=== PATIENT | male | born 1940 | race Caucasian/White ===

== ENCOUNTER → 2017-08-11 | Outpatient (CLI) | payer MEDICARE ==
[2017-08-11 11:57] LABS: Blood Urea Nitrogen 18 mg/dL (9-20)
--- NOTE | 2017-08-11 17:06 | CT ---
EXAMINATION TYPE: CT chest w con DATE OF EXAM: 08/11/2017 COMPARISON: NONE HISTORY: Right sided swelling for [address] DLP: 673.3 mGycm, Automated exposure control for dose reduction was used. CONTRAST: Performed injected with 100 mL of Isovue 300. TECHNIQUE: Axial images were obtained at 5 mm thick sections. Reconstructed images are reviewed on [employer] computer in the coronal plane. FINDINGS: Portion of the thyroid visualized is normal. No suspicious lung nodules or focal infiltrates are present. There is a 1.1 cm lymph node in the pretracheal space near the lucas. Couple smaller pretracheal ly mph nodes are present. A 1.2 cm subcarinal lymph node is present on the left. Suspicious hilar adenop athy is not evident. No suspicious axillary adenopathy is evident. The ascending aorta diameter at the level of the main pulmonary artery is 4.1 cm. The main pulmonary artery diameter at the bifurcation is 1.[address] sections are obtained through the upper abdomen. Abdomen is essentially unremarkable. IMPRESSIONS: 1. Few enlarged lymph nodes within the mediastinum discussed above. 2. No suspicious etiology to account for reported right chest swelling
== END | disposition home or self-care (01) ==
LOC: RADCTMAIN 11:31
PROVIDERS: ATTEND Internal Medicine Geriatric Medicine
DX: R59.0 Localized enlarged lymph nodes (principal)
CPT/HCPCS: 82565; 84520; 71260; 36415; Q9967

== ENCOUNTER → 2017-10-08 | Outpatient (CLI) | payer MEDICARE | END | disposition home or self-care (01) | LOC: RADPETMAIN 07:43 | PROVIDERS: ATTEND Internal Medicine Critical Care Medicine | DX: R59.0 Localized enlarged lymph nodes (principal); Z53.9 Procedure and treatment not carried out, unspecified reason ==

== ENCOUNTER → 2017-10-22 | Outpatient (CLI) | payer MEDICARE ==
--- NOTE | 2017-10-24 08:05 | PE ---
EXAMINATION TYPE: PET CT fusion skull to thigh DATE OF EXAM: 10/22/2017 COMPARISON: CT abdomen and pelvis December 30, 2015. CT chest August 11, 2017. HISTORY: Mediastinal Lymphadenopathy per order. TECHNIQUE: Following the intravenous administration of 11.628 mCi of F-18 FDG, whole body images are performed from the skull base to the midthigh. Images are reviewed on the computer in the coronal, axial, and sagittal planes. Reconstructed rotating images are created on independent workstation and reviewed on the computer. A noncontrast CT is performed in conjunction with the PET scan. SCAN: Initial Scan FINDINGS: SKULL BASE AND NECK: No suspicious hypermetabolic uptake is present. CHEST, MEDIASTINUM, AND HILAR REGION: There is persistent borderline pericarinal lymph node measuring 1.1 x 1.0 cm axial image 93 without abnormal hypermetabolic uptake. There are prominent but subcenti meter additional subcarinal, AP window, and bilateral hilar lymph nodes without suspicious hypermetab olic uptake. No areas of abnormal hypermetabolic uptake are present. ABDOMEN AND PELVIS: No suspicious hypermetabolic uptake is seen. OSSEOUS STRUCTURES: No suspicious hypermetabolic uptake is noted. OTHER CT: Moderate calcified plaque right carotid bulb is present. Some focal scarring right middle lobe just above diaphragm axial image 119 is redemonstrated. There is severe 3 vessel coronary calcification which is noted marker for coronary artery disease. There is moderate biatrial dilatation. Ascending aorta measures up to 4.3 cm in diameter axial image 98. Cholecystectomy clips are redemonstrated. Small fat-containing umbilical hernia is redemonstrated. Small degree of bilateral gynecomastia is present. There is enlarged prostate gland consistent with BPH, correlate clinically bulging on bladder base. There is facet arthropathy lower lumbar levels. There is multilevel spurring in the lower thoracic sp ine. IMPRESSION: No suspicious hypermetabolic uptake is seen to suggest malignancy, stable borderline medi astinal lymph nodes favored benign without abnormal hypermetabolic uptake.
== END | disposition home or self-care (01) ==
LOC: RADPETMAIN 07:37
PROVIDERS: ATTEND Internal Medicine Critical Care Medicine
DX: R59.0 Localized enlarged lymph nodes (principal)
CPT/HCPCS: 78815; A9552

== ENCOUNTER 2017-12-06 07:06 | Emergency (ER) | payer MEDICARE ==
[2017-12-06 07:22] VITALS: RESP 18; TEMP 98.2
--- NOTE | 2017-12-06 07:33 | ED ---
Male Urogenital HPI - General Chief complaint: Urogenital Stated complaint: Urine retention, abdominal pain Time Seen by Provider: 12/06/17 07:23 Source: patient, RN notes reviewed Mode of arrival: ambulatory Limitations: no limitations - History of Present Illness Initial comments: 77-year-old male presents emergency Department chief complaint of unable to urinate. Patient states that this has been present again worse over the last few weeks but states overnight he states he cannot get a couple dribbles out and he feels a pressure. He states his bladder is full. Patient states that he does take Flomax on a regular basis has been taking it for several years. He states he has an appointment with urology but not for one month. Patient states that he cannot tolerate the pressure any more. - Related Data Home Medications Medication Instructions Recorded Confirmed Fish Oil/Dha/Epa [Fish Oil 1,200 1 cap PO DAILY 12/06/17 12/06/17 mg Fish Oil] Metoprolol Tartrate [Lopressor] 12.5 mg PO DAILY 12/06/17 12/06/17 Tamsulosin [Flomax] 0.4 mg PO DAILY 12/06/17 12/06/17 Warfarin [Coumadin] 5 mg PO HS 12/06/17 12/06/17 Allergies Allergy/AdvReac Type Severity Reaction Status Date / Time No Known Allergies Allergy Verified 12/06/17 08:20 Review of Systems ROS Statement: Those systems with pertinent positive or pertinent negative responses have been documented in the HPI. ROS Other: All systems not noted in ROS Statement are negative. Past Medical History Past Medical History: Atrial Fibrillation, Sleep Apnea/CPAP/BIPAP Additional Past Medical History / Comment(s): enlarged prostate History of Any Multi-Drug Resistant Organisms: None Reported Past Surgical History: Cholecystectomy Additional Past Surgical History / Comment(s): right first digit top phlange removed, bilateral knee ortho Past Psychological History: No Psychological Hx Reported Smoking Status: Former smoker Past Alcohol Use History: Daily Past Drug Use History: None Reported General Exam Limitations: no limitations General appearance: alert, in no apparent distress Respiratory exam: Present: normal lung sounds bilaterally. Absent: respiratory distress, wheezes, rales, rhonchi, stridor Cardiovascular Exam: Present: regular rate, normal rhythm, normal heart sounds. Absent: systolic murmur, diastolic murmur, rubs, gallop, clicks GI/Abdominal exam: Present: soft, distended (Lower, suprapubic region), tenderness, normal bowel sounds. Absent: guarding, rebound, rigid Back exam: Absent: CVA tenderness (R), CVA tenderness (L) Course Vital Signs 12/06/17 07:17 Temperature 98.2 F Pulse Rate 94 Respiratory 18 Rate Blood Pressure 181/87 O2 Sat by Pulse 95 Oximetry Medical Decision Making - Medical Decision Making 77-year-old male presented for urinary retention. He did have bladder scan showing greater than 999. Patient had a Wood placed which alleviated patient' s symptoms of urinary pressure abdominal pain. Patient will have Wood left in and follow-up with urology. Return parameters were discussed. - Lab Data Lab Results 12/06/17 Range/Units 08:16 Urine Color Light Yellow Urine Appearance Clear (Clear) Urine pH 5.0 (5.0-8.0) Ur Specific [place] 1.006 (1.001-1.035) Urine Protein Negative (Negative) Urine Glucose (UA) Negative (Negative) Urine Ketones Negative (Negative) Urine Blood Small H (Negative) Urine Nitrite Negative (Negative) Urine Bilirubin Negative (Negative) Urine Urobilinogen <2.0 (<2.0) mg/dL Ur Leukocyte Esterase Negative (Negative) Urine RBC 1 (0-5) /hpf Urine WBC 1 (0-5) /hpf Urine Mucus Rare H (None) /hpf Disposition Clinical Impression: Urinary retention Disposition: HOME SELF-CARE Condition: Stable Instructions: Urinary Retention in Men (ED) Additional Instructions: Please return to the Emergency Department if symptoms worsen or any other concerns. Is patient prescribed a controlled substance at d/c from ED?: No Referrals: Altaf Duff MD [Primary Care Provider] - 1-2 days Sam Grissom MD [STAFF PHYSICIAN] - 1-2 days Time of Disposition: 08:35
[2017-12-06 08:31] LABS: Appearance,Urine Clear (Clear); Bilirubin,Urine Negative (Negative); Blood,Urine Small (Negative); Color,Urine Light Yellow; Glucose,Urine (UA) Negative (Negative); Ketones,Urine Negative (Negative); Leukocyte Esterase,Urine Negative (Negative); Mucus,Urine Rare /hpf; Nitrite,Urine Negative (Negative); Protein,Urine Negative (Negative); RBC,Urine 1 /hpf (0-5); Specific Gravity,Urine 1.006 (1.001-1.035); Urobilinogen,Urine <2.0 mg/dL (<2.0); WBC,Urine 1 /hpf (0-5)
[2017-12-06 08:58] VITALS: BP 137/82; PULSE 85
== END 2017-12-06 08:56 | disposition home or self-care (01) ==
LOC: EC 07:06
DX: R33.9 Retention of urine, unspecified (principal); R14.0 Abdominal distension (gaseous); R10.9 Unspecified abdominal pain; I48.91 Unspecified atrial fibrillation; N40.1 Benign prostatic hyperplasia with lower urinary tract symptoms; G47.30 Sleep apnea, unspecified; Z87.891 Personal history of nicotine dependence; Z79.01 Long term (current) use of anticoagulants; Z79.899 Other long term (current) drug therapy; Z90.49 Acquired absence of other specified parts of digestive tract
CPT/HCPCS: 51798; 81001; 87086; 99284

== ENCOUNTER 2017-12-22 06:44 | Emergency (ER) | payer MEDICARE ==
[2017-12-22 06:53] VITALS: RESP 18
[2017-12-22] MEDS ORDERED: SODIUM CHLORIDE 0.9% 1,000 ML IV STA ×2 (07:33)
[2017-12-22] MEDS ORDERED: SODIUM CHLORIDE 0.9% 500 ML IV STA (07:33)
[2017-12-22] MEDS ORDERED: ACETAMINOPHEN TAB 500 MG TAB PO STA (07:43)
--- NOTE | 2017-12-22 07:45 | ED ---
Fever HPI - General Chief Complaint: Fever Stated Complaint: Catheter issue Time Seen by Provider: 12/22/17 07:33 Source: patient, family, RN notes reviewed Mode of arrival: wheelchair Limitations: no limitations - History of Present Illness Initial Comments: This is a 77-year-old male presents emergency Department chief complaint of fever. Patient states he woke up around 1 AM states he did not feel well states that he developed shaking chills around 6 AM. Patient states that he's had no cold-like symptoms including runny nose, sore throat, headache, neck pain , cough, chest congestion. Patient states that he has had a Wood catheter last 11 days in which she has seen neurology for and they told him to leave for 2 more weeks but states that he has noticed that his urine has become cloudy. Patient states that he had a fever this morning has not taken any Tylenol cannot take any NSAIDs due to currently being on Coumadin. Patient states he has no abdominal pain and no back or flank pain. - Related Data Home Medications Medication Instructions Recorded Confirmed Fish Oil/Dha/Epa [Fish Oil 1,200 1 cap PO DAILY 12/06/17 12/22/17 mg Fish Oil] Metoprolol Tartrate [Lopressor] 12.5 mg PO DAILY 12/06/17 12/22/17 Tamsulosin [Flomax] 0.4 mg PO DAILY 12/06/17 12/22/17 Warfarin [Coumadin] 5 mg PO HS 12/06/17 12/22/17 Glucosam/Tom-Msm1/C/Caleb/Bosw 1 tab PO DAILY 12/22/17 12/22/17 [Glucosamine-Chondroitin Tablet] Previous Rx's Medication Instructions Recorded Sulfamethox-Tmp 800-160Mg [Bactrim 1 each PO Q12HR #20 tab 12/22/17 Ds] Allergies Allergy/AdvReac Type Severity Reaction Status Date / Time No Known Allergies Allergy Verified 12/22/17 09:10 Review of Systems ROS Statement: Those systems with pertinent positive or pertinent negative responses have been documented in the HPI. ROS Other: All systems not noted in ROS Statement are negative. Past Medical History Past Medical History: Atrial Fibrillation, Sleep Apnea/CPAP/BIPAP Additional Past Medical History / Comment(s): enlarged prostate History of Any Multi-Drug Resistant Organisms: None Reported Past Surgical History: Cholecystectomy Additional Past Surgical History / Comment(s): right first digit top phlange removed, bilateral knee ortho Past Psychological History: No Psychological Hx Reported Smoking Status: Former smoker Past Alcohol Use History: Daily Past Drug Use History: None Reported General Exam Limitations: no limitations General appearance: alert, in no apparent distress Head exam: Present: atraumatic, normocephalic, normal inspection Eye exam: Present: normal appearance, PERRL, EOMI. Absent: scleral icterus, conjunctival injection, periorbital swelling ENT exam: Present: normal exam, normal oropharynx, mucous membranes moist Neck exam: Present: normal inspection, full ROM. Absent: tenderness, meningismus, lymphadenopathy Respiratory exam: Present: normal lung sounds bilaterally. Absent: respiratory distress, wheezes, rales, rhonchi, stridor Cardiovascular Exam: Present: regular rate, normal rhythm, normal heart sounds. Absent: systolic murmur, diastolic murmur, rubs, gallop, clicks GI/Abdominal exam: Present: soft, normal bowel sounds. Absent: distended, tenderness, guarding, rebound, rigid exam: Absent: normal inspection (Wood catheter in place) Back exam: Absent: CVA tenderness (R), CVA tenderness (L) Neurological exam: Present: alert, oriented X3, CN II-XII intact Skin exam: Present: warm, dry, intact, normal color. Absent: rash Course Vital Signs 12/22/17 12/22/17 06:49 08:13 Temperature 103.0 F H 100.4 F H Pulse Rate 71 82 Respiratory 18 18 Rate Blood Pressure 104/60 119/66 O2 Sat by Pulse 96 99 Oximetry Medical Decision Making - Medical Decision Making 77-year-old male presents emergency department for fever, possible urinary tract infection. Patient's found to have urinary tract infection caused by Wood. Patient we given 2 g Rocephin emergency Department discharge on ciprofloxacin and will follow-up urology. Return parameters discussed. - Lab Data Result diagrams: 12/22/17 08:15 12/22/17 08:15 Lab Results 12/22/17 12/22/17 12/22/17 Range/Units 08:15 08:15 08:15 WBC 12.0 H (3.8-10.6) k/uL RBC 4.47 (4.30-5.90) m/uL Hgb 14.0 (13.0-17.5) gm/dL Hct 42.1 (39.0-53.0) % MCV 94.2 (80.0-100.0) fL MCH 31.3 (25.0-35.0) pg MCHC 33.3 (31.0-37.0) g/dL RDW 12.8 (11.5-15.5) % Plt Count 135 L (150-450) k/uL Neutrophils % 94 % Lymphocytes % 2 % Monocytes % 2 % Eosinophils % 2 % Basophils % 0 % Neutrophils # 11.3 H (1.3-7.7) k/uL Lymphocytes # 0.3 L (1.0-4.8) k/uL Monocytes # 0.2 (0-1.0) k/uL Eosinophils # 0.2 (0-0.7) k/uL Basophils # 0.0 (0-0.2) k/uL PT (9.0-12.0) sec INR (<1.2) APTT (22.0-30.0) sec Sodium 134 L (137-145) mmol/L Potassium 4.1 (3.5-5.1) mmol/L Chloride 103 (98-107) mmol/L Carbon Dioxide 22 (22-30) mmol/L Anion Gap 9 mmol/L BUN 15 (9-20) mg/dL Creatinine 0.91 (0.66-1.25) mg/dL Est GFR (CKD-EPI)AfAm >90 (>60 ml/min/1.73 sqM) Est GFR (CKD-EPI)NonAf 81 (>60 ml/min/1.73 sqM) Glucose 114 H (74-99) mg/dL Plasma Lactic Acid Willie 2.0 (0.7-2.0) mmol/L Calcium 9.1 (8.4-10.2) mg/dL Total Bilirubin 2.1 H (0.2-1.3) mg/dL AST 27 (17-59) U/L ALT 27 (21-72) U/L Alkaline Phosphatase 51 (38-126) U/L Total Protein 6.2 L (6.3-8.2) g/dL Albumin 3.7 (3.5-5.0) g/dL Urine Color Urine Appearance (Clear) Urine pH (5.0-8.0) Ur Specific [place] (1.001-1.035) Urine Protein (Negative) Urine Glucose (UA) (Negative) Urine Ketones (Negative) Urine Blood (Negative) Urine Nitrite (Negative) Urine Bilirubin (Negative) Urine Urobilinogen (<2.0) mg/dL Ur Leukocyte Esterase (Negative) Urine RBC (0-5) /hpf Urine WBC (0-5) /hpf Urine WBC Clumps (None) /hpf Urine Bacteria (None) /hpf Urine Mucus (None) /hpf Urine Sperm (None) /hpf 12/22/17 12/22/17 Range/Units 08:15 08:15 WBC (3.8-10.6) k/uL RBC (4.30-5.90) m/uL Hgb (13.0-17.5) gm/dL Hct (39.0-53.0) % MCV (80.0-100.0) fL MCH (25.0-35.0) pg MCHC (31.0-37.0) g/dL RDW (11.5-15.5) % Plt Count (150-450) k/uL Neutrophils % % Lymphocytes % % Monocytes % % Eosinophils % % Basophils % % Neutrophils # (1.3-7.7) k/uL Lymphocytes # (1.0-4.8) k/uL Monocytes # (0-1.0) k/uL Eosinophils # (0-0.7) k/uL Basophils # (0-0.2) k/uL PT 14.9 H (9.0-12.0) sec INR 1.6 H (<1.2) APTT 26.4 (22.0-30.0) sec Sodium (137-145) mmol/L Potassium (3.5-5.1) mmol/L Chloride (98-107) mmol/L Carbon Dioxide (22-30) mmol/L Anion Gap mmol/L BUN (9-20) mg/dL Creatinine (0.66-1.25) mg/dL Est GFR (CKD-EPI)AfAm (>60 ml/min/1.73 sqM) Est GFR (CKD-EPI)NonAf (>60 ml/min/1.73 sqM) Glucose (74-99) mg/dL Plasma Lactic Acid [place] (0.7-2.0) mmol/L Calcium (8.4-10.2) mg/dL Total Bilirubin (0.2-1.3) mg/dL AST (17-59) U/L ALT (21-72) U/L Alkaline Phosphatase (38-126) U/L Total Protein (6.3-8.2) g/dL Albumin (3.5-5.0) g/dL Urine Color Yellow Urine Appearance Cloudy (Clear) Urine pH 6.5 (5.0-8.0) Ur Specific [place] 1.013 (1.001-1.035) Urine Protein 1+ H (Negative) Urine Glucose (UA) Negative (Negative) Urine Ketones Negative (Negative) Urine Blood Large H (Negative) Urine Nitrite Negative (Negative) Urine Bilirubin Negative (Negative) Urine Urobilinogen <2.0 (<2.0) mg/dL Ur Leukocyte Esterase Large H (Negative) Urine RBC >182 H (0-5) /hpf Urine WBC 148 H (0-5) /hpf Urine WBC Clumps Many H (None) /hpf Urine Bacteria Rare H (None) /hpf Urine Mucus Rare H (None) /hpf Urine Sperm Rare (None) /hpf Disposition Clinical Impression: UTI (urinary tract infection) due to urinary indwelling Wood catheter, Fever Disposition: HOME SELF-CARE Condition: Stable Instructions: Urinary Tract Infection in Men (ED) Additional Instructions: Please return to the Emergency Department if symptoms worsen or any other concerns. Prescriptions: Sulfamethox-Tmp 800-160Mg [Bactrim Ds] 1 each PO Q12HR #20 tab Is patient prescribed a controlled substance at d/c from ED?: No Referrals: Altaf Duff MD [Primary Care Provider] - 1-2 days Time of Disposition: 10:10
[2017-12-22] MEDS ORDERED: LIDOCAINE URO-JET JELLY 2% 5 ML KIT URETHRAL ONE (07:54)
[2017-12-22 08:51] LABS: Appearance,Urine Cloudy (Clear); Bacteria,Urine Rare /hpf; Bilirubin,Urine Negative (Negative); Blood,Urine Large (Negative); Color,Urine Yellow; Glucose,Urine (UA) Negative (Negative); Ketones,Urine Negative (Negative); Leukocyte Esterase,Urine Large (Negative); Mucus,Urine Rare /hpf; Nitrite,Urine Negative (Negative); PH, Urine 6.5 (5.0-8.0); Protein,Urine 1+ (Negative); RBC,Urine >182 /hpf (0-5); Specific Gravity,Urine 1.013 (1.001-1.035); Sperm,Urine Rare /hpf; Urobilinogen,Urine <2.0 mg/dL (<2.0); WBC,Urine 148 /hpf (0-5)
[2017-12-22 08:56] LABS: INR 1.6 (<1.2); Partial Thromboplastin Time 26.4 sec (22.0-30.0); Prothrombin Time 14.9 sec (9.0-12.0)
[2017-12-22 09:02] LABS: Basophils % (A) 0 %; Eosinophils # (A) 0.2 k/uL (0-0.7); Eosinophils % (A) 2 %; HCT 42.1 % (39.0-53.0); Lymphocytes # (A) 0.3 k/uL (1.0-4.8); Lymphocytes % (A) 2 %; MCH 31.3 pg (25.0-35.0); MCHC 33.3 g/dL (31.0-37.0); MCV 94.2 fL (80.0-100.0); Mean Platelet Volume 7.1; Monocytes # (A) 0.2 k/uL (0-1.0); Monocytes % (A) 2 %; Neutrophils # (A) 11.3 k/uL (1.3-7.7); Neutrophils % (A) 94 %; Platelet Count 135 k/uL (150-450); RBC 4.47 m/uL (4.30-5.90); RDW 12.8 % (11.5-15.5)
[2017-12-22 09:03] LABS: ALT 27 U/L (21-72); AST 27 U/L (17-59); Albumin 3.7 g/dL (3.5-5.0); Alkaline Phosphatase 51 U/L (38-126); Anion Gap 9 mmol/L; Blood Urea Nitrogen 15 mg/dL (9-20); Calcium 9.1 mg/dL (8.4-10.2); Carbon Dioxide 22 mmol/L (22-30); Chloride 103 mmol/L (98-107); Glucose 114 mg/dL (74-99); Potassium 4.1 mmol/L (3.5-5.1); Sodium 134 mmol/L (137-145); Total Bilirubin 2.1 mg/dL (0.2-1.3); Total Protein 6.2 g/dL (6.3-8.2)
[2017-12-22] MEDS ORDERED: cefTRIAXone IN SWFI 2,000 MG/20 ML SYRINGE IVP STA (10:09)
[2017-12-22 10:41] VITALS: BP 111/63; PULSE 78; TEMP 98.2
--- NOTE | 2017-12-23 03:47 | CDI ---
Documentation Clarification OP Dear Eddie Hennessy, PAC Please provide procedure done related to lidocaine administered. Thank you, Ahsan Gonzalez Marketing Research Coordinator If you have any questions, please contact [employer] at [phone] lidocaine used my nurse for charline FROST
== END 2017-12-22 11:06 | disposition home or self-care (01) ==
LOC: EC 06:44
DX: T83.518A Infection and inflammatory reaction due to other urinary catheter, initial encounter (principal); N39.0 Urinary tract infection, site not specified; N40.0 Benign prostatic hyperplasia without lower urinary tract symptoms; I48.91 Unspecified atrial fibrillation; G47.30 Sleep apnea, unspecified; Z99.89 Dependence on other enabling machines and devices; Z87.891 Personal history of nicotine dependence; Z79.01 Long term (current) use of anticoagulants; Z79.899 Other long term (current) drug therapy; Y84.6 Urinary catheterization as the cause of abnormal reaction of the patient, or of later complication, without mention of misadventure at the time of the procedure
CPT/HCPCS: 99283; 96374; 96361 ×3; 36415; 80053; 83605; 85025; 85610; 85730; 81001; 87040; 87086; 87077; 87186; J0696

== ENCOUNTER → 2018-01-23 | Outpatient (CLI) | payer MEDICARE ==
--- NOTE | 2018-01-23 08:56 | US ---
EXAMINATION TYPE: US prostate transrectal DATE OF EXAM: 01/23/2018 COMPARISON: NONE CLINICAL HISTORY: N40.0 Benign BPH. History of enlarged prostate. Patient has catheter in because he can't empty his bladder. This examination was performed using the transrectal probe. EXAM MEASUREMENTS: Gland Size: 8.1 x 4.5 x 5.9cm Volume: 112.4 Predicted PSA: 13.5 Actual PSA (if available):3.2 Grossly enlarged gland, heterogeneous, no obvious mass seen. Wood catheter is present. IMPRESSION: Enlarged and heterogenous prostate gland with findings of benign prostatic hypertrophy. No focal suspicious hypoechoic lesion.
== END | disposition home or self-care (01) ==
LOC: RADUSMAIN 07:51
PROVIDERS: ATTEND Urology
DX: N40.0 Benign prostatic hyperplasia without lower urinary tract symptoms (principal); Z88.8 Allergy status to other drugs, medicaments and biological substances
CPT/HCPCS: 76872

== ENCOUNTER 2018-01-31 08:53 | Inpatient (IN) | payer MEDICARE ==
[2018-01-31] MEDS ORDERED: IBUPROFEN IV 600 MG in SODIUM CHLORIDE 0.9% 250 ML IV STA (09:51)
[2018-01-31] MEDS ORDERED: ACETAMINOPHEN TAB 500 MG TAB PO STA (09:51)
[2018-01-31] MEDS: SODIUM CHLORIDE 0.9% 500 ML 500 ML IV SCH ×3 (10:02→10:55)
--- NOTE | 2018-01-31 10:33 | ED ---
Fever HPI - General Chief Complaint: Fever Stated Complaint: tremors Time Seen by Provider: 01/31/18 09:46 Source: patient, RN notes reviewed, old records reviewed Mode of arrival: wheelchair Limitations: no limitations - History of Present Illness Initial Comments: Patient is a 77-year-old male presents today with chief complaint of fever bodyaches altered mental status. He complains of severe weakness. Patient has been treated for significant urinary tract infections. He is currently on an antibiotic. He had his catheter removed yesterday from his urologist Dr. Sandoval. Patient is on Coumadin Patient has a history of atrial fibrillation. Patient recently proceeded greenlight therapy for enlarged prostate. They were unable to suture procedure due to the fact the Patient is on Coumadin. Patient arrives to emergency room with fever 103.3. His complaints and back pain. Minimal abdominal discomfort. Patient has had no recent Motrin or Tylenol. - Related Data Home Medications Medication Instructions Recorded Confirmed Fish Oil/Dha/Epa [Fish Oil 1,200 1 cap PO DAILY 12/06/17 01/31/18 mg Fish Oil] Metoprolol Tartrate [Lopressor] 12.5 mg PO DAILY 12/06/17 01/31/18 Tamsulosin [Flomax] 0.4 mg PO DAILY 12/06/17 01/31/18 Warfarin [Coumadin] 5 mg PO SUTUTHFR 12/06/17 01/31/18 Glucosam/Tom-Msm1/C/Caleb/Bosw 1 tab PO DAILY 12/22/17 01/31/18 [Glucosamine-Chondroitin Tablet] Warfarin [Coumadin] 7.5 mg PO MOWESA 01/31/18 01/31/18 Allergies Allergy/AdvReac Type Severity Reaction Status Date / Time terbinafine [From Lamisil] Allergy Rash/Hives Verified 01/31/18 10:23 sulfamethoxazole AdvReac Unknown Verified 01/31/18 10:23 [From Bactrim] trimethoprim [From Bactrim] AdvReac Unknown Verified 01/31/18 10:23 Review of Systems ROS Statement: Those systems with pertinent positive or pertinent negative responses have been documented in the HPI. ROS Other: All systems not noted in ROS Statement are negative. Past Medical History Past Medical History: Atrial Fibrillation, Sleep Apnea/CPAP/BIPAP Additional Past Medical History / Comment(s): enlarged prostate History of Any Multi-Drug Resistant Organisms: None Reported Past Surgical History: Cholecystectomy Additional Past Surgical History / Comment(s): right first digit top phlange removed, bilateral knee ortho Past Psychological History: No Psychological Hx Reported Smoking Status: Former smoker Past Alcohol Use History: Daily Past Drug Use History: None Reported General Exam - General Exam Comments Initial Comments: Weak appearing 77-year-old male. Patient appears in moderate distress. Limitations: no limitations General appearance: alert, in no apparent distress Head exam: Present: atraumatic Eye exam: Present: normal appearance, PERRL, EOMI. Absent: scleral icterus, conjunctival injection, periorbital swelling ENT exam: Present: normal exam, mucous membranes moist Neck exam: Present: normal inspection. Absent: tenderness, meningismus, lymphadenopathy Respiratory exam: Present: normal lung sounds bilaterally. Absent: respiratory distress, wheezes, rales, rhonchi, stridor Cardiovascular Exam: Present: normal rhythm, normal heart sounds. Absent: regular rate (Tachycardic at 120 beats were minute.), systolic murmur, diastolic murmur, rubs, gallop, clicks GI/Abdominal exam: Present: soft, normal bowel sounds. Absent: distended, tenderness, guarding, rebound, rigid Back exam: Present: normal inspection Neurological exam: Present: alert Psychiatric exam: Present: normal affect, normal mood Skin exam: Present: warm Course Vital Signs 01/31/18 01/31/18 01/31/18 09:09 09:40 09:50 Temperature 102.7 F H 103.3 F H Pulse Rate 118 H Respiratory 20 18 Rate Blood Pressure 138/79 124/54 O2 Sat by Pulse 95 95 Oximetry 01/31/18 01/31/18 01/31/18 10:00 10:30 11:00 Temperature 102.4 F H Pulse Rate 97 85 106 H Respiratory 18 18 18 Rate Blood Pressure 124/54 121/74 105/68 O2 Sat by Pulse 97 98 96 Oximetry 01/31/18 01/31/18 01/31/18 11:15 11:25 11:45 Temperature Pulse Rate 86 105 H Respiratory 18 18 Rate Blood Pressure 97/51 84/54 96/50 O2 Sat by Pulse 95 94 L Oximetry 01/31/18 01/31/18 01/31/18 11:52 12:00 12:30 Temperature 101.2 F H Pulse Rate 106 H 107 H Respiratory 12 21 Rate Blood Pressure 84/60 92/59 O2 Sat by Pulse 95 Oximetry 01/31/18 01/31/18 01/31/18 12:31 12:32 12:33 Temperature Pulse Rate 93 114 H Respiratory 15 7 L 5 L Rate Blood Pressure 92/59 96/62 96/62 O2 Sat by Pulse Oximetry 01/31/18 01/31/18 01/31/18 12:34 12:35 12:36 Temperature Pulse Rate 89 100 107 H Respiratory 14 22 20 Rate Blood Pressure 96/62 96/62 96/62 O2 Sat by Pulse Oximetry 01/31/18 01/31/18 01/31/18 12:37 12:38 12:39 Temperature Pulse Rate 110 H 120 H 105 H Respiratory 34 H 23 34 H Rate Blood Pressure 97/72 97/72 97/72 O2 Sat by Pulse Oximetry 01/31/18 01/31/18 01/31/18 12:40 12:41 12:42 Temperature Pulse Rate Respiratory Rate Blood Pressure 97/72 97/72 97/72 O2 Sat by Pulse Oximetry 01/31/18 01/31/18 01/31/18 12:43 12:44 12:45 Temperature Pulse Rate Respiratory Rate Blood Pressure 97/72 97/72 97/72 O2 Sat by Pulse Oximetry 01/31/18 01/31/18 01/31/18 12:46 12:47 12:48 Temperature Pulse Rate Respiratory Rate Blood Pressure 110/66 110/66 110/66 O2 Sat by Pulse Oximetry 01/31/18 01/31/18 01/31/18 12:49 12:50 12:51 Temperature Pulse Rate 112 H 103 H Respiratory 12 9 L Rate Blood Pressure 110/66 110/66 110/66 O2 Sat by Pulse Oximetry 01/31/18 01/31/18 01/31/18 12:52 12:53 12:55 Temperature Pulse Rate 108 H 105 H Respiratory 26 H 5 L 18 Rate Blood Pressure 110/66 110/66 O2 Sat by Pulse Oximetry 01/31/18 13:32 Temperature 98.2 F Pulse Rate 89 Respiratory 18 Rate Blood Pressure 87/55 O2 Sat by Pulse 96 Oximetry Medical Decision Making - Medical Decision Making 77-year-old male presents emergency department today with chief complaint of rigors, altered mental status and confusion. Concern for urinary tract infection. Patient had recent urinary catheter removed yesterday by Dr. Sandoval. This tender concern for a further urinary tract infection. He has not been able to urinate today. He did urinate earlier this morning. Patient was given aggressive fluid resuscitation had a fever of 103.9. Tachycardic at 120 bpm. Patient was given 2 L bolus, Motrin Tylenol. After his fever diminished she became less disoriented and is otherwise feeling much better. Urinalysis after he completed a Wood catheter due to urinary retention, shows significant UTI. Patient was started on initially Rocephin but past urine culture we'll put the Patient on Unasyn at this time. Chest x-rays reviewed and normal. Patient will be admitted at this time for urosepsis. - Lab Data Result diagrams: 01/31/18 09:45 01/31/18 09:45 Lab Results 01/31/18 01/31/18 01/31/18 Range/Units 09:45 09:45 09:45 WBC 6.5 (3.8-10.6) k/uL RBC 4.37 (4.30-5.90) m/uL Hgb 14.0 (13.0-17.5) gm/dL Hct 41.1 (39.0-53.0) % MCV 94.1 (80.0-100.0) fL MCH 32.1 (25.0-35.0) pg MCHC 34.1 (31.0-37.0) g/dL RDW 12.5 (11.5-15.5) % Plt Count 156 (150-450) k/uL Neutrophils % (Manual) 81 % Band Neutrophils % 13 % Lymphocytes % (Manual) 5 % Eosinophils % (Manual) 2 % Neutrophils # (Manual) 6.10 (1.3-7.7) k/uL Lymphocytes # (Manual) 0.33 L (1.0-4.8) k/uL Eosinophils # (Manual) 0.13 (0-0.7) k/uL Nucleated RBCs 0 (0-0) /100 WBC Toxic Granulation Present Poikilocytosis (manual Present Anisocytosis (manual) Present Stomatocytes Present PT (9.0-12.0) sec INR (<1.2) APTT (22.0-30.0) sec Sodium 136 L (137-145) mmol/L Potassium 4.8 (3.5-5.1) mmol/L Chloride 102 (98-107) mmol/L Carbon Dioxide 23 (22-30) mmol/L Anion Gap 11 mmol/L BUN 18 (9-20) mg/dL Creatinine 0.92 (0.66-1.25) mg/dL Est GFR (CKD-EPI)AfAm >90 (>60 ml/min/1.73 sqM) Est GFR (CKD-EPI)NonAf 80 (>60 ml/min/1.73 sqM) Glucose 124 H (74-99) mg/dL Plasma Lactic Acid Willie (0.7-2.0) mmol/L Calcium 9.0 (8.4-10.2) mg/dL Total Bilirubin 1.5 H (0.2-1.3) mg/dL AST 29 (17-59) U/L ALT 42 (21-72) U/L Alkaline Phosphatase 59 (38-126) U/L Total Creatine Kinase 35 L (55-170) U/L CK-MB (CK-2) 0.5 (0.0-2.4) ng/mL CK-MB (CK-2) Rel Index 1.4 Troponin I <0.012 (0.000-0.034) ng/mL Total Protein 6.4 (6.3-8.2) g/dL Albumin 3.9 (3.5-5.0) g/dL Urine Color Urine Appearance (Clear) Urine pH (5.0-8.0) Ur Specific Sharon (1.001-1.035) Urine Protein (Negative) Urine Glucose (UA) (Negative) Urine Ketones (Negative) Urine Blood (Negative) Urine Nitrite (Negative) Urine Bilirubin (Negative) Urine Urobilinogen (<2.0) mg/dL Ur Leukocyte Esterase (Negative) Urine RBC (0-5) /hpf Urine WBC (0-5) /hpf Urine Bacteria (None) /hpf Urine Mucus (None) /hpf 01/31/18 01/31/18 01/31/18 Range/Units 09:45 09:45 13:04 WBC (3.8-10.6) k/uL RBC (4.30-5.90) m/uL Hgb (13.0-17.5) gm/dL Hct (39.0-53.0) % MCV (80.0-100.0) fL MCH (25.0-35.0) pg MCHC (31.0-37.0) g/dL RDW (11.5-15.5) % Plt Count (150-450) k/uL Neutrophils % (Manual) % Band Neutrophils % % Lymphocytes % (Manual) % Eosinophils % (Manual) % Neutrophils # (Manual) (1.3-7.7) k/uL Lymphocytes # (Manual) (1.0-4.8) k/uL Eosinophils # (Manual) (0-0.7) k/uL Nucleated RBCs (0-0) /100 WBC Toxic Granulation Poikilocytosis (manual Anisocytosis (manual) Stomatocytes PT 12.4 H (9.0-12.0) sec INR 1.3 H (<1.2) APTT 24.0 (22.0-30.0) sec Sodium (137-145) mmol/L Potassium (3.5-5.1) mmol/L Chloride (98-107) mmol/L Carbon Dioxide (22-30) mmol/L Anion Gap mmol/L BUN (9-20) mg/dL Creatinine (0.66-1.25) mg/dL Est GFR (CKD-EPI)AfAm (>60 ml/min/1.73 sqM) Est GFR (CKD-EPI)NonAf (>60 ml/min/1.73 sqM) Glucose (74-99) mg/dL Plasma Lactic Acid Willie 1.6 (0.7-2.0) mmol/L Calcium (8.4-10.2) mg/dL Total Bilirubin (0.2-1.3) mg/dL AST (17-59) U/L ALT (21-72) U/L Alkaline Phosphatase (38-126) U/L Total Creatine Kinase (55-170) U/L CK-MB (CK-2) (0.0-2.4) ng/mL CK-MB (CK-2) Rel Index Troponin I (0.000-0.034) ng/mL Total Protein (6.3-8.2) g/dL Albumin (3.5-5.0) g/dL Urine Color Yellow Urine Appearance Turbid (Clear) Urine pH 6.0 (5.0-8.0) Ur Specific Sharon 1.014 (1.001-1.035) Urine Protein 1+ H (Negative) Urine Glucose (UA) Negative (Negative) Urine Ketones Negative (Negative) Urine Blood Moderate H (Negative) Urine Nitrite Negative (Negative) Urine Bilirubin Negative (Negative) Urine Urobilinogen <2.0 (<2.0) mg/dL Ur Leukocyte Esterase Large H (Negative) Urine RBC 60 H (0-5) /hpf Urine WBC >182 H (0-5) /hpf Urine Bacteria Many H (None) /hpf Urine Mucus Rare H (None) /hpf 01/31/18 10:32 EKG shows A. fib with RVR ST-T wave abnormality considering lateral ischemia. Ventricular rate of 113 beats were minute. QRS ration 72. QTQTC 300/411. - Radiology Data Radiology results: report reviewed Chest x-rays negative for any acute cardio pulmonary process. Disposition Clinical Impression: UTI (urinary tract infection), Sepsis Disposition: ADMITTED IP TO THIS HOSP Condition: Stable Referrals: Altaf Duff MD [Primary Care Provider] - 1-2 days Time of Disposition: 13:46
[2018-01-31 10:36] LABS: HCT 41.1 % (39.0-53.0); MCH 32.1 pg (25.0-35.0); MCHC 34.1 g/dL (31.0-37.0); MCV 94.1 fL (80.0-100.0); Mean Platelet Volume 7.3; Platelet Count 156 k/uL (150-450); RBC 4.37 m/uL (4.30-5.90); RDW 12.5 % (11.5-15.5); WBC 6.5 k/uL (3.8-10.6)
[2018-01-31 10:43] LABS: INR 1.3 (<1.2); Prothrombin Time 12.4 sec (9.0-12.0)
[2018-01-31 10:48] LABS: ALT 42 U/L (21-72); AST 29 U/L (17-59); Albumin 3.9 g/dL (3.5-5.0); Alkaline Phosphatase 59 U/L (38-126); Anion Gap 11 mmol/L; Blood Urea Nitrogen 18 mg/dL (9-20); Carbon Dioxide 23 mmol/L (22-30); Chloride 102 mmol/L (98-107); Glucose 124 mg/dL (74-99); Potassium 4.8 mmol/L (3.5-5.1); Sodium 136 mmol/L (137-145); Total Bilirubin 1.5 mg/dL (0.2-1.3); Total Protein 6.4 g/dL (6.3-8.2)
[2018-01-31] MEDS: SODIUM CHLORIDE 0.9% 1,000 ML IV SCH ×2 (10:54→20:16)
[2018-01-31 11:03] LABS: Creatine Kinase 35 U/L (55-170)
[2018-01-31 11:05] LABS: Band Neutrophils % 13 %; Eosinophils # (M) 0.13 k/uL (0-0.7); Lymphocytes # (M) 0.33 k/uL (1.0-4.8); Neutrophils % (M) 81 %; Nucleated Red Blood Cells 0 /100 WBC (0-0); Total Cells Counted 200
[2018-01-31 11:06] LABS: Anisocytosis (M) Present; Poikilocytosis (M) Present; Stomatocytes Present; Toxic Granulation Present
[2018-01-31 11:14] LABS: Creatine Kinase MB 0.5 ng/mL (0.0-2.4); Troponin I <0.012 ng/mL (0.000-0.034)
--- NOTE | 2018-01-31 12:29 | XR ---
EXAMINATION TYPE: XR chest 2V DATE OF EXAM: 01/31/2018 COMPARISON: NONE HISTORY: Fever and urinary tract infection TECHNIQUE: Frontal and lateral views of the chest are obtained. FINDINGS: Low lung volumes creating crowding of the pulmonary vasculature. There is no focal air spac e opacity, pleural effusion, or pneumothorax seen. The cardiac silhouette size is enlarged. The os seous structures are intact. Mild multilevel degenerative changes of the thoracic spine are seen. Karey gical clips are seen within the right upper quadrant. IMPRESSION: No acute cardiopulmonary process.
[2018-01-31] MEDS ORDERED: AMPICILLIN-SULBACTAM 3 GM in SODIUM CHLORIDE 0.9% 100 ML IVPB STA (12:36)
[2018-01-31] MEDS ORDERED: LIDOCAINE URO-JET JELLY 2% 5 ML KIT URETHRAL ONE (12:49)
[2018-01-31 13:36] LABS: Appearance,Urine Turbid (Clear); Bacteria,Urine Many /hpf; Bilirubin,Urine Negative (Negative); Blood,Urine Moderate (Negative); Color,Urine Yellow; Glucose,Urine (UA) Negative (Negative); Ketones,Urine Negative (Negative); Leukocyte Esterase,Urine Large (Negative); Mucus,Urine Rare /hpf; Nitrite,Urine Negative (Negative); Protein,Urine 1+ (Negative); RBC,Urine 60 /hpf (0-5); Specific Gravity,Urine 1.014 (1.001-1.035); Urobilinogen,Urine <2.0 mg/dL (<2.0); WBC,Urine >182 /hpf (0-5)
[2018-01-31] MEDS ORDERED: NALOXONE 0.4 MG/ML 1 ML VIAL IV PRN (14:08)
[2018-01-31] MEDS ORDERED: HYDROcodone/APAP 5-325MG 1 EACH TAB PO PRN (14:08)
[2018-01-31 16:44] LABS: Glucose,Whole Blood 125 mg/dL (75-99)
[2018-01-31] MEDS ORDERED: WARFARIN 5 MG TAB PO SCH (18:00)
[2018-01-31] MEDS: PIPERACILLIN-TAZOBACTAM 3.375 GM in DEXTROSE/WATER 1 50ML.BAG IVPB SCH (18:11)
[2018-01-31] MEDS: DOCUSATE 100 MG CAP PO SCH (20:13)
[2018-02-01] MEDS: PIPERACILLIN-TAZOBACTAM 3.375 GM in DEXTROSE/WATER 1 50ML.BAG IVPB SCH ×3 (03:11→20:10)
[2018-02-01] MEDS: SODIUM CHLORIDE 0.9% 1,000 ML IV SCH ×3 (06:27→20:11)
[2018-02-01 06:41] LABS: Basophils # (A) 0.1 k/uL (0-0.2); Basophils % (A) 0 %; Eosinophils # (A) 0.3 k/uL (0-0.7); Eosinophils % (A) 1 %; HCT 35.4 % (39.0-53.0); HGB 11.8 gm/dL (13.0-17.5); Lymphocytes % (A) 5 %; MCH 31.9 pg (25.0-35.0); MCHC 33.3 g/dL (31.0-37.0); MCV 95.7 fL (80.0-100.0); Mean Platelet Volume 7.4; Monocytes # (A) 0.8 k/uL (0-1.0); Monocytes % (A) 4 %; Neutrophils # (A) 19.5 k/uL (1.3-7.7); Neutrophils % (A) 89 %; Platelet Count 114 k/uL (150-450); RDW 12.8 % (11.5-15.5); WBC 21.9 k/uL (3.8-10.6)
[2018-02-01 06:49] LABS: Calcium 8.4 mg/dL (8.4-10.2); Magnesium 1.7 mg/dL (1.6-2.3); Potassium 4.3 mmol/L (3.5-5.1)
[2018-02-01 07:34] LABS: Glucose,Whole Blood 96 mg/dL (75-99)
[2018-02-01] MEDS: MAGNESIUM SULFATE-D5W PMX 1 GM in DEXTROSE/WATER 1 100ML.BAG IVPB SCH ×2 (08:08→11:28)
[2018-02-01] MEDS: TAMSULOSIN 0.4 MG CAP.ER.24H PO SCH (08:09)
[2018-02-01] MEDS: DOCUSATE 100 MG CAP PO SCH ×2 (08:09→20:10)
[2018-02-01] MEDS: METOPROLOL TARTRATE 12.5 MG TAB PO SCH (08:09)
--- NOTE | 2018-02-01 08:42 | P.CNPUL ---
History of Present Illness Consult date: 02/01/18 Reason for consult: other Chief complaint: Urosepsis History of present illness: This is a 77-year-old white male patient of Dr. Duff, who presented to the emergency department on 01/31/2018 for evaluation of fever, body aches, status, severe weakness. Patient had a recent laser procedure for enlarged prostate a week ago on Tuesday. He was seen by Dr. Law in follow-up, and had his urinary catheter removed. Patient has then developed some urinary retention. Patient has been treated for significant urinary tract infections. He was on a course of oral antibiotics at the time of his presentation. Patient was febrile with a temp of 103.3F. He was complaining of back pain, and some minimal abdominal discomfort. Patient was tachycardic, with a heart rate at 120 BPM. Patient was fluid resuscitated with 2 L of IV fluids, never did require vasopressor support. He was started on Rocephin initially in the emergency department, however he was then switched to Unasyn, and then to Zosyn on which he currently remains. Urinary catheter was placed for urinary retention. Initial blood work did not show any leukocytosis, WBC was 6.5, hemoglobin is 14, renal profile and electrolytes were essentially unremarkable. Urinalysis showed moderate blood, large leukocyte esterase, greater than 180 2. blood cells, and many bacteria. Urine and blood cultures have been collected and sent, and preliminary blood cultures were positive for gram- negative bacilli. Final culture is pending. Chest x-ray was negative. Today' s blood work was reviewed, there has been acute elevation of white count at 21.9 , electrolytes were within normal limits, B1 is 25, creatinine is 1.08. Patient is afebrile this morning, he is awake and alert, oriented 3, in no acute distress, denies any shortness of breath or chest pain. Denies any other discomfort, he sitting up in bed eating breakfast. His IV fluids is 0.9 normal saline at a rate of 120 ML per hour. He is currently on 2 L per nasal cannula with a pulse ox of 98%. Hemodynamically stable. Review of Systems All systems: negative Constitutional: Denies chills, Denies fever Eyes: denies blurred vision, denies pain Ears, nose, mouth and throat: Denies headache, Denies sore throat Cardiovascular: Denies chest pain, Denies shortness of breath Respiratory: Denies cough Gastrointestinal: Denies abdominal pain, Denies diarrhea, Denies nausea, Denies vomiting Musculoskeletal: Denies myalgias Integumentary: Denies pruritus, Denies rash Neurological: Denies numbness, Denies weakness Psychiatric: Denies anxiety, Denies depression Endocrine: Denies fatigue, Denies weight change Past Medical History Past Medical History: Atrial Fibrillation, Prostate Disorder, Sleep Apnea/CPAP/ BIPAP Additional Past Medical History / Comment(s): Current UTI, recent urinary retention/IDC which was discontinued 01/30/18, past BPH and had greenlight laser treatment at [place], TORI with bipap History of Any Multi-Drug Resistant Organisms: None Reported Past Surgical History: Cholecystectomy, Orthopedic Surgery, Prostate Surgery Additional Past Surgical History / Comment(s): 01/25/18 prostrate greenlight laser treatment at [place], right first digit top phlange removed, bilateral knee arthroscopy, colonoscopy-normal. Past Anesthesia/Blood Transfusion Reactions: No Reported Reaction Smoking Status: Former smoker - Past Family History Father Family Medical History: Dementia Mother Additional Family Medical History / Comment(s): Scoliosis. Medications and Allergies Home Medications Medication Instructions Recorded Confirmed Type Fish Oil/Dha/Epa [Fish Oil 1,200 1 cap PO DAILY 12/06/17 01/31/18 History mg Fish Oil] Metoprolol Tartrate [Lopressor] 12.5 mg PO DAILY 12/06/17 01/31/18 History Tamsulosin [Flomax] 0.4 mg PO DAILY 12/06/17 01/31/18 History Warfarin [Coumadin] 5 mg PO SUTUTHFR 12/06/17 01/31/18 History Glucosam/Tom-Msm1/C/Caleb/Bosw 1 tab PO DAILY 12/22/17 01/31/18 History [Glucosamine-Chondroitin Tablet] Warfarin [Coumadin] 7.5 mg PO MOWESA 01/31/18 01/31/18 History Allergies Allergy/AdvReac Type Severity Reaction Status Date / Time terbinafine [From Lamisil] Allergy Rash/Hives Verified 01/31/18 10:23 sulfamethoxazole AdvReac Unknown Verified 01/31/18 10:23 [From Bactrim] trimethoprim [From Bactrim] AdvReac Unknown Verified 01/31/18 10:23 Physical Exam Vitals: Vital Signs Temp Pulse Resp BP Pulse Ox 02/01/18 08:00 97.7 F 89 14 121/60 98 02/01/18 07:00 73 24 99/65 97 02/01/18 06:00 88 26 H 114/77 97 02/01/18 05:00 82 12 92/54 96 02/01/18 04:00 97.6 F 83 26 H 106/66 98 02/01/18 03:00 86 16 97/61 96 02/01/18 02:00 66 23 99/55 96 02/01/18 01:00 70 22 94/59 96 02/01/18 00:00 98 F 68 25 H 90/55 96 01/31/18 23:00 68 16 98/66 97 01/31/18 22:00 66 27 H 95/63 96 01/31/18 21:00 97.7 F 80 16 94/63 98 01/31/18 20:00 75 28 H 102/66 95 01/31/18 19:00 85 25 H 100/63 96 01/31/18 18:00 87 19 96/67 96 01/31/18 17:30 92 24 92/63 98 01/31/18 17:00 108 H 19 99/70 97 01/31/18 16:44 78 18 96/52 98 01/31/18 16:41 87 27 H 01/31/18 16:00 98.4 F 91 16 99/62 98 01/31/18 15:30 103 H 18 89/59 97 01/31/18 15:00 98 16 93/60 97 01/31/18 14:30 106 H 18 85/52 96 01/31/18 14:00 96 18 86/53 96 01/31/18 13:45 89 18 92/67 97 01/31/18 13:32 98.2 F 89 18 87/55 96 01/31/18 13:30 102 H 18 88/51 97 01/31/18 13:00 105 H 18 110/66 96 01/31/18 12:55 18 01/31/18 12:53 105 H 5 L 110/66 01/31/18 12:52 108 H 26 H 110/66 01/31/18 12:51 103 H 9 L 110/66 01/31/18 12:50 112 H 12 110/66 01/31/18 12:49 110/66 01/31/18 12:48 110/66 01/31/18 12:47 110/66 01/31/18 12:46 110/66 01/31/18 12:45 97/72 01/31/18 12:44 97/72 01/31/18 12:43 97/72 01/31/18 12:42 97/72 01/31/18 12:41 97/72 01/31/18 12:40 97/72 01/31/18 12:39 105 H 34 H 97/72 01/31/18 12:38 120 H 23 97/72 01/31/18 12:37 110 H 34 H 97/72 01/31/18 12:36 107 H 20 96/62 01/31/18 12:35 100 22 96/62 01/31/18 12:34 89 14 96/62 01/31/18 12:33 114 H 5 L 96/62 01/31/18 12:32 93 7 L 96/62 01/31/18 12:31 15 92/59 01/31/18 12:30 107 H 21 92/59 01/31/18 12:00 106 H 12 84/60 95 01/31/18 11:52 101.2 F H 01/31/18 11:45 105 H 18 96/50 94 L 01/31/18 11:25 84/54 01/31/18 11:15 86 18 97/51 95 01/31/18 11:00 106 H 18 105/68 96 01/31/18 10:30 102.4 F H 85 18 121/74 98 01/31/18 10:00 97 18 124/54 97 01/31/18 09:50 103.3 F H 01/31/18 09:40 18 124/54 95 01/31/18 09:09 102.7 F H 118 H 20 138/79 95 Intake and Output 01/31/18 02/01/18 02/01/18 22:59 06:59 14:59 Intake Total 920 960 640 Output Total 750 500 325 Balance 170 460 315 Intake: IV 720 960 240 Sodium Chloride 0.9% 1, 720 960 240 000 ml @ 120 mls/hr IV . Q8H20M [facility] Rx#:[id number] Oral 200 400 Output: Urine 750 500 325 Other: Voiding Method Indwelling Catheter Indwelling Catheter Weight 120.3 kg 118.5 kg GENERAL EXAM: Alert, pleasant 77-year-old white male comfortable in no apparent distress. HEAD: Normocephalic/atraumatic. EYES: Normal reaction of pupils, equal size. Conjunctiva pink, sclera white. NOSE: Clear with pink turbinates. THROAT: No erythema or exudates. NECK: No masses, no JVD, no thyroid enlargement, no adenopathy. CHEST: No chest wall deformity. Symmetrical expansion. LUNGS: Equal air entry with no crackles, wheeze, rhonchi or dullness. CVS: Regular rate and rhythm, normal S1 and S2, no gallops, no murmurs, no rubs ABDOMEN: Soft, nontender. No hepatosplenomegaly, normal bowel sounds, no guarding or rigidity. EXTREMITIES: No clubbing, no edema, no cyanosis, 2+ pulses and upper and lower extremities. MUSCULOSKELETAL: Muscle strength and tone normal. SPINE: No scoliosis or deformity SKIN: No rashes CENTRAL NERVOUS SYSTEM: Alert and oriented -3. No focal deficits, tone is normal in all 4 extremities. PSYCHIATRIC: Alert and oriented -3. Appropriate affect. Intact judgment and insight. Results - Laboratory Findings CBC and BMP: 02/01/18 06:13 02/01/18 06:13 PT/INR, D-dimer PT 12.4 sec (9.0-12.0) H 01/31/18 09:45 INR 1.3 (<1.2) H 01/31/18 09:45 Abnormal lab findings: Abnormal Labs 01/31/18 01/31/18 01/31/18 09:45 09:45 09:45 WBC RBC Hgb Hct Plt Count Neutrophils # Lymphocytes # (Manual) 0.33 L PT INR Sodium 136 L BUN Glucose 124 H POC Glucose (mg/dL) Total Bilirubin 1.5 H Total Creatine Kinase 35 L Urine Protein Urine Blood Ur Leukocyte Esterase Urine RBC Urine WBC Urine Bacteria Urine Mucus 01/31/18 01/31/18 01/31/18 09:45 13:04 16:43 WBC RBC Hgb Hct Plt Count Neutrophils # Lymphocytes # (Manual) PT 12.4 H INR 1.3 H Sodium BUN Glucose POC Glucose (mg/dL) 125 H Total Bilirubin Total Creatine Kinase Urine Protein 1+ H Urine Blood Moderate H Ur Leukocyte Esterase Large H Urine RBC 60 H Urine WBC >182 H Urine Bacteria Many H Urine Mucus Rare H 02/01/18 02/01/18 06:13 06:13 WBC 21.9 H RBC 3.70 L Hgb 11.8 L Hct 35.4 L Plt Count 114 L Neutrophils # 19.5 H Lymphocytes # (Manual) PT INR Sodium BUN 25 H Glucose 104 H POC Glucose (mg/dL) Total Bilirubin Total Creatine Kinase Urine Protein Urine Blood Ur Leukocyte Esterase Urine RBC Urine WBC Urine Bacteria Urine Mucus - Diagnostic Findings Chest x-ray: report reviewed, image reviewed Additional studies: EKG reviewed Assessment and Plan Plan: Assessment: #1. Acute sepsis, septic shock, related to urinary tract infection #2. Fever, leukocytosis, altered mental status related to the above #3. Recent laser procedure for enlarged prostate #4. Urinary retention after removal of Wood catheter #5. History of atrial fibrillation on Coumadin #6. Sleep apnea on CPAP therapy #7. Former smoker #8. Daily alcohol use Plan: Continue current antibiotic coverage, will await the final results of the cultures. Patient is hemodynamically stable, his mentation is back to baseline , is awake and alert, oriented 3. No acute distress, no difficulty breathing or chest pain. Continue with IV fluids. Patient can move out of the intensive care unit to general medical floor. I performed a history & physical examination of the patient and discussed their management with my nurse practitioner, Leia Spence. I reviewed the nurse practitioner's note and agree with the documented findings and plan of care. Lung sounds are clear. The findings and the impression was discussed with the patient. I attest to the documentation by the nurse practitioner. Time with Patient: Greater than 30
[2018-02-01] MEDS ORDERED: NON-FORMULARY DRUG (Fish Oil/Dha/Epa [Fish Oil 1,200 Mg Fish Oil] 1 CAP) PO SCH (09:00)
[2018-02-01] MEDS ORDERED: NON-FORMULARY DRUG (Glucosam/Chon-Msm1/C/Mang/Bosw [Glucosamine-Chondroitin Tablet] 1 TAB) PO SCH (09:00)
--- NOTE | 2018-02-01 14:47 | P.HPIM ---
History of Present Illness H&P Date: 02/01/18 Chief Complaint: Fever, mental status changes, urinary retention This is a 77-year-old male patient of Dr. Duff with past medical history of chronic atrial fibrillation on Coumadin, obstructive sleep apnea with CPAP, benign prostatic hypertrophy with chronic urinary retention. He underwent greenlight laser treatment at [facility] on January [address] Lewis and follows with Dr. Gandhi. He saw Dr. Cabrales on Tuesday in his Wood catheter was removed. There was some blood which they thought it was around the urethra and the tube but not from the bladder. Patient was to return to the office at 3 PM if he was not able to urinate. Patient up having some incontinence and voided throughout the night but by 6 a.m. he was very confused with fever and chills along with body aches, weakness and back pain. He does complain of abdominal bloating and uncomfortable feeling across the lower abdomen since the procedure was done. Activity makes his pain worse. He denies having any blood or black stools. He denies any lower extremity edema. He came into [facility] emergency center Temperature was 103.3 with tachycardia. His blood pressure eventually but dropped and he was given 2 L of IV fluid along with Tylenol and Motrin. He has not required vasopressors. Wood catheter was placed with return of 900 mL. Patient was given dose of ceftriaxone followed by Unasyn. Urinalysis was positive for urinary tract infection. Patient was admitted into the intensive care unit. Dr. ramos was placed on for intensive care management. Dr. Gandhi has evaluated the patient with recommendations to maintain Wood catheter until follow-up in the office. Patient has been hemodynamically stable and will be transferred to selective care today. Blood culture is showing gram-negative bacilli and consult with infectious disease has been added. Repeat blood cultures ordered. Patient is maintained on Zosyn. Review of Systems All systems: negative Constitutional: Reports chills, Reports fatigue, Reports fever, Reports lethargy , Reports malaise, Reports poor appetite, Reports sweats, Reports weakness Eyes: denies blurred vision, denies pain Ears, nose, mouth and throat: Denies headache, Denies sore throat, Denies vertigo Cardiovascular: Denies chest pain, Denies decreased exercise tolerance, Denies dyspnea on exertion, Denies edema, Denies leg edema, Denies shortness of breath , Denies syncope Respiratory: Denies cough, Denies cough with sputum, Denies dyspnea, Denies excessive sputum, Denies hemoptysis, Denies home oxygen, Denies wheezing Gastrointestinal: Reports abdominal pain, Denies constipation, Denies diarrhea, Denies melena, Denies nausea, Denies vomiting Genitourinary: Reports urinary retention, Denies dysuria Musculoskeletal: Reports muscle weakness, Denies frequent falls, Denies myalgias Integumentary: Denies pruritus, Denies rash, Denies wounds Neurological: Reports change in mentation, Reports confusion, Denies numbness, Denies weakness Psychiatric: Denies anxiety, Denies depression Endocrine: Denies fatigue, Denies weight change Past Medical History Past Medical History: Atrial Fibrillation, Prostate Disorder, Sleep Apnea/CPAP/ BIPAP Additional Past Medical History / Comment(s): Current UTI, recent urinary retention/IDC which was discontinued 01/30/18, past BPH and had greenlight laser treatment at [facility], TORI with bipap History of Any Multi-Drug Resistant Organisms: None Reported Past Surgical History: Cholecystectomy, Orthopedic Surgery, Prostate Surgery Additional Past Surgical History / Comment(s): 01/25/18 prostrate greenlight laser treatment at [facility], right first digit top phlange removed, bilateral knee arthroscopy, colonoscopy-normal. Past Anesthesia/Blood Transfusion Reactions: No Reported Reaction Smoking Status: Former smoker Additional Past Alcohol Use History / Comment(s): Patient was a smoker one and half packs per day for 15-20 years and quit 40 years ago. He drinks a couple beers per day during the summer. He lives at home with his . - Past Family History Father Family Medical History: Dementia Additional Family Medical History / Comment(s): Father at age 72 from heart failure with history of Alzheimer dementia. Mother Additional Family Medical History / Comment(s): Scoliosis. Mother at age 83 from heart failure. Brother(s) Additional Family Medical History / Comment(s): Patient has 3 brothers. One with history of prostate cancer, 1 with benign prostatic hypertrophy, and one with unknown medical problems. Sister(s) Additional Family Medical History / Comment(s): Patient has one sister that at age 9 from some type of congenital brain disorder, unknown type. Patient has 2 daughters and 1 son with no major medical problems. Medications and Allergies Home Medications Medication Instructions Recorded Confirmed Type Fish Oil/Dha/Epa [Fish Oil 1,200 1 cap PO DAILY 12/06/17 01/31/18 History mg Fish Oil] Metoprolol Tartrate [Lopressor] 12.5 mg PO DAILY 12/06/17 01/31/18 History Tamsulosin [Flomax] 0.4 mg PO DAILY 12/06/17 01/31/18 History Warfarin [Coumadin] 5 mg PO SUTUTHFR 12/06/17 01/31/18 History Glucosam/Tom-Msm1/C/Caleb/Bosw 1 tab PO DAILY 12/22/17 01/31/18 History [Glucosamine-Chondroitin Tablet] Warfarin [Coumadin] 7.5 mg PO MOWESA 01/31/18 01/31/18 History Allergies Allergy/AdvReac Type Severity Reaction Status Date / Time terbinafine [From Lamisil] Allergy Rash/Hives Verified 01/31/18 10:23 sulfamethoxazole AdvReac Unknown Verified 01/31/18 10:23 [From Bactrim] trimethoprim [From Bactrim] AdvReac Unknown Verified 01/31/18 10:23 Physical Exam Vitals: Vital Signs Temp Pulse Resp BP Pulse Ox 02/01/18 08:00 97.7 F 89 14 121/60 98 02/01/18 07:00 73 24 99/65 97 02/01/18 06:00 88 26 H 114/77 97 02/01/18 05:00 82 12 92/54 96 02/01/18 04:00 97.6 F 83 26 H 106/66 98 02/01/18 03:00 86 16 97/61 96 02/01/18 02:00 66 23 99/55 96 02/01/18 01:00 70 22 94/59 96 02/01/18 00:00 98 F 68 25 H 90/55 96 01/31/18 23:00 68 16 98/66 97 01/31/18 22:00 66 27 H 95/63 96 01/31/18 21:00 97.7 F 80 16 94/63 98 01/31/18 20:00 75 28 H 102/66 95 01/31/18 19:00 85 25 H 100/63 96 01/31/18 18:00 87 19 96/67 96 1618 17:30 92 24 92/63 98 1618 17:00 108 H 19 99/70 97 1618 16:44 78 18 96/52 98 1618 16:41 87 27 H 16 16:00 98.4 F 91 16 99/62 98 01/31/18 15:30 103 H 18 89/59 97 01/31/18 15:00 98 16 93/60 97 01/31/18 14:30 106 H 18 85/52 96 1618 14:00 96 18 86/53 96 01/31/18 13:45 89 18 92/67 97 01/31/18 13:32 98.2 F 89 18 87/55 96 01/31/18 13:30 102 H 18 88/51 97 01/31/18 13:00 105 H 18 110/66 96 01/31/18 12:55 18 01/31/18 12:53 105 H 5 L 110/66 01/31/18 12:52 108 H 26 H 110/66 18 12:51 103 H 9 L 110/66 01/31/18 12:50 112 H 12 110/66 01/31/18 12:49 110/66 01/31/18 12:48 110/66 18 12:47 110/66 01/31/18 12:46 110/66 01/31/18 12:45 97/72 18 12:44 97/72 01/31/18 12:43 97/72 18 12:42 97/72 18 12:41 97/72 18 12:40 97/72 01/31/18 12:39 105 H 34 H 97/72 18 12:38 120 H 23 97/72 18 12:37 110 H 34 H 97/72 01/31/18 12:36 107 H 20 96/62 18 12:35 100 22 96/62 01/31/18 12:34 89 14 96/62 01/31/ 12:33 114 H 5 L 96/62 18 12:32 93 7 L 96/62 18 12:31 15 92/59 01/31/18 12:30 107 H 21 92/59 01/31/18 12:00 106 H 12 84/60 95 01/31/18 11:52 101.2 F H 01/31/18 11:45 105 H 18 96/50 94 L 01/31/18 11:25 84/54 01/31/18 11:15 86 18 97/51 95 01/31/18 11:00 106 H 18 105/68 96 Intake and Output 01/31/18 02/01/18 02/01/18 22:59 06:59 14:59 Intake Total 920 960 877 Output Total 750 500 325 Balance 170 460 552 Intake: IV 720 960 240 Sodium Chloride 0.9% 1, 720 960 240 000 ml @ 120 mls/hr IV . Q8H20M [facility] Rx#:[id number] Oral 200 637 Output: Urine 750 500 325 Other: Voiding Method Indwelling Catheter Indwelling Catheter Weight 120.3 kg 118.5 kg Gen: This is a obese 72-year-old male. He is sitting in the ICU bed and appears to be comfortable and in no acute distress. HEENT: Head is atraumatic, normocephalic. Pupils equal, round. Sclerae is anicteric. Conjunctiva pink. NECK: Supple. No JVD. No lymphadenopathy. No thyromegaly. LUNGS: Clear to auscultation. No wheezes or rhonchi. No accessory muscle usage. No intercostal retractions. HEART: Regular rate and rhythm. No murmur. ABDOMEN: Soft. Bowel sounds are present. No masses. No tenderness. Wood catheter draining clear albino urine. EXTREMITIES: No pedal edema. No calf tenderness. Dorsalis pedis is +2 bilaterally. NEUROLOGICAL: Patient is awake, alert and oriented x3. Cranial nerves 2 through 12 are grossly intact. Results CBC & Chem 7: 02/01/18 06:13 02/01/18 06:13 Labs: Abnormal Lab Results - Last 24 Hours (Table) 01/31/18 01/31/18 01/31/18 Range/Units 09:45 09:45 13:04 WBC (3.8-10.6) k/uL RBC (4.30-5.90) m/uL Hgb (13.0-17.5) gm/dL Hct (39.0-53.0) % Plt Count (150-450) k/uL Neutrophils # (1.3-7.7) k/uL Lymphocytes # (Manual) 0.33 L (1.0-4.8) k/uL BUN (9-20) mg/dL Glucose (74-99) mg/dL POC Glucose (mg/dL) (75-99) mg/dL Total Creatine Kinase 35 L (55-170) U/L Urine Protein 1+ H (Negative) Urine Blood Moderate H (Negative) Ur Leukocyte Esterase Large H (Negative) Urine RBC 60 H (0-5) /hpf Urine WBC >182 H (0-5) /hpf Urine Bacteria Many H (None) /hpf Urine Mucus Rare H (None) /hpf 01/31/18 02/01/18 02/01/18 Range/Units 16:43 06:13 06:13 WBC 21.9 H (3.8-10.6) k/uL RBC 3.70 L (4.30-5.90) m/uL Hgb 11.8 L (13.0-17.5) gm/dL Hct 35.4 L (39.0-53.0) % Plt Count 114 L (150-450) k/uL Neutrophils # 19.5 H (1.3-7.7) k/uL Lymphocytes # (Manual) (1.0-4.8) k/uL BUN 25 H (9-20) mg/dL Glucose 104 H (74-99) mg/dL POC Glucose (mg/dL) 125 H (75-99) mg/dL Total Creatine Kinase (55-170) U/L Urine Protein (Negative) Urine Blood (Negative) Ur Leukocyte Esterase (Negative) Urine RBC (0-5) /hpf Urine WBC (0-5) /hpf Urine Bacteria (None) /hpf Urine Mucus (None) /hpf Microbiology - Last 24 Hours (Table) 01/31/18 09:45 Blood Culture Gram Stain - Preliminary Blood Blood Culture - Preliminary Gram Neg Bacilli 01/31/18 13:04 Urine Culture - Preliminary Urine,Catheterized 01/31/18 09:45 Blood Culture - Preliminary Blood Thrombosis Risk Factor Assmnt - DVT/VTE Prophylaxis DVT/VTE Prophylaxis: Pharmacologic Prophylaxis ordered - Choose All That Apply Any of the Below Risk Factors Present?: Yes Each Factor Represents 1 point: Obesity (BMI >25), Sepsis (< 1month) Other Risk Factors: Yes Each Risk Factor Represents 3 Points: Age 75 years or older Other congenital or acquired thrombophilia - If yes, enter type in comment: No Thrombosis Risk Factor Assessment Total Risk Factor Score: 5 Thrombosis Risk Factor Assessment Level: High Risk Assessment and Plan Plan: 1. Sepsis, septic shock secondary to urinary tract infection and recent surgical manipulation and Wood catheter status post fluid resuscitation with 2 L. Continue Zosyn. 2. Acute metabolic encephalopathy secondary to sepsis, resolved. 3. Benign prostatic hypertrophy status post greenlight procedure. Maintain Wood catheter until follow-up with Dr. Cabrales. 4. Chronic atrial fibrillation. Continue Coumadin and Lopressor, monitor INR daily. 5. Obstructive sleep apnea. Patient's to bring in CPAP. 6. Daily alcohol use. Monitor for DTs. 7. Remote history of tobacco use, stable. 8. DVT prophylaxis. Coumadin. 9. GI prophylaxis. Pepcid. Patient will be admitted to the hospital for a minimum of 2 night stay. Discharge plan: Return home Impression and plan of care have been directed as dictated by the signing physician. Kortney Alvarez nurse practitioner acting as scribe for signing physician.
[2018-02-01] MEDS ORDERED: WARFARIN 10 MG TAB PO ONE (18:00)
[2018-02-01] MEDS ORDERED: WARFARIN 7.5 MG TAB PO SCH (18:00)
[2018-02-01] MEDS: ACETAMINOPHEN TAB 325 MG TAB PO PRN (20:30)
--- NOTE | 2018-02-02 00:11 | CONS ---
CONSULTATION 02/01/2018 REASON FOR CONSULTATION: UTI with sepsis. HISTORY OF PRESENT ILLNESS: The patient is a 77-year-old male with a past medical history significant for benign prostatic hypertrophy. The patient recently underwent GreenLight laser treatment hospital on January 25. The patient did follow up with on Tuesday when his Wood catheter was removed. The patient did mention that he was able to urinate a few hours later, hence was decided to keep the catheter out. The patient was supposed to follow up with the next day for recheck. However, the patient started getting weak, lethargic, has developed some mental status changes and did have high-grade fever with rigors and chills. The patient did have difficulty in urination with some burning, but no hematuria. He felt nauseated, but no vomiting. Did have some lower abdominal pain, mostly dull aching and no diarrhea. With these symptoms, the patient presented to the [facility] ER. On arrival to the ER, the patient did have fever of 102 to 103 degrees Fahrenheit. The patient did have a normal white count and subsequent white count up to 21.9. The patient's UA was positive with moderate blood, large leukocyte esterase and more than 1 to 2 WBC. The patient was hypertensive has received multiple fluid boluses. He was started on broad spectrum antibiotics and admitted to the hospital. Infectious Disease was consulted for further recommendation of antibiotic therapy. Subsequently this morning the patient blood cultures came back positive with gram-negative bacilli. REVIEW OF SYSTEMS: CONSTITUTIONAL: Positive for weakness along with a fever. EYES: No complaint. ENT: No complaint. RESPIRATORY: No complaint. CARDIOVASCULAR: No complaint. GENITOURINARY: As per HPI. GASTROINTESTINAL: Per HPI. MUSCULOSKELETAL: No complaint. INTEGUMENTARY: No complaint. PSYCHOLOGICAL: No complaint. ENDOCRINE: No complaint. NEUROLOGIC: No complaint. PAST MEDICAL HISTORY: Atrial fibrillation, benign prostatic hypertrophy, sleep apnea, recurrent UTI, urinary retention, obstructive sleep apnea. PAST SURGICAL HISTORY: to the prostate, bilateral knee arthroscopy and colonoscopy. SOCIAL HISTORY: Remote history of smoking, quit 40 years ago. No drinking or drug use. FAMILY HISTORY: Father history of dementia and at age from heart failure. Her mother history of scoliosis, at age of 83 from heart failure. ALLERGIES: SULFAMETHOXAZOLE. MEDICATIONS: Medications include the patient is currently on Tylenol, [place], Colace, Lopressor, Narcan, Zosyn, Flomax, and Coumadin. EXAMINATION: Blood pressure is 114/62 with a pulse of 83, temperature 98.5. He is 95% on room air. General description is an elderly male lying in bed in no distress. No tachypnea or accessory muscle of respiration use. HEENT: Shows no pallor or scleral icterus. Oral mucous membranes is dry. No pharyngeal erythema or thrush. NECK: Trachea central, no thyromegaly. LUNGS: Unlabored breathing, clear to auscultation anteriorly. No wheeze or crackle. HEART: S1, S2. Regular rate and rhythm. ABDOMEN: Soft, no tenderness, no rigidity. EXTREMITIES: Extremities with no edema feet. SKIN EXAMINATION: No rash or masses palpable. NEUROLOGICAL: The patient is awake, alert, oriented. Mood and affect normal. LABS: Hemoglobin 11.8, platelet count is 114, white count of 21.9, BUN of 25, creatinine 1.08. Electrolytes has been normal. Urine has been positive. Blood cultures with gram-negative bacilli. DIAGNOSTIC IMPRESSION AND PLAN: Patient admitted to the hospital with significant fever, rigors and chills. The patient did have hypertension. Did have a fever of 102 degrees Fahrenheit, elevated white count. The patient did have recent laser surgery to his prostate and Wood catheter was subsequently discontinued and the patient likely source of his UTI and bacteremia is the urinary source in the patient with recent manipulation of the urinary tract. Will need to cover for the resistant gram-negative pathogen such as Pseudomonas aeruginosa to underlying pathogen. PLAN: 1. Zosyn 3.375 g q.8 hours. 2. Increase IV fluid. 3. Depending upon his clinical response, as well as cultures we will adjust the medications further if needed. Thank you for this consultation. We will follow this patient along with you. MMODL / IJN: [id number] /
[2018-02-02] MEDS: PIPERACILLIN-TAZOBACTAM 3.375 GM in DEXTROSE/WATER 1 50ML.BAG IVPB SCH ×2 (03:25→11:27)
[2018-02-02 05:50] LABS: Basophils # (A) 0.1 k/uL (0-0.2); Basophils % (A) 0 %; Eosinophils # (A) 0.7 k/uL (0-0.7); Eosinophils % (A) 4 %; HCT 36.2 % (39.0-53.0); HGB 11.8 gm/dL (13.0-17.5); Lymphocytes # (A) 0.9 k/uL (1.0-4.8); Lymphocytes % (A) 5 %; MCH 31.3 pg (25.0-35.0); MCHC 32.7 g/dL (31.0-37.0); MCV 95.6 fL (80.0-100.0); Mean Platelet Volume 7.4; Monocytes # (A) 0.5 k/uL (0-1.0); Monocytes % (A) 3 %; Neutrophils # (A) 15.7 k/uL (1.3-7.7); Neutrophils % (A) 87 %; Platelet Count 121 k/uL (150-450); RBC 3.79 m/uL (4.30-5.90); RDW 12.9 % (11.5-15.5); WBC 17.9 k/uL (3.8-10.6)
[2018-02-02 05:56] LABS: INR 1.3 (<1.2); Prothrombin Time 12.3 sec (9.0-12.0)
[2018-02-02 06:21] LABS: Anion Gap 7 mmol/L; Blood Urea Nitrogen 21 mg/dL (9-20); Calcium 8.7 mg/dL (8.4-10.2); Carbon Dioxide 23 mmol/L (22-30); Chloride 109 mmol/L (98-107); Glucose 89 mg/dL (74-99); Magnesium 2.3 mg/dL (1.6-2.3); Potassium 4.2 mmol/L (3.5-5.1); Sodium 139 mmol/L (137-145)
[2018-02-02] MEDS: DOCUSATE 100 MG CAP PO SCH ×2 (08:10→20:20)
[2018-02-02] MEDS: ACETAMINOPHEN TAB 325 MG TAB PO PRN (08:10)
[2018-02-02] MEDS: METOPROLOL TARTRATE 12.5 MG TAB PO SCH (08:10)
[2018-02-02] MEDS: TAMSULOSIN 0.4 MG CAP.ER.24H PO SCH (08:10)
[2018-02-02] MEDS: SODIUM CHLORIDE 0.9% 1,000 ML IV SCH (08:11)
--- NOTE | 2018-02-02 09:30 | P.PN ---
Subjective Progress Note Date: 02/02/18 Principal diagnosis: Acute sepsis, septic shock, related to urinary tract infection This is a 77-year-old white male patient of Dr. Duff, who presented to the emergency department on 01/31/2018 for evaluation of fever, body aches, status, severe weakness. Patient had a recent laser procedure for enlarged prostate a week ago on Tuesday. He was seen by Dr. Law in follow-up, and had his urinary catheter removed. Patient has then developed some urinary retention. Patient has been treated for significant urinary tract infections. He was on a course of oral antibiotics at the time of his presentation. Patient was febrile with a temp of 103.3F. He was complaining of back pain, and some minimal abdominal discomfort. Patient was tachycardic, with a heart rate at 120 BPM. Patient was fluid resuscitated with 2 L of IV fluids, never did require vasopressor support. He was started on Rocephin initially in the emergency department, however he was then switched to Unasyn, and then to Zosyn on which he currently remains. Urinary catheter was placed for urinary retention. Initial blood work did not show any leukocytosis, WBC was 6.5, hemoglobin is 14, renal profile and electrolytes were essentially unremarkable. Urinalysis showed moderate blood, large leukocyte esterase, greater than 180 2. blood cells, and many bacteria. Urine and blood cultures have been collected and sent, and preliminary blood cultures were positive for gram- negative bacilli. Final culture is pending. Chest x-ray was negative. Today' s blood work was reviewed, there has been acute elevation of white count at 21.9 , electrolytes were within normal limits, B1 is 25, creatinine is 1.08. Patient is afebrile this morning, he is awake and alert, oriented 3, in no acute distress, denies any shortness of breath or chest pain. Denies any other discomfort, he sitting up in bed eating breakfast. His IV fluids is 0.9 normal saline at a rate of 120 ML per hour. He is currently on 2 L per nasal cannula with a pulse ox of 98%. Hemodynamically stable. On 02/02/2018 patient seen in follow-up in intensive care unit. He has been awaiting a bed on general medical floor. This morning he is awake and alert, he is complaining of a mild headache, his blood pressure is 150/99, his home dose Lopressor has been restarted, metoprolol 12.5 mg daily. Denies any shortness of breath, denies any chest pain, still has a 0.9 normal seen infusing at a rate of 120 ML per hour, he is tolerating oral diet. He has been nonoliguric. Afebrile, his blood cultures and urine culture was positive for gram-negative bacilli, final culture is pending. Patient is covered with Zosyn. Today's blood work has been reviewed, white count is trending down, down to 17.9, hemoglobin is 11.8, sodium is 139, potassium is 4.2, chloride is 109, CO2 is 23, BUN is 21, creatinine 0.87. Clinically patient is hemodynamically stable, awake alert, no altered mentation. Objective - Vital Signs Vital signs: Vital Signs Temp 98.2 F 02/02/18 08:00 Pulse 81 02/02/18 08:00 Resp 11 L 02/02/18 08:00 BP 150/99 02/02/18 08:00 Pulse Ox 96 02/02/18 08:00 Intake & Output 02/01/18 02/02/18 02/02/18 18:59 06:59 18:59 Intake Total 2087 1080 240 Output Total 1300 820 260 Balance 787 260 -20 Weight 118.5 kg 118.5 kg Intake: IV 1200 1080 240 Sodium Chloride 0.9% 1, 1200 1080 240 000 ml @ 120 mls/hr IV . Q8H20M [facility] Rx#:[id number] Intake, IV Titration 250 Amount Magnesium Sulfate-D5w Pmx 200 1 gm In Dextrose/Water 1 100ml.bag @ 100 mls/hr IVPB Q1H [facility] Rx#: [id number] Piperacillin-Tazobactam 3 50 .375 gm In Dextrose/Water 1 50ml.bag @ 12.5 mls/hr IVPB Q8H [facility] Rx#: [id number] Oral 637 Output: Urine 1300 820 260 Other: Voiding Method Indwelling Catheter Indwelling Catheter Indwelling Catheter # Bowel Movements 1 - Exam GENERAL EXAM: Alert, pleasant 77-year-old white male comfortable in no apparent distress. Complaining of a mild headache today HEAD: Normocephalic/atraumatic. EYES: Normal reaction of pupils, equal size. Conjunctiva pink, sclera white. NOSE: Clear with pink turbinates. THROAT: No erythema or exudates. NECK: No masses, no JVD, no thyroid enlargement, no adenopathy. CHEST: No chest wall deformity. Symmetrical expansion. LUNGS: Equal air entry with no crackles, wheeze, rhonchi or dullness. CVS: Regular rate and rhythm, normal S1 and S2, no gallops, no murmurs, no rubs ABDOMEN: Soft, nontender. No hepatosplenomegaly, normal bowel sounds, no guarding or rigidity. EXTREMITIES: No clubbing, no edema, no cyanosis, 2+ pulses and upper and lower extremities. MUSCULOSKELETAL: Muscle strength and tone normal. SPINE: No scoliosis or deformity SKIN: No rashes CENTRAL NERVOUS SYSTEM: Alert and oriented -3. No focal deficits, tone is normal in all 4 extremities. PSYCHIATRIC: Alert and oriented -3. Appropriate affect. Intact judgment and insight. - Labs CBC & Chem 7: 02/02/18 04:59 02/02/18 04:59 Labs: Abnormal Lab Results - Last 24 Hours (Table) 02/02/18 02/02/18 02/02/18 Range/Units 04:59 04:59 04:59 WBC 17.9 H (3.8-10.6) k/uL RBC 3.79 L (4.30-5.90) m/uL Hgb 11.8 L (13.0-17.5) gm/dL Hct 36.2 L (39.0-53.0) % Plt Count 121 L (150-450) k/uL Neutrophils # 15.7 H (1.3-7.7) k/uL Lymphocytes # 0.9 L (1.0-4.8) k/uL PT 12.3 H (9.0-12.0) sec INR 1.3 H (<1.2) Chloride 109 H (98-107) mmol/L BUN 21 H (9-20) mg/dL Microbiology - Last 24 Hours (Table) 01/31/18 13:04 Urine Culture - Preliminary Urine,Catheterized Gram Neg Bacilli 01/31/18 09:45 Blood Culture - Final Blood 01/31/18 09:45 Blood Culture Gram Stain - Preliminary Blood Blood Culture - Preliminary Gram Neg Bacilli Assessment and Plan Plan: Assessment: #1. Acute sepsis, septic shock, related to urinary tract infection #2. Fever, leukocytosis, altered mental status related to the above #3. Recent laser procedure for enlarged prostate #4. Urinary retention after removal of Wood catheter #5. History of atrial fibrillation on Coumadin #6. Sleep apnea on CPAP therapy #7. Former smoker #8. Daily alcohol use Plan: We will discontinue the IV fluids, patient is tolerating oral intake. He is becoming a bit hypertensive, his home dose Lopressor has been restarted. Denies any shortness of breath, or chest pain. Increase activity as tolerated. I performed a history & physical examination of the patient and discussed their management with my nurse practitioner, Leia Spence. I reviewed the nurse practitioner's note and agree with the documented findings and plan of care. Lung sounds are clear. The findings and the impression was discussed with I attest to the documentation by the nurse practitioner. Time with Patient: Less than 30
[2018-02-02] MEDS: IOPAMIDOL-300 CONTRAST 30 ML VIAL (ORAL USE) PO PRN ×2 (11:29→12:29)
--- NOTE | 2018-02-02 13:57 | P.PN ---
Subjective Progress Note Date: 02/02/18 This is a 77-year-old male patient of Dr. Duff with past medical history of chronic atrial fibrillation on Coumadin, obstructive sleep apnea with CPAP, benign prostatic hypertrophy with chronic urinary retention. He underwent greenlight laser treatment at [facility] on Tuesday, January [address] Lewis and follows with Dr. Gandhi. He saw Dr. Cabrales on Tuesday in his Olivier catheter was removed. There was some blood which they thought it was around the urethra and the tube but not from the bladder. Patient was to return to the office at 3 PM if he was not able to urinate. Patient up having some incontinence and voided throughout the night but by 6 a.m. he was very confused with fever and chills along with body aches, weakness and back pain. He does complain of abdominal bloating and uncomfortable feeling across the lower abdomen since the procedure was done. Activity makes his pain worse. He denies having any blood or black stools. He denies any lower extremity edema. He came into [facility] emergency center Temperature was 103.3 with tachycardia. His blood pressure eventually but dropped and he was given 2 L of IV fluid along with Tylenol and Motrin. He has not required vasopressors. Olivier catheter was placed with return of 900 mL. Patient was given dose of ceftriaxone followed by Unasyn. Urinalysis was positive for urinary tract infection. Patient was admitted into the intensive care unit. Dr. ramos was placed on for intensive care management. Dr. Gandhi has evaluated the patient with recommendations to maintain Olivier catheter until follow-up in the office. Patient has been hemodynamically stable and will be transferred to selective care today. Blood culture is showing gram-negative bacilli and consult with infectious disease has been added. Repeat blood cultures ordered. Patient is maintained on Zosyn. 02/02: Blood culture positive for ESBl E Coli. Repeat blood culture is status received. Urine culture is in progress. Antibiotics have been switched to meropenem by Dr. Gama. Patient states he is not feeling as good as yesterday. He states he did sleep better during the night. He complains of generalized weakness. He complains of a headache and his eyes hurt in the back. He is awaiting a bed on the [facility] floor. He does continue to have some abdominal pain which is now in the left lower quadrant. His last bowel movement was yesterday. He denies any known blood in his urine. He denies any flank pain. CAT scan of the abdomen and pelvis has been ordered. Patient does have chronic problems with intermittent constipation. INR is 1.3 and Coumadin 10 mg ordered for tonight, white count is down to 17.9. Patient has been afebrile. Patient is waiting for [facility] bed. Review Of Systems: Constitutional: No fever, no chills, no night sweats. + weakness, +fatigue. EENT: + headache. No blurred vision or double vision, no loss of vision. No loss of Hearing, no ringing in the ears, no dizziness. No nasal drainage or congestion. No epistaxis. No sore throat. Lungs: No shortness of breath, cough, no sputum production. No wheezing. Cardiovascular: No chest pain, no lower extremity edema. No lightheadedness or dizziness. No syncopal episodes. Abdominal: LLQ abdominal pain. No nausea, vomiting. No diarrhea. No constipation. No bloody or tarry stools. Genitourinary: + olivier. Musculoskeletal: + muscle weakness, no gait dysfunction, no frequent falls. No back pain. No neck pain. Integumentary: No wounds, no lesions. No rash or pruritus. No unusual bruising. No change in hair or nails. Objective - Vital Signs Vital signs: Vital Signs Temp 98.2 F 02/02/18 08:00 Pulse 81 02/02/18 08:00 Resp 11 L 02/02/18 08:00 BP 131/89 02/02/18 10:38 Pulse Ox 96 02/02/18 08:00 Intake & Output 02/01/18 02/02/18 02/02/18 18:59 06:59 18:59 Intake Total 2087 1080 255 Output Total 1300 820 610 Balance 787 260 -355 Weight 118.5 kg 118.5 kg Intake: IV 1200 1080 255 .9 kvo 15 Sodium Chloride 0.9% 1, 1200 1080 240 000 ml @ 120 mls/hr IV . Q8H20M [facility] Rx#:[id number] Intake, IV Titration 250 Amount Magnesium Sulfate-D5w Pmx 200 1 gm In Dextrose/Water 1 100ml.bag @ 100 mls/hr IVPB Q1H [facility] Rx#: [id number] Piperacillin-Tazobactam 3 50 .375 gm In Dextrose/Water 1 50ml.bag @ 12.5 mls/hr IVPB Q8H [facility] Rx#: [id number] Oral 637 Output: Urine 1300 820 610 Other: Voiding Method Indwelling Catheter Indwelling Catheter Indwelling Catheter # Bowel Movements 1 - Exam Gen: This is a obese 72-year-old male. He is sitting in the ICU bed and appears to be comfortable and in no acute distress. HEENT: Head is atraumatic, normocephalic. Pupils equal, round. Sclerae is anicteric. Conjunctiva pink. NECK: Supple. No JVD. No lymphadenopathy. No thyromegaly. LUNGS: Clear to auscultation. No wheezes or rhonchi. No accessory muscle usage. No intercostal retractions. HEART: Regular rate and rhythm. No murmur. ABDOMEN: Soft. Bowel sounds are present. No masses. No tenderness. Olivier catheter draining clear albino urine, unchanged. EXTREMITIES: No pedal edema. No calf tenderness. Dorsalis pedis is +2 bilaterally. NEUROLOGICAL: Patient is awake, alert and oriented x3. Cranial nerves 2 through 12 are grossly intact. - Labs CBC & Chem 7: 02/02/18 04:59 02/02/18 04:59 Labs: Abnormal Lab Results - Last 24 Hours (Table) 02/02/18 02/02/18 02/02/18 Range/Units 04:59 04:59 04:59 WBC 17.9 H (3.8-10.6) k/uL RBC 3.79 L (4.30-5.90) m/uL Hgb 11.8 L (13.0-17.5) gm/dL Hct 36.2 L (39.0-53.0) % Plt Count 121 L (150-450) k/uL Neutrophils # 15.7 H (1.3-7.7) k/uL Lymphocytes # 0.9 L (1.0-4.8) k/uL PT 12.3 H (9.0-12.0) sec INR 1.3 H (<1.2) Chloride 109 H (98-107) mmol/L BUN 21 H (9-20) mg/dL Microbiology - Last 24 Hours (Table) 01/31/18 09:45 Blood Culture Gram Stain - Final Blood Blood Culture - Final Escherichia coli 01/31/18 13:04 Urine Culture - Preliminary Urine,Catheterized Gram Neg Bacilli 01/31/18 09:45 Blood Culture - Final Blood Assessment and Plan Plan: 1. Sepsis, septic shock secondary to ESBL E. coli urinary tract infection and recent surgical manipulation and Olivier catheter status post fluid resuscitation with 2 L. Zosyn changed to meropenem. 2. Acute metabolic encephalopathy secondary to sepsis, resolved. 3. Benign prostatic hypertrophy status post greenlight procedure. Maintain Olivier catheter until follow-up with Dr. Cabrales. 4. Chronic atrial fibrillation. Continue Coumadin and Lopressor, monitor INR daily. Coumadin 10 mg ordered for tonight. 5. Obstructive sleep apnea. Patient's to bring in CPAP. 6. Daily alcohol use. Monitor for DTs. 7. Remote history of tobacco use, stable. 8. DVT prophylaxis. Coumadin. 9. GI prophylaxis. Pepcid. Discharge plan: Return home Impression and plan of care have been directed as dictated by the signing physician. Kortney Alvarez nurse practitioner acting as scribe for signing physician.
--- NOTE | 2018-02-02 14:51 | CT ---
EXAMINATION TYPE: CT abdomen pelvis w con DATE OF EXAM: 02/02/2018 COMPARISON: PET/CT dated 10/22/2017 HISTORY: Urosepsis CT DLP: 2531.30 mGycm Automated exposure control for dose reduction was used. TECHNIQUE: Helical acquisition of images was performed from the lung bases through the pelvis. CONTRAST: Performed with Oral Contrast and with IV Contrast, patient injected with 100 ml mL of Isovue 300. FINDINGS: LUNG BASES: There are trace bilateral pleural effusions and subsegmental bibasilar atelectasis. At le ast moderate coronary artery calcifications are partially visualized. Heart is mildly enlarged. There is also partial visualization of bilateral mild symmetric gynecomastia. LIVER/GB: The liver is hypoattenuated in comparison to the attenuation of the splenic parenchyma comp atible with mild hepatic steatosis. Gallbladder surgically absent. PANCREAS: No significant abnormality is seen. SPLEEN: No significant abnormality is seen. Small spondylosis present adjacent to the [place] spleen. ADRENALS: Adrenal glands are minimally thickened, left greater than right without focal measurable no dule. Finding is most likely related to adrenal gland hyperplasia. KIDNEYS: Kidneys enhance symmetrically. No perinephric fluid collection. No hydronephrosis. FREE AIR: No free air is visualized. REPRODUCTIVE ORGANS: Heterogenous prostate gland containing central zone calcifications. URINARY BLADDER: There is extensive inflammatory fat stranding surrounding the urinary bladder. Urin samira bladder circumferential wall thickening measures up to 1.4 cm. Air is seen within the urinary dago dder wall. The Franco catheter is placed caudally just above the prostatic portion of the urethra. Air at the urinary bladder orifice extends towards the and possibly into the urinary bladder wall. Small anterior air containing diverticulum is seen of the urinary bladder on axial image 87 and coronal im age 52. Abutting loops of small bowel are seen although no oral contrast is present extravasating to suggest fistula. PELVIC ADENOPATHY: No greater than 1 cm short axis lymph nodes are seen in the abdomen or pelvis. OSSEOUS STRUCTURES: Mild multilevel degenerative changes of the spine are seen. BOWEL: No dilated bowel is appreciated. OTHER: Abdominal aorta is of normal course and caliber with mild atherosclerosis. IMPRESSION: AIR IS SEEN WITHIN THE URINARY BLADDER, POSSIBLY EXTENDING INTO THE URINARY BLADDER WALL ANTERIORLY, WHICH COULD RELATE TO EMPHYSEMATOUS CYSTITIS OR MORE LIKELY SIMPLY DUE TO THE RECENT INSTRUMENTATION WITH FRANCO CATHETER PLACEMENT. FRANCO CATHETER IS ALSO NOTED TO BE LOW-LYING SITUATED JUST ABOVE THE P ROSTHETIC PORTION OF THE URETHRA. NO AIR IN THE RENAL COLLECTING SYSTEMS TO SUGGEST EMPHYSEMATOUS GILDARDO LITIS. NO PERINEPHRIC FLUID COLLECTION TO SUGGEST ABSCESS.
[2018-02-02] MEDS: MEROPENEM 1 GM in SODIUM CHLORIDE 0.9% 100 ML IVPB SCH (16:04)
[2018-02-02] MEDS ORDERED: WARFARIN 10 MG TAB PO ONE (18:00)
[2018-02-02 21:44] LABS: Glucose,Whole Blood 107 mg/dL (75-99)
--- NOTE | 2018-02-02 23:54 | PN ---
PROGRESS NOTE DATE OF SERVICE: 02/02/2018. REASON FOR FOLLOWUP: ESBL E coli bacteremia with sepsis. INTERVAL HISTORY: The patient is afebrile this morning. He seems to be breathing comfortably. However he is feeling weak and lethargic and no energy. He did have some lower abdominal pain. More of a dull, aching pain to the description and no radiation. No nausea, vomiting, or any diarrhea. He did have a Wood catheter. REVIEW OF SYSTEMS: Positive points as mentioned in HPI. Rest of review of system has been negative. Past medical and surgical history reviewed. No change Medications reviewed. PHYSICAL EXAMINATION: Blood pressure is 131/89 with a pulse of 85, temperature 97.8. He is 98% on room air. General description is an elderly male lying in bed in no distress. HEENT examination is slight pallor. No scleral icterus. Oral mucosal membranes are dry. Lungs unlabored breathing. Clear to auscultation anteriorly. Heart S1, S2. Regular rate and rhythm. Abdomen soft, no tenderness. No guarding or rigidity. EXTREMITIES: No edema of the feet. LABS: Hemoglobin 11.8, white count 17.2, BUN of 21, creatinine 0.87. Blood culture with ESBL E coli. CT abdomen and pelvis with some evidence of cystitis present but no abscess. DIAGNOSTIC IMPRESSION AND PLAN: Patient admitted to the hospital with urinary tract infection with secondary sepsis, now with the blood culture finalized with ESBL E coli. At this time, discontinue Zosyn. We will start the patient on meropenem 1 g q.8 hours. Continue with aggressive IV fluid. Blood culture has been repeated to document clearance of his bacteremia. The patient likely will repeat midline for outpatient IV antibiotic therapy on discharge. Continue supportive care. MMODL / IJN: [id number] /
[2018-02-03] MEDS: MEROPENEM 1 GM in SODIUM CHLORIDE 0.9% 100 ML IVPB SCH ×3 (00:34→16:38)
[2018-02-03 05:04] LABS: Basophils # (A) 0.1 k/uL (0-0.2); Basophils % (A) 0 %; Eosinophils # (A) 0.8 k/uL (0-0.7); Eosinophils % (A) 5 %; HCT 38.5 % (39.0-53.0); HGB 12.5 gm/dL (13.0-17.5); Lymphocytes # (A) 1.2 k/uL (1.0-4.8); Lymphocytes % (A) 9 %; MCH 30.9 pg (25.0-35.0); MCHC 32.4 g/dL (31.0-37.0); MCV 95.4 fL (80.0-100.0); Mean Platelet Volume 7.2; Monocytes # (A) 0.4 k/uL (0-1.0); Monocytes % (A) 3 %; Neutrophils # (A) 11.6 k/uL (1.3-7.7); Neutrophils % (A) 81 %; Platelet Count 162 k/uL (150-450); RBC 4.04 m/uL (4.30-5.90); RDW 12.9 % (11.5-15.5); WBC 14.3 k/uL (3.8-10.6)
[2018-02-03 05:08] LABS: INR 1.2 (<1.2); Prothrombin Time 11.9 sec (9.0-12.0)
[2018-02-03 05:20] LABS: Anion Gap 7 mmol/L; Blood Urea Nitrogen 16 mg/dL (9-20); Calcium 9.3 mg/dL (8.4-10.2); Carbon Dioxide 24 mmol/L (22-30); Chloride 106 mmol/L (98-107); Glucose 97 mg/dL (74-99); Potassium 4.4 mmol/L (3.5-5.1); Sodium 137 mmol/L (137-145)
--- NOTE | 2018-02-03 07:55 | P.PN ---
Subjective Progress Note Date: 02/03/18 Principal diagnosis: Acute sepsis, septic shock, related to urinary tract infection This is a 77-year-old white male patient of Dr. Duff, who presented to the emergency department on 01/31/2018 for evaluation of fever, body aches, status, severe weakness. Patient had a recent laser procedure for enlarged prostate a week ago on Tuesday. He was seen by Dr. Law in follow-up, and had his urinary catheter removed. Patient has then developed some urinary retention. Patient has been treated for significant urinary tract infections. He was on a course of oral antibiotics at the time of his presentation. Patient was febrile with a temp of 103.3F. He was complaining of back pain, and some minimal abdominal discomfort. Patient was tachycardic, with a heart rate at 120 BPM. Patient was fluid resuscitated with 2 L of IV fluids, never did require vasopressor support. He was started on Rocephin initially in the emergency department, however he was then switched to Unasyn, and then to Zosyn on which he currently remains. Urinary catheter was placed for urinary retention. Initial blood work did not show any leukocytosis, WBC was 6.5, hemoglobin is 14, renal profile and electrolytes were essentially unremarkable. Urinalysis showed moderate blood, large leukocyte esterase, greater than 180 2. blood cells, and many bacteria. Urine and blood cultures have been collected and sent, and preliminary blood cultures were positive for gram- negative bacilli. Final culture is pending. Chest x-ray was negative. Today' s blood work was reviewed, there has been acute elevation of white count at 21.9 , electrolytes were within normal limits, B1 is 25, creatinine is 1.08. Patient is afebrile this morning, he is awake and alert, oriented 3, in no acute distress, denies any shortness of breath or chest pain. Denies any other discomfort, he sitting up in bed eating breakfast. His IV fluids is 0.9 normal saline at a rate of 120 ML per hour. He is currently on 2 L per nasal cannula with a pulse ox of 98%. Hemodynamically stable. On 02/02/2018 patient seen in follow-up in intensive care unit. He has been awaiting a bed on general medical floor. This morning he is awake and alert, he is complaining of a mild headache, his blood pressure is 150/99, his home dose Lopressor has been restarted, metoprolol 12.5 mg daily. Denies any shortness of breath, denies any chest pain, still has a 0.9 normal seen infusing at a rate of 120 ML per hour, he is tolerating oral diet. He has been nonoliguric. Afebrile, his blood cultures and urine culture was positive for gram-negative bacilli, final culture is pending. Patient is covered with Zosyn. Today's blood work has been reviewed, white count is trending down, down to 17.9, hemoglobin is 11.8, sodium is 139, potassium is 4.2, chloride is 109, CO2 is 23, BUN is 21, creatinine 0.87. Clinically patient is hemodynamically stable, awake alert, no altered mentation. On 02/03/2018 patient seen in follow-up in the intensive care unit. He has been in general medical floor overflow patient since yesterday. Remains hemodynamically stable, he is awake and alert, oriented 3, no shortness of breath, no chest pain, does have a mild headache. He was restarted on his home dose Lopressor yesterday, systolic blood pressure is ranging from 1:30 to 1 50 mmHg, with a diastolic between 80-90 mmHg. Room air pulse ox of 90%, patient is afebrile. Urine and blood cultures positive for ESBL E. coli, susceptibility to Zosyn. Today's labs have been reviewed, WBC is trending down , down to 14.3, hemoglobin is 12.5, electrolytes and renal profile are all within normal limits. Patient has ambulated, and tolerating ambulation well. No acute events overnight. Objective - Vital Signs Vital signs: Vital Signs Temp 97.8 F 02/02/18 14:00 Pulse 85 02/02/18 14:00 Resp 12 02/03/18 00:00 BP 150/97 02/03/18 02:00 Pulse Ox 98 02/02/18 14:00 Intake & Output 02/02/18 02/03/18 02/03/18 18:59 06:59 18:59 Intake Total 285 120 Output Total 1960 625 Balance -8845 -751 Intake: IV 285 120 .9 kvo 45 120 Sodium Chloride 0.9% 1, 240 000 ml @ 120 mls/hr IV . Q8H20M [facility] Rx#:[id number] Output: Urine 1960 625 Other: Voiding Method Indwelling Catheter Indwelling Catheter # Voids 0 - Exam GENERAL EXAM: Alert, pleasant 77-year-old white male comfortable in no apparent distress. Complaining of a mild headache today HEAD: Normocephalic/atraumatic. EYES: Normal reaction of pupils, equal size. Conjunctiva pink, sclera white. NOSE: Clear with pink turbinates. THROAT: No erythema or exudates. NECK: No masses, no JVD, no thyroid enlargement, no adenopathy. CHEST: No chest wall deformity. Symmetrical expansion. LUNGS: Equal air entry with no crackles, wheeze, rhonchi or dullness. CVS: Regular rate and rhythm, normal S1 and S2, no gallops, no murmurs, no rubs ABDOMEN: Soft, nontender. No hepatosplenomegaly, normal bowel sounds, no guarding or rigidity. EXTREMITIES: No clubbing, no edema, no cyanosis, 2+ pulses and upper and lower extremities. MUSCULOSKELETAL: Muscle strength and tone normal. SPINE: No scoliosis or deformity SKIN: No rashes CENTRAL NERVOUS SYSTEM: Alert and oriented -3. No focal deficits, tone is normal in all 4 extremities. PSYCHIATRIC: Alert and oriented -3. Appropriate affect. Intact judgment and insight. - Labs CBC & Chem 7: 02/03/18 04:26 02/03/18 04:26 Labs: Abnormal Lab Results - Last 24 Hours (Table) 02/02/18 02/03/18 02/03/18 Range/Units 20:44 04:26 04:26 WBC 14.3 H (3.8-10.6) k/uL RBC 4.04 L (4.30-5.90) m/uL Hgb 12.5 L (13.0-17.5) gm/dL Hct 38.5 L (39.0-53.0) % Neutrophils # 11.6 H (1.3-7.7) k/uL Eosinophils # 0.8 H (0-0.7) k/uL INR 1.2 H (<1.2) POC Glucose (mg/dL) 107 H (75-99) mg/dL Microbiology - Last 24 Hours (Table) 01/31/18 13:04 Urine Culture - Final Urine,Catheterized Escherichia coli 02/01/18 12:18 Blood Culture - Preliminary Blood No Growth after 24 hours 01/31/18 09:45 Blood Culture Gram Stain - Final Blood Blood Culture - Final Escherichia coli Assessment and Plan Plan: Assessment: #1. Acute sepsis, septic shock, related to urinary tract infection secondary to ESBL E. coli #2. Fever, leukocytosis, altered mental status related to the above #3. Recent laser procedure for enlarged prostate #4. Urinary retention after removal of Wood catheter #5. History of atrial fibrillation on Coumadin #6. Sleep apnea on CPAP therapy #7. Former smoker #8. Daily alcohol use Plan: Continue current antibiotic coverage, will increase patient's dose of Lopressor to twice daily. Increase ambulation. Patient is awaiting bed on general medical floor. Remains hemodynamically stable, vital signs are stable. I performed a history & physical examination of the patient and discussed their management with my nurse practitioner, Leia Spence. I reviewed the nurse practitioner's note and agree with the documented findings and plan of care. Lung sounds are clear. The findings and the impression was discussed with I attest to the documentation by the nurse practitioner. Time with Patient: Less than 30
[2018-02-03] MEDS: DOCUSATE 100 MG CAP PO SCH ×2 (08:25→21:21)
[2018-02-03] MEDS: TAMSULOSIN 0.4 MG CAP.ER.24H PO SCH (08:25)
[2018-02-03] MEDS: METOPROLOL TARTRATE 12.5 MG TAB PO SCH ×2 (09:57→21:51)
[2018-02-03] MEDS: ACETAMINOPHEN TAB 325 MG TAB PO PRN (12:03)
--- NOTE | 2018-02-03 13:56 | P.PN ---
Subjective Progress Note Date: 02/03/18 This is a 77-year-old male patient of Dr. Duff with past medical history of chronic atrial fibrillation on Coumadin, obstructive sleep apnea with CPAP, benign prostatic hypertrophy with chronic urinary retention. He underwent greenlight laser treatment at [facility] on Tuesday, January [address] Lewis and follows with Dr. Gandhi. He saw Dr. Cabrales on Tuesday in his Olivier catheter was removed. There was some blood which they thought it was around the urethra and the tube but not from the bladder. Patient was to return to the office at 3 PM if he was not able to urinate. Patient up having some incontinence and voided throughout the night but by 6 a.m. he was very confused with fever and chills along with body aches, weakness and back pain. He does complain of abdominal bloating and uncomfortable feeling across the lower abdomen since the procedure was done. Activity makes his pain worse. He denies having any blood or black stools. He denies any lower extremity edema. He came into [facility] emergency center Temperature was 103.3 with tachycardia. His blood pressure eventually but dropped and he was given 2 L of IV fluid along with Tylenol and Motrin. He has not required vasopressors. Olivier catheter was placed with return of 900 mL. Patient was given dose of ceftriaxone followed by Unasyn. Urinalysis was positive for urinary tract infection. Patient was admitted into the intensive care unit. Dr. ramos was placed on for intensive care management. Dr. Gandhi has evaluated the patient with recommendations to maintain Olivier catheter until follow-up in the office. Patient has been hemodynamically stable and will be transferred to selective care today. Blood culture is showing gram-negative bacilli and consult with infectious disease has been added. Repeat blood cultures ordered. Patient is maintained on Zosyn. 02/02: Blood culture positive for ESBl E Coli. Repeat blood culture is status received. Urine culture is in progress. Antibiotics have been switched to meropenem by Dr. Gama. Patient states he is not feeling as good as yesterday. He states he did sleep better during the night. He complains of generalized weakness. He complains of a headache and his eyes hurt in the back. He is awaiting a bed on the [facility] floor. He does continue to have some abdominal pain which is now in the left lower quadrant. His last bowel movement was yesterday. He denies any known blood in his urine. He denies any flank pain. CAT scan of the abdomen and pelvis has been ordered. Patient does have chronic problems with intermittent constipation. INR is 1.3 and Coumadin 10 mg ordered for tonight, white count is down to 17.9. Patient has been afebrile. Patient is waiting for [facility] bed. 02/03: He is feeling much better today and his agrees that he looks much improved. CAT scan of the abdomen and pelvis revealed air in the urinary bladder, possibly extending into the urinary bladder wall anteriorly or, which could relate to emphysematous cystitis or more likely due to recent instrumentation with Olivier catheter. Olivier catheter is noted to be low lying situated just above the prosthetic portion of the urethra. No air in the renal collecting systems to suggest emphysematous pyelitis. No nephric fluid collection to suggest abscess. Abdominal pain is improved today. Dr. Gama is recommended midline were antibiotics. Midline will be ordered for today as repeat blood culture is showing no growth at 24 hours. Patient has been hemodynamically stable and is waiting for [facility] bed. Olivier catheter remains in place and urine output has been adequate. Review Of Systems: Constitutional: No fever, no chills, no night sweats. + weakness, +fatigue. EENT: + headache. No blurred vision or double vision, no loss of vision. No loss of Hearing, no ringing in the ears, no dizziness. No nasal drainage or congestion. No epistaxis. No sore throat. Lungs: No shortness of breath, cough, no sputum production. No wheezing. Cardiovascular: No chest pain, no lower extremity edema. No lightheadedness or dizziness. No syncopal episodes. Abdominal: LLQ abdominal pain. No nausea, vomiting. No diarrhea. No constipation. No bloody or tarry stools. Genitourinary: + olivier. Musculoskeletal: + muscle weakness, no gait dysfunction, no frequent falls. No back pain. No neck pain. Integumentary: No wounds, no lesions. No rash or pruritus. No unusual bruising. No change in hair or nails. Objective - Vital Signs Vital signs: Vital Signs Temp 98.1 F 02/03/18 08:00 Pulse 76 02/03/18 08:00 Resp 18 02/03/18 08:00 BP 139/80 02/03/18 08:00 Pulse Ox 95 02/03/18 08:18 Intake & Output 02/02/18 02/03/18 02/03/18 18:59 06:59 18:59 Intake Total 285 120 Output Total 1960 625 Balance -3701 -346 Intake: IV 285 120 .9 kvo 45 120 Sodium Chloride 0.9% 1, 240 000 ml @ 120 mls/hr IV . Q8H20M [facility] Rx#:[id number] Output: Urine 1959 Other: Voiding Method Indwelling Catheter Indwelling Catheter # Voids 0 - Exam Gen: This is a obese 72-year-old male. He is sitting in the ICU bed in no acute distress. HEENT: Head is atraumatic, normocephalic. Pupils equal, round. Sclerae is anicteric. Conjunctiva pink. NECK: Supple. No JVD. No lymphadenopathy. No thyromegaly. LUNGS: Clear to auscultation. No wheezes or rhonchi. No accessory muscle usage. No intercostal retractions. HEART: Regular rate and rhythm. No murmur. ABDOMEN: Soft. Bowel sounds are present. No masses. No tenderness. Olivier catheter draining clear albino urine, unchanged. EXTREMITIES: No pedal edema. No calf tenderness. Dorsalis pedis is +2 bilaterally. NEUROLOGICAL: Patient is awake, alert and oriented x3. Cranial nerves 2 through 12 are grossly intact. - Labs CBC & Chem 7: 02/03/18 04:26 02/03/18 04:26 Labs: Abnormal Lab Results - Last 24 Hours (Table) 02/02/18 02/03/18 02/03/18 Range/Units 20:44 04:26 04:26 WBC 14.3 H (3.8-10.6) k/uL RBC 4.04 L (4.30-5.90) m/uL Hgb 12.5 L (13.0-17.5) gm/dL Hct 38.5 L (39.0-53.0) % Neutrophils # 11.6 H (1.3-7.7) k/uL Eosinophils # 0.8 H (0-0.7) k/uL INR 1.2 H (<1.2) POC Glucose (mg/dL) 107 H (75-99) mg/dL Microbiology - Last 24 Hours (Table) 01/31/18 09:45 Blood Culture Gram Stain - Final Blood Blood Culture - Final Escherichia coli 01/31/18 13:04 Urine Culture - Final Urine,Catheterized Escherichia coli 02/01/18 12:18 Blood Culture - Preliminary Blood No Growth after 24 hours Assessment and Plan Plan: 1. Sepsis, septic shock secondary to ESBL E. coli urinary tract infection and recent surgical manipulation and Olivier catheter status post fluid resuscitation with 2 L. Zosyn changed to meropenem. Midline ordered. Repeat blood culture showing no growth. 2. Acute metabolic encephalopathy secondary to sepsis, resolved. 3. Benign prostatic hypertrophy status post greenlight procedure. Maintain Olivier catheter until follow-up with Dr. Cabrales. 4. Chronic atrial fibrillation. Continue Coumadin and Lopressor, monitor INR daily. Coumadin 10 mg ordered for tonight. 5. Obstructive sleep apnea. Patient's to bring in CPAP. 6. Daily alcohol use. Monitor for DTs. 7. Remote history of tobacco use, stable. 8. DVT prophylaxis. Coumadin. 9. GI prophylaxis. Pepcid. Discharge plan: Return home on Tuesday with IV antibiotics Impression and plan of care have been directed as dictated by the signing physician. Kortney Alvarez nurse practitioner acting as scribe for signing physician.
[2018-02-03] MEDS: WARFARIN 10 MG TAB PO SCH (18:52)
[2018-02-03 20:51] LABS: Glucose,Whole Blood 105 mg/dL (75-99)
[2018-02-04] MEDS: MEROPENEM 1 GM in SODIUM CHLORIDE 0.9% 100 ML IVPB SCH ×3 (00:28→16:42)
[2018-02-04 05:46] LABS: HCT 40.3 % (39.0-53.0); HGB 13.1 gm/dL (13.0-17.5); MCH 30.4 pg (25.0-35.0); MCHC 32.4 g/dL (31.0-37.0); Platelet Count 196 k/uL (150-450); RBC 4.29 m/uL (4.30-5.90); RDW 12.8 % (11.5-15.5)
[2018-02-04 05:53] LABS: INR 1.4 (<1.2); Prothrombin Time 13.3 sec (9.0-12.0)
[2018-02-04 07:08] LABS: Anion Gap 8 mmol/L; Blood Urea Nitrogen 18 mg/dL (9-20); Calcium 9.5 mg/dL (8.4-10.2); Carbon Dioxide 27 mmol/L (22-30); Chloride 104 mmol/L (98-107); Glucose 99 mg/dL (74-99); Potassium 4.6 mmol/L (3.5-5.1); Sodium 139 mmol/L (137-145)
[2018-02-04 07:14] LABS: Glucose,Whole Blood 91 mg/dL (75-99)
--- NOTE | 2018-02-04 08:11 | PN ---
PROGRESS NOTE DATE OF SERVICE: 02/03/2018. REASON FOR FOLLOWUP: ESBL E coli bacteremia secondary to urinary source. INTERVAL HISTORY: The patient is currently afebrile. He is feeling better today, breathing comfortably. Denies having any chest pain, shortness of breath or cough. No abdominal pain. No nausea, vomiting or diarrhea. EXAMINATION: Blood pressure 134/83 with a pulse of 69, temperature 97.8. He is 98% on room air. General description is an elderly male lying in bed in no distress. RESPIRATORY SYSTEM: Unlabored breathing. Clear to auscultation anteriorly. HEART: S1, S2. Regular rate and rhythm. ABDOMEN: Soft, no tenderness. EXTREMITIES: No edema feet. LABS: Hemoglobin is 12.5, white count 14.3 with a BUN of 16, creatinine 0.84. DIAGNOSTIC IMPRESSION AND PLAN: Patient with ESBL E coli bacteremia secondary to urinary source. Patient is currently covered with meropenem and that will be continued. Transition to Invanz 1 g daily possibly on Tuesday to finish an 8 week course of therapy with close outpatient followup. Questions and concerns were answered. MMODL / IJN: [id number] /
[2018-02-04] MEDS: TAMSULOSIN 0.4 MG CAP.ER.24H PO SCH (08:59)
[2018-02-04] MEDS: METOPROLOL TARTRATE 12.5 MG TAB PO SCH ×2 (08:59→20:36)
[2018-02-04 12:08] LABS: Glucose,Whole Blood 90 mg/dL (75-99)
[2018-02-04 14:08] LABS: Glucose,Whole Blood 119 mg/dL (75-99)
[2018-02-04] MEDS: DOCUSATE 100 MG CAP PO SCH ×2 (16:43→20:35)
--- NOTE | 2018-02-04 18:30 | P.PN ---
Subjective Progress Note Date: 02/04/18 Principal diagnosis: Sepsis Patient continued to improve and feels more energetic today was up walking in the hallway on his own denying chest pain shortness breath nausea vomiting abdominal pain dizziness lightheadedness or blurry visionv Objective - Vital Signs Vital signs: Vital Signs Temp 98.0 F 02/03/18 20:00 Pulse 66 02/03/18 20:00 Resp 12 02/04/18 00:00 BP 136/85 02/04/18 00:00 Pulse Ox 98 02/03/18 20:00 Intake & Output 02/03/18 02/04/18 02/04/18 18:59 06:59 18:59 Intake Total 630 Output Total 1700 1150 Balance -1070 -1150 Intake: IV 60 .9 kvo 60 Intake, IV Titration 200 Amount Meropenem 1 gm In Sodium 200 Chloride 0.9% 100 ml @ 200 mls/hr IVPB Q8HR [facility] Rx#:[id number] Oral 370 Output: Urine 1700 1150 Other: Voiding Method Indwelling Catheter Indwelling Catheter # Voids 0 # Bowel Movements 1 - Exam Constitutional: Well developed, well nourished, no acute distress, non-toxic appearance Eyes: PERRL, conjunctiva normal HENT: Atraumatic, external ears normal, nose normal, oropharynx moist, no pharyngeal exudates. Neck- normal range of motion, no tenderness, supple Respiratory: No respiratory distress, normal breath sounds, no rales, no wheezing Cardiovascular: Normal rate, normal rhythm, no murmurs, no gallops, no rubs GI: Soft, nondistended, normal bowel sounds, nontender, no organomegaly, no mass, no rebound, no guarding : No costovertebral angle tenderness Musculoskeletal: No edema, no tenderness, no deformities. Back- no tenderness Integument: Well hydrated, no rash Lymphatic: No lymphadenopathy noted Neurologic: Alert & oriented x 3, CN 2-12 normal, normal motor function, normal sensory function, no focal deficits noted Psychiatric: Speech and behavior appropriate - Labs CBC & Chem 7: 02/04/18 05:01 02/04/18 05:01 Labs: Abnormal Lab Results - Last 24 Hours (Table) 02/03/18 02/04/18 02/04/18 Range/Units 20:49 05:01 05:01 WBC 12.0 H (3.8-10.6) k/uL RBC 4.29 L (4.30-5.90) m/uL PT 13.3 H (9.0-12.0) sec INR 1.4 H (<1.2) POC Glucose (mg/dL) 105 H (75-99) mg/dL 02/04/18 Range/Units 13:42 WBC (3.8-10.6) k/uL RBC (4.30-5.90) m/uL PT (9.0-12.0) sec INR (<1.2) POC Glucose (mg/dL) 119 H (75-99) mg/dL Microbiology - Last 24 Hours (Table) 02/01/18 12:18 Blood Culture - Preliminary Blood No Growth after 72 hours Assessment and Plan Assessment: 1. Sepsis with ESBL bacteremia. 2. Acute urinary tract infection. 3. Status post greenlight procedure. 4. Benign prostatic hypertrophy. 5. Hypertension. 6. Debility and deconditioning. We will continue with current antibiotics, follow up with infectious diseases recommendation regarding discharge planning, continue monitoring vital signs closely and repeat blood work in the morning encourage ambulation and encourage oral intake. Plan discussed with patient and his at the bedside who are both agreeable to the current treatment plan and we will consider discharging patient based on clinical progress
[2018-02-04] MEDS: WARFARIN 10 MG TAB PO SCH (19:10)
[2018-02-05] MEDS: MEROPENEM 1 GM in SODIUM CHLORIDE 0.9% 100 ML IVPB SCH ×3 (01:23→16:58)
[2018-02-05 05:41] LABS: HGB 13.7 gm/dL (13.0-17.5); MCH 31.4 pg (25.0-35.0); MCHC 33.5 g/dL (31.0-37.0); MCV 93.8 fL (80.0-100.0); Mean Platelet Volume 6.9; Platelet Count 206 k/uL (150-450); RBC 4.37 m/uL (4.30-5.90); RDW 12.8 % (11.5-15.5); WBC 14.1 k/uL (3.8-10.6)
[2018-02-05 05:50] LABS: INR 1.7 (<1.2); Prothrombin Time 15.2 sec (9.0-12.0)
[2018-02-05 05:58] LABS: Anion Gap 7 mmol/L; Blood Urea Nitrogen 21 mg/dL (9-20); Calcium 9.9 mg/dL (8.4-10.2); Carbon Dioxide 28 mmol/L (22-30); Chloride 103 mmol/L (98-107); Glucose 106 mg/dL (74-99); Potassium 4.9 mmol/L (3.5-5.1); Sodium 138 mmol/L (137-145)
[2018-02-05 07:12] LABS: Glucose,Whole Blood 113 mg/dL (75-99)
[2018-02-05] MEDS: DOCUSATE 100 MG CAP PO SCH ×3 (09:10→21:22)
[2018-02-05] MEDS: TAMSULOSIN 0.4 MG CAP.ER.24H PO SCH (09:10)
[2018-02-05] MEDS: METOPROLOL TARTRATE 12.5 MG TAB PO SCH ×2 (09:10→21:22)
--- NOTE | 2018-02-05 13:26 | CT ---
EXAMINATION TYPE: CT brain wo con DATE OF EXAM: 02/05/2018 COMPARISON: NONE HISTORY: seizure activity CT DLP: 1135.4 mGycm Automated exposure control for dose reduction was used. FINDINGS: There are generalized changes of sulcal prominence and ventriculomegaly, compatible with atrophic dennis nge. There is diffuse periventricular white matter lucency, compatible with chronic white matter isch emic change. There is no acute focal lesion, mass effect or midline shift identified. I do not see ev idence of intracranial blood. Visualized portions of the paranasal sinuses and mastoids are clear. The bony calvarium is intact. IMPRESSION: 1. NO ACUTE INTRACRANIAL ABNORMALITY. 2. DEGENERATIVE CHANGE.
--- NOTE | 2018-02-05 14:14 | P.CONS ---
History of Present Illness - Reason for Consult Consult date: 02/05/18 Possible seizure activity - Chief Complaint Abnormal movements of the left arm and leg - History of Present Illness This is a pleasant 77-year-old male being evaluated by the neurology service for some abnormal movements on the left side. In the [facility] ICU being treated for urosepsis. He was doing very well but had 2 separate episodes lasting less than a minute of involuntary left arm and left leg movements. He was no loss of consciousness. He denies having these symptoms previously. His was in the room witnessed these episodes. At this time my exam he is sitting up resting comfortably in his bedside chair in no acute distress. Review of Systems All systems: negative Constitutional: Reports as per HPI Past Medical History Past Medical History: Atrial Fibrillation, Prostate Disorder, Sleep Apnea/CPAP/ BIPAP Additional Past Medical History / Comment(s): Current UTI, recent urinary retention/IDC which was discontinued 01/30/18, past BPH and had greenlight laser treatment at [place], [facility] with bipap History of Any Multi-Drug Resistant Organisms: ESBL Year Discovered:: 01/31/18 MDRO Source:: ESBL URINE, BLOOD Past Surgical History: Cholecystectomy, Orthopedic Surgery, Prostate Surgery Additional Past Surgical History / Comment(s): 01/25/18 prostrate greenlight laser treatment at [place], right first digit top phlange removed, bilateral knee arthroscopy, colonoscopy-normal. Past Anesthesia/Blood Transfusion Reactions: No Reported Reaction Smoking Status: Former smoker Additional Past Alcohol Use History / Comment(s): Patient was a smoker one and half packs per day for 15-20 years and quit 40 years ago. He drinks a couple beers per day during the summer. He lives at home with his . - Past Family History Father Family Medical History: Dementia Additional Family Medical History / Comment(s): Father at age 72 from heart failure with history of Alzheimer dementia. Mother Additional Family Medical History / Comment(s): Scoliosis. Mother at age 83 from heart failure. Brother(s) Additional Family Medical History / Comment(s): Patient has 3 brothers. One with history of prostate cancer, 1 with benign prostatic hypertrophy, and one with unknown medical problems. Sister(s) Additional Family Medical History / Comment(s): Patient has one sister that at age 9 from some type of congenital brain disorder, unknown type. Patient has 2 daughters and 1 son with no major medical problems. Medications and Allergies Home Medications Medication Instructions Recorded Confirmed Type Fish Oil/Dha/Epa [Fish Oil 1,200 1 cap PO DAILY 12/06/17 01/31/18 History mg Fish Oil] Metoprolol Tartrate [Lopressor] 12.5 mg PO DAILY 12/06/17 01/31/18 History Tamsulosin [Flomax] 0.4 mg PO DAILY 12/06/17 01/31/18 History Warfarin [Coumadin] 5 mg PO SUTUTHFR 12/06/17 01/31/18 History Glucosam/Tom-Msm1/C/Caleb/Bosw 1 tab PO DAILY 12/22/17 01/31/18 History [Glucosamine-Chondroitin Tablet] Warfarin [Coumadin] 7.5 mg PO MOWESA 01/31/18 01/31/18 History Allergies Allergy/AdvReac Type Severity Reaction Status Date / Time terbinafine [From Lamisil] Allergy Rash/Hives Verified 01/31/18 10:23 sulfamethoxazole AdvReac Unknown Verified 01/31/18 10:23 [From Bactrim] trimethoprim [From Bactrim] AdvReac Unknown Verified 01/31/18 10:23 Physical Exam Vitals: Vital Signs Temp Pulse Resp BP Pulse Ox 02/05/18 04:00 98.2 F 131/88 02/05/18 00:00 98.0 F 65 16 131/88 02/04/18 22:00 131/88 02/04/18 20:00 98.1 F 70 15 116/72 96 02/04/18 16:00 98.1 F 68 12 128/72 96 Intake and Output 02/04/18 02/05/18 02/05/18 22:59 06:59 14:59 Intake Total 700 Output Total 1250 600 Balance -550 -600 Intake: Intake, IV Titration 100 Amount Meropenem 1 gm In Sodium 100 Chloride 0.9% 100 ml @ 200 mls/hr IVPB Q8HR [facility] Rx#:[id number] Oral 600 Output: Urine 1250 600 Other: Voiding Method Indwelling Catheter Indwelling Catheter # Voids 0 - Constitutional General appearance: average body habitus, cooperative, no acute distress - EENT Eyes: no abnormal pupil, EOMI, PERRLA, no ptosis ENT: hearing grossly normal - Neck Neck: normal ROM, no rigidity - Respiratory Respiratory: negative: prolonged expiration, prolonged inspiration - Cardiovascular Rhythm: regular - Gastrointestinal General gastrointestinal: no distended, no tenderness - Neurologic The patient is alert awake and oriented 3. Speech and language are normal. There is no facial asymmetry. Strength is 5 out of 5 in bilateral upper and lower extremities. There is no sensory deficit. No tremors or seizures are seen. Cranial nerves II through XII are intact globally. Results CBC & Chem 7: 02/05/18 05:21 02/05/18 05:21 Labs: Abnormal Lab Results - Last 24 Hours (Table) 02/04/18 02/05/18 02/05/18 Range/Units 13:42 05:21 05:21 WBC 14.1 H (3.8-10.6) k/uL PT 15.2 H (9.0-12.0) sec INR 1.7 H (<1.2) BUN (9-20) mg/dL Glucose (74-99) mg/dL POC Glucose (mg/dL) 119 H (75-99) mg/dL 02/05/18 02/05/18 Range/Units 05:21 07:10 WBC (3.8-10.6) k/uL PT (9.0-12.0) sec INR (<1.2) BUN 21 H (9-20) mg/dL Glucose 106 H (74-99) mg/dL POC Glucose (mg/dL) 113 H (75-99) mg/dL Microbiology - Last 24 Hours (Table) 02/01/18 12:18 Blood Culture - Preliminary Blood No Growth after 72 hours Assessment and Plan (1) Involuntary movements Current Visit: Yes Status: Acute Code(s): R25.9 - UNSPECIFIED ABNORMAL INVOLUNTARY MOVEMENTS SNOMED Code(s): 702856644 (2) Blurred vision, bilateral Current Visit: Yes Status: Resolved Code(s): H53.8 - OTHER VISUAL DISTURBANCES SNOMED Code(s): 843304448 (3) Atrial fibrillation Current Visit: Yes Status: Chronic Code(s): I48.91 - UNSPECIFIED ATRIAL FIBRILLATION SNOMED Code(s): 48956895 (4) Sepsis Current Visit: Yes Status: Acute Code(s): A41.9 - SEPSIS, UNSPECIFIED ORGANISM SNOMED Code(s): 83230474 (5) UTI (urinary tract infection) Current Visit: Yes Status: Acute Code(s): N39.0 - URINARY TRACT INFECTION, SITE NOT SPECIFIED SNOMED Code(s): 16671995 (6) Focal seizure Current Visit: Yes Status: Suspected Code(s): R56.9 - UNSPECIFIED CONVULSIONS SNOMED Code(s): 20319244 Plan: This patient who has been in the ICU and being treated for acute sepsis and septic shock due to urinary tract infection developed some involuntary movements of the right upper and lower extremities lasting less than a minute. These were consistent with focal seizures There was also some mention of blurry vision which she says is not a new finding for him. Regardless a CT of the brain was done and showed no acute intracranial abnormalities. There was chronic small vessel ischemic changes along with age-appropriate cerebral atrophy. He has had no recurrence of these abnormal movements. He denies previous history of these movements or any kind of seizures. I have ordered an EEG. Continue neurological checks. I will continue to follow and make recommendations based on the above studies. Please call us for any new suspected seizure activity. I have performed a history and physical on the above patient. I have reviewed the above note, and agree.
[2018-02-05] MEDS: valACYclovir 500 MG TAB PO SCH ×2 (16:58→21:22)
[2018-02-05] MEDS ORDERED: WARFARIN 7.5 MG TAB PO SCH (18:00)
[2018-02-05] MEDS ORDERED: WARFARIN 5 MG TAB PO SCH (18:30)
--- NOTE | 2018-02-05 21:33 | P.PN ---
Subjective Progress Note Date: 02/05/18 Principal diagnosis: Sepsis Patient is complaining of rash on his right face and stated that that developed overnight on examination I seems to be vesicles on the base of the somatic skin changes tender to touch with open sores uncertain spots Objective - Vital Signs Vital signs: Vital Signs Temp 98.9 F 02/05/18 20:00 Pulse 84 02/05/18 20:00 Resp 16 02/05/18 20:00 BP 114/58 02/05/18 20:00 Pulse Ox 97 02/05/18 20:00 Intake & Output 02/05/18 02/05/18 02/06/18 06:59 18:59 06:59 Intake Total 350 Output Total 1500 1500 Balance -1500 -1150 Intake: Oral 350 Output: Urine 1500 1500 Other: Voiding Method Indwelling Catheter Indwelling Catheter # Voids 0 0 - Exam Constitutional: Well developed, well nourished, no acute distress, non-toxic appearance Eyes: PERRL, conjunctiva normal HENT: Atraumatic, external ears normal, nose normal, oropharynx moist, no pharyngeal exudates. Neck- normal range of motion, no tenderness, supple Respiratory: No respiratory distress, normal breath sounds, no rales, no wheezing Cardiovascular: Normal rate, normal rhythm, no murmurs, no gallops, no rubs GI: Soft, nondistended, normal bowel sounds, nontender, no organomegaly, no mass, no rebound, no guarding : No costovertebral angle tenderness Musculoskeletal: No edema, no tenderness, no deformities. Back- no tenderness Integument: Well hydrated, no rash Lymphatic: No lymphadenopathy noted Neurologic: Alert & oriented x 3, CN 2-12 normal, normal motor function, normal sensory function, no focal deficits noted Psychiatric: Speech and behavior appropriate - Labs CBC & Chem 7: 02/05/18 05:21 02/05/18 05:21 Labs: Abnormal Lab Results - Last 24 Hours (Table) 02/05/18 02/05/18 02/05/18 Range/Units 05:21 05:21 05:21 WBC 14.1 H (3.8-10.6) k/uL PT 15.2 H (9.0-12.0) sec INR 1.7 H (<1.2) BUN 21 H (9-20) mg/dL Glucose 106 H (74-99) mg/dL POC Glucose (mg/dL) (75-99) mg/dL 02/05/18 Range/Units 07:10 WBC (3.8-10.6) k/uL PT (9.0-12.0) sec INR (<1.2) BUN (9-20) mg/dL Glucose (74-99) mg/dL POC Glucose (mg/dL) 113 H (75-99) mg/dL Microbiology - Last 24 Hours (Table) 02/01/18 12:18 Blood Culture - Preliminary Blood No Growth after 96 hours Assessment and Plan Assessment: 1. Sepsis with ESBL bacteremia. 2. Acute urinary tract infection. 3. Status post greenlight procedure. 4. Benign prostatic hypertrophy. 5. Hypertension. 6. New diagnoses of shingles I have discussed with the patient and later with infectious disease the diagnosis of shingles and we will apply contact isolation. Patient's on Valtrex 1000 mg 3 times daily for 7 days continue with skin care and hygiene I would like to continue with current IV antibiotics and consider discharging patients home with antibiotics tomorrow morning per infectious disease recommendation. Plan discussed with patient and his and both agreeable to the current treatment plan
[2018-02-05] MEDS: valACYclovir HCL 1,000 MG TABLET PO SCH (22:00)
[2018-02-06] MEDS: MEROPENEM 1 GM in SODIUM CHLORIDE 0.9% 100 ML IVPB SCH ×2 (00:12→08:34)
[2018-02-06 05:52] LABS: HCT 42.2 % (39.0-53.0); HGB 13.9 gm/dL (13.0-17.5); MCH 31.2 pg (25.0-35.0); MCV 94.5 fL (80.0-100.0); Mean Platelet Volume 7.3; Platelet Count 231 k/uL (150-450); RBC 4.47 m/uL (4.30-5.90); WBC 14.9 k/uL (3.8-10.6)
[2018-02-06 05:56] LABS: INR 1.8 (<1.2); Prothrombin Time 16.2 sec (9.0-12.0)
[2018-02-06] MEDS: TAMSULOSIN 0.4 MG CAP.ER.24H PO SCH (08:41)
[2018-02-06] MEDS: valACYclovir HCL 1,000 MG TABLET PO SCH ×2 (08:41→16:53)
[2018-02-06] MEDS: METOPROLOL TARTRATE 12.5 MG TAB PO SCH (08:41)
[2018-02-06] MEDS: DOCUSATE 100 MG CAP PO SCH (08:41)
--- NOTE | 2018-02-06 14:48 | P.PN ---
Subjective Progress Note Date: 02/06/18 Principal diagnosis: Seizure activity This a pleasant 77-year-old male continuing to be evaluated by the neurology service for her abnormal movements of his left side. He has been in the [facility] ICU being treated for urosepsis. Clinically he continues to do well from an infectious disease standpoint. Recall he had 2 episodes lasting less than a minute of involuntary left arm and left leg movements. He had no loss of consciousness. He had no postictal period. He has had no further episodes. At the time of my exam he is sleeping comfortably in his bed. No seizure activity is seen. An EEG has been performed. Objective - Vital Signs Vital signs: Vital Signs Temp 98.3 F 02/06/18 12:00 Pulse 78 02/06/18 12:00 Resp 16 02/06/18 12:00 BP 120/57 02/06/18 12:00 Pulse Ox 96 02/06/18 12:00 Intake & Output 02/05/18 02/06/18 02/06/18 18:59 06:59 18:59 Intake Total 350 690 100 Output Total 1500 240 200 Balance -1150 450 -100 Intake: Intake, IV Titration 100 Amount Meropenem 1 gm In Sodium 100 Chloride 0.9% 100 ml @ 200 mls/hr IVPB Q8HR [facility] Rx#:[id number] Oral 350 690 Output: Urine 1500 240 200 Other: Voiding Method Indwelling Catheter Indwelling Catheter Indwelling Catheter # Voids 0 - Constitutional General appearance: Present: average body habitus, no acute distress - EENT Eyes: Present: PERRLA. Absent: abnormal pupil, ptosis - Neck Neck: Present: normal ROM. Absent: rigidity - Respiratory Respiratory: negative: prolonged expiration, prolonged inspiration - Cardiovascular Rhythm: regular - Gastrointestinal General gastrointestinal: Absent: distended - Neurologic Neurologic Comment(s): The patient is sleeping and resting comfortably at the time my exam. No facial asymmetry. There is no lateralizing weakness. No tremors or seizure-like activities are seen. - Labs CBC & Chem 7: 02/06/18 05:10 02/05/18 05:21 Labs: Abnormal Lab Results - Last 24 Hours (Table) 02/06/18 02/06/18 Range/Units 05:10 05:10 WBC 14.9 H (3.8-10.6) k/uL PT 16.2 H (9.0-12.0) sec INR 1.8 H (<1.2) Microbiology - Last 24 Hours (Table) 02/01/18 12:18 Blood Culture - Preliminary Blood No Growth after 120 hours Assessment and Plan (1) Involuntary movements Current Visit: Yes Status: Acute Code(s): R25.9 - UNSPECIFIED ABNORMAL INVOLUNTARY MOVEMENTS SNOMED Code(s): 352507381 (2) Blurred vision, bilateral Current Visit: Yes Status: Resolved Code(s): H53.8 - OTHER VISUAL DISTURBANCES SNOMED Code(s): 858407702 (3) Atrial fibrillation Current Visit: Yes Status: Chronic Code(s): I48.91 - UNSPECIFIED ATRIAL FIBRILLATION SNOMED Code(s): 03703198 (4) Sepsis Current Visit: Yes Status: Acute Code(s): A41.9 - SEPSIS, UNSPECIFIED ORGANISM SNOMED Code(s): 75828311 (5) UTI (urinary tract infection) Current Visit: Yes Status: Acute Code(s): N39.0 - URINARY TRACT INFECTION, SITE NOT SPECIFIED SNOMED Code(s): 59305354 (6) Focal seizure Current Visit: Yes Status: Suspected Code(s): R56.9 - UNSPECIFIED CONVULSIONS SNOMED Code(s): 99482871 Plan: This patient who has been in the ICU and being treated for acute sepsis and septic shock due to urinary tract infection developed some involuntary movements of the left upper and lower extremities lasting less than a minute. These were consistent with focal seizures There was also some mention of blurry vision which she says is not a new finding for him. Regardless a CT of the brain was done and showed no acute intracranial abnormalities. There was chronic small vessel ischemic changes along with age-appropriate cerebral atrophy. He has had no recurrence of these abnormal movements. He denies previous history of these movements or any kind of seizures. I have ordered an EEG. Continue neurological checks. I will continue to follow and make recommendations based on the above studies. Please call us for any new suspected seizure activity. I have performed a history and physical on the above patient. I have reviewed the above note, and agree.
[2018-02-06] MEDS ORDERED: ERTAPENEM 1 GM in SODIUM CHLORIDE 0.9% 50 ML IVPB SCH (16:00)
--- NOTE | 2018-02-06 17:34 | EEG ---
ELECTROENCEPHALOGRAM REPORT DATE OF SERVICE: 02/06/2018. REASON FOR TESTING: Jerking activity, rule out seizures. DESCRIPTION OF THE PROCEDURE: This EEG was performed using a 21 channel digital electroencephalograph, following international 10-20 system. DESCRIPTION OF THE RECORDING: From the beginning of the tracing, and with patient's eyes closed, the background rhythm was mostly consisting of 10 Hz alpha frequency in the posterior occipital leads. No obvious asymmetry is seen. Photic stimulation was performed with a minimal driving response seen. No pathological waves were elicited. Hyperventilation was not performed. Occasional movement and muscle artifacts are seen. The patient does reach stage II of sleep during the tracing and occasional sleep spindles are seen. No epileptiform discharges were seen. His EKG lead showed an irregularly irregular rhythm with a normal rate. INTERPRETATION: This asleep and awake EEG can be considered within normal limits except his EKG lead showed an irregularly irregular rhythm with a normal rate. No epileptiform discharges were seen. The absence of epileptiform discharges does not rule out the diagnosis of epilepsy; therefore clinical correlation is recommended. MMJERRY / DAV: [id number] /
[2018-02-06] MEDS ORDERED: WARFARIN 5 MG TAB PO SCH (18:00)
[2018-02-06] MEDS ORDERED: WARFARIN 7.5 MG TAB PO SCH (18:00)
[2018-02-06 18:29] VITALS: BP 110/58; PULSE 71; RESP 15; TEMP 97.9
--- NOTE | 2018-02-07 00:19 | PN ---
PROGRESS NOTE DATE OF SERVICE: 02/06/2018. REASON FOR FOLLOWUP: ESBL E coli bacteremia and UTI. INTERVAL HISTORY: The patient was seen on rounds earlier this morning. The patient has been afebrile. He is breathing comfortably. Denies any chest pain, shortness of breath or cough. No abdominal pain and no diarrhea. EXAMINATION: Blood pressure 110/58 with a pulse of 71. Temperature 97.9. He is 96% on room air. General description is an elderly male up in the bed in no distress. Respiratory system: Unlabored breathing. Clear to auscultation anteriorly. Heart S1, S2. Regular rate and rhythm. Abdomen soft, no tenderness. LABS: White count elevated at 14.9 and , creatinine 0.86. Blood culture repeat has been negative. DIAGNOSTIC IMPRESSION/PLAN: 1. Patient with an ESBL E coli urinary tract infection and bacteremia. The patient decided to continue with meropenem Invanz 1 g daily for 2 weeks after discharge with close outpatient followup. 2. Patient with right dermatoma, Valtrex 1 g every 8 hours to finish a 7 day course of therapy. 3. Continue supportive care. MMODL / IJN: [id number] /
--- NOTE | 2018-02-07 11:34 | P.DS ---
Providers Date of admission: 01/31/18 14:07 Expected date of discharge: 02/06/18 Attending physician: Altaf Duff Consults: 01/31/18 14:06 Consult Physician Routine Consulting Provider: Brandt Saeed Consult Reason/Comments: sepsis, hypotensive shock Do you want consulting provider notified?: Already Contacted 02/01/18 10:56 Consult Physician Routine Consulting Provider: Estrella Gama Consult Reason/Comments: gram negative bacteremia, uti Do you want consulting provider notified?: Yes 02/04/18 13:44 Consult Physician Stat Consulting Provider: Alyssa Valdez Consult Reason/Comments: occasional blurry vision, involuntary movements Do you want consulting provider notified?: Yes Primary care physician: [facility] Hospital Course: This is a 77-year-old male patient of Dr. Duff with past medical history of chronic atrial fibrillation on Coumadin, obstructive sleep apnea with CPAP, benign prostatic hypertrophy with chronic urinary retention. He underwent greenlight laser treatment at [facility] on Tuesday, January [address] Lewis and follows with Dr. Gandhi. He saw Dr. Cabrales on Tuesday in his Wood catheter was removed. There was some blood which they thought it was around the urethra and the tube but not from the bladder. Patient was to return to the office at 3 PM if he was not able to urinate. Patient up having some incontinence and voided throughout the night but by 6 a.m. he was very confused with fever and chills along with body aches, weakness and back pain. He does complain of abdominal bloating and uncomfortable feeling across the lower abdomen since the procedure was done. Activity makes his pain worse. He denies having any blood or black stools. He denies any lower extremity edema. He came into [facility] emergency center Temperature was 103.3 with tachycardia. His blood pressure eventually but dropped and he was given 2 L of IV fluid along with Tylenol and Motrin. He has not required vasopressors. Wood catheter was placed with return of 900 mL. Patient was given dose of ceftriaxone followed by Unasyn. Urinalysis was positive for urinary tract infection. Patient was admitted into the intensive care unit. Dr. ramos was placed on for intensive care management. Dr. Gandhi has evaluated the patient with recommendations to maintain Wood catheter until follow-up in the office. Patient has been hemodynamically stable and will be transferred to selective care today. Blood culture is showing gram-negative bacilli and consult with infectious disease has been added. Repeat blood cultures ordered. Patient is maintained on Zosyn. 02/02: Blood culture positive for ESBl E Coli. Repeat blood culture is status received. Urine culture is in progress. Antibiotics have been switched to meropenem by Dr. Gama. Patient states he is not feeling as good as yesterday. He states he did sleep better during the night. He complains of generalized weakness. He complains of a headache and his eyes hurt in the back. He is awaiting a bed on the [facility] floor. He does continue to have some abdominal pain which is now in the left lower quadrant. His last bowel movement was yesterday. He denies any known blood in his urine. He denies any flank pain. CAT scan of the abdomen and pelvis has been ordered. Patient does have chronic problems with intermittent constipation. INR is 1.3 and Coumadin 10 mg ordered for tonight, white count is down to 17.9. Patient has been afebrile. Patient is waiting for [facility] bed. 02/03: He is feeling much better today and his agrees that he looks much improved. CAT scan of the abdomen and pelvis revealed air in the urinary bladder, possibly extending into the urinary bladder wall anteriorly or, which could relate to emphysematous cystitis or more likely due to recent instrumentation with Wood catheter. Wood catheter is noted to be low lying situated just above the prosthetic portion of the urethra. No air in the renal collecting systems to suggest emphysematous pyelitis. No nephric fluid collection to suggest abscess. Abdominal pain is improved today. Dr. Gama is recommended midline were antibiotics. Midline will be ordered for today as repeat blood culture is showing no growth at 24 hours. Patient has been hemodynamically stable and is waiting for [facility] bed. Wood catheter remains in place and urine output has been adequate. 02/04: Patient continued to improve and feels more energetic today was up walking in the hallway on his own denying chest pain shortness breath nausea vomiting abdominal pain dizziness lightheadedness or blurry vision. We will continue with current antibiotics, follow up with infectious diseases recommendation regarding discharge planning, continue monitoring vital signs closely and repeat blood work in the morning encourage ambulation and encourage oral intake. Plan discussed with patient and his at the bedside who are both agreeable to the current treatment plan and we will consider discharging patient based on clinical progress 02/05: Patient is complaining of rash on his right face and stated that that developed overnight on examination I seems to be vesicles on the base of the somatic skin changes tender to touch with open sores uncertain spots. I have discussed with the patient and later with infectious disease the diagnosis of shingles and we will apply contact isolation. Patient's on Valtrex 1000 mg 3 times daily for 7 days continue with skin care and hygiene I would like to continue with current IV antibiotics and consider discharging patients home with antibiotics tomorrow morning per infectious disease recommendation. Plan discussed with patient and his and both agreeable to the current treatment plan 02/06: Neurology was consulted due to to episodes of involuntary left arm and left leg movements lasted less than a minute. CAT scan of the brain showed no acute intracranial abnormalities. There was small vessel ischemic changes and age-appropriate cerebral atrophy. EEG was within normal limits. No epileptiform discharges seen. Patient will be discharged home and continue IV antibiotics managed by Dr. Gama. Discharge diagnoses: 1. Sepsis, septic shock secondary to ESBL E. coli urinary tract infection and recent surgical manipulation and Wood catheter 2. Acute metabolic encephalopathy secondary to sepsis, resolved. 3. Benign prostatic hypertrophy status post greenlight procedure. 4. Chronic atrial fibrillation. 5. Obstructive sleep apnea. 6. Daily alcohol use. 7. Remote history of tobacco use, stable. 8. Shingles, right side of face 9. Focal seizures. Discharge plan: home with IV antibiotics daily through the [facility] Impression and plan of care have been directed as dictated by the signing physician. Kortney Alvarez nurse practitioner acting as scribe for signing physician. Patient Condition at Discharge: Good Plan - Discharge Summary Discharge Rx Participant: No New Discharge Prescriptions: New Ertapenem [INVanz] 1 gm IVPB Q24H #14 bag valACYclovir HCL [Valtrex] 1,000 mg PO TID #21 tablet No Action Warfarin [Coumadin] 5 mg PO SUTUTHFR Tamsulosin [Flomax] 0.4 mg PO DAILY Metoprolol Tartrate [Lopressor] 12.5 mg PO DAILY Fish Oil/Dha/Epa [Fish Oil 1,200 mg Fish Oil] 1 cap PO DAILY Glucosam/Tom-Msm1/C/Caleb/Bosw [Glucosamine-Chondroitin Tablet] 1 tab PO DAILY Warfarin [Coumadin] 7.5 mg PO MOWESA Discharge Medication List Fish Oil/Dha/Epa [Fish Oil 1,200 mg Fish Oil] 1 cap PO DAILY 12/06/17 [History] Metoprolol Tartrate [Lopressor] 12.5 mg PO DAILY 12/06/17 [History] Tamsulosin [Flomax] 0.4 mg PO DAILY 12/06/17 [History] Warfarin [Coumadin] 5 mg PO SUTUTHFR 12/06/17 [History] Glucosam/Tom-Msm1/C/Caleb/Bosw [Glucosamine-Chondroitin Tablet] 1 tab PO DAILY 12/22/17 [History] Warfarin [Coumadin] 7.5 mg PO MOWESA 01/31/18 [History] Ertapenem [INVanz] 1 gm IVPB Q24H #14 bag 02/06/18 [Rx] valACYclovir HCL [Valtrex] 1,000 mg PO TID #21 tablet 02/06/18 [Rx] Follow up Appointment(s)/Referral(s): Ernie Cabrales MD [STAFF PHYSICIAN] - 1 Week (Catheter Removal at 8:20 AM on ) Altaf Duff MD [Primary Care Provider] - 1 Week (Appointment for 9:30 AM on 02/17. ) Estrella Gama MD [STAFF PHYSICIAN] - 1 Week (Please call and schedule appointment. ) Ambulatory/Diagnostic Orders: Basic Metabolic Panel [LAB.AMB] Location: None Selected Complete Blood Count w/diff [LAB.AMB] Location: None Selected Prothrombin Time INR [LAB.AMB] Location: None Selected Patient Instructions/Handouts: Urinary Tract Infection in Men (DC), Wood Catheter Placement and Care (DC) Activity/Diet/Wound Care/Special Instructions: pt is set up to come to the hospital to [facility] infusion tomorrow 02/07/18 at 2: 30pm for his infusion of INVanz Discharge Disposition: HOME WITH HOME HEALTH SERVICES
== END 2018-02-06 19:44 | disposition home or self-care (01) | DRG 698 ==
LOC: EC 08:53 → 2SICU 14:07
PROVIDERS: ADMIT Internal Medicine Geriatric Medicine; ATTEND Internal Medicine Geriatric Medicine
PROC: 05HF33Z Insertion of Infusion Device into Left Cephalic Vein, Percutaneous Approach (ICD-10-PCS; principal; 2018-02-03 12:30)
PROC: B54NZZA Ultrasonography of Left Upper Extremity Veins, Guidance (ICD-10-PCS; 2018-02-03 12:30)
DX: T83.511A Infection and inflammatory reaction due to indwelling urethral catheter, initial encounter (principal); A41.51 Sepsis due to Escherichia coli [E. coli]; G93.41 Metabolic encephalopathy; R65.21 Severe sepsis with septic shock; G40.89 Other seizures; N39.0 Urinary tract infection, site not specified; B02.9 Zoster without complications; G47.33 Obstructive sleep apnea (adult) (pediatric); I10 Essential (primary) hypertension; I48.2 Chronic atrial fibrillation; K59.00 Constipation, unspecified; R32 Unspecified urinary incontinence; R33.8 Other retention of urine; H53.8 Other visual disturbances; E66.9 Obesity, unspecified; Z68.35 Body mass index [BMI] 35.0-35.9, adult; Z16.12 Extended spectrum beta lactamase (ESBL) resistance; Z87.891 Personal history of nicotine dependence; Z79.01 Long term (current) use of anticoagulants; Z79.899 Other long term (current) drug therapy; Z88.1 Allergy status to other antibiotic agents; Z88.8 Allergy status to other drugs, medicaments and biological substances; Z87.440 Personal history of urinary (tract) infections; Z90.49 Acquired absence of other specified parts of digestive tract; Z82.49 Family history of ischemic heart disease and other diseases of the circulatory system; Z82.0 Family history of epilepsy and other diseases of the nervous system; Z84.2 Family history of other diseases of the genitourinary system; Z84.89 Family history of other specified conditions
CPT/HCPCS: 36415; 36569; 51702; 51798; 70450; 71046; 74177; 76937; 80048; 80053; 81001; 82550; 82553; 83605; 83735; 84484; 85025; 85027; 85610; 85730; 87040; 87077; 87086; 87186; 93005; 95816; 96361; 96365; 96366; 96367; 99285

== ENCOUNTER → 2018-11-07 | Outpatient (CLI) | payer MEDICARE ==
--- NOTE | 2018-11-07 11:15 | US ---
EXAMINATION TYPE: US venous doppler duplex LE RT DATE OF EXAM: 11/07/2018 10:48 AM COMPARISON: NONE CLINICAL HISTORY: 78-year-old male R22.41 SWELLING OF RT LEG. SIDE PERFORMED: Right TECHNIQUE: The lower extremity deep venous system is examined utilizing real time linear array sonog mervin with graded compression, doppler sonography and color-flow sonography. FINDINGS: VESSELS IMAGED: External Iliac Vein (EIV) Common Femoral Vein Deep Femoral Vein Greater Saphenous Vein * Femoral Vein Popliteal Vein Small Saphenous Vein * Proximal Calf Veins (* superficial vessels) Right Leg: Negative for DVT. In posterior right knee, possible fluid collection visualized = 4.3 x 3.7 x 1.7 cm IMPRESSION: 1. No evidence for DVT within the right lower extremity deep to the upper calf. 2. 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
== END | disposition home or self-care (01) ==
LOC: RADUSWWP 10:29
PROVIDERS: ATTEND Internal Medicine Geriatric Medicine
DX: M71.21 Synovial cyst of popliteal space [Baker], right knee (principal)

== ENCOUNTER → 2019-08-09 | Outpatient (CLI) | payer MEDICARE ==
--- NOTE | 2019-08-09 11:27 | MR ---
EXAMINATION TYPE: MR knee LT wo con DATE OF EXAM: 08/09/2019 COMPARISON: NONE HISTORY: Lt knee pain, S/P slip and fall, previous hx of injuries TECHNIQUE: Multiplanar, multisequence images of the knee is performed without IV contrast. FINDINGS: MEDIAL MENISCUS: Increased signal anterior horn. Truncated appearance with abnormal signal posterior horn, bucket-handle type tear is felt present with double PCL sign. Marked medial extrusion medial me niscus coronal image 25. LATERAL MENISCUS: Increased signal throughout the anterior and posterior horns extends through the c entral body does not definitively extend to articular surface. CRUCIATE LIGAMENTS: Nonvisualization of the anterior cruciate ligament consistent with full-thickness tear. Tiny remnant portion identified posterior distal femoral level sagittal image 17. COLLATERAL LIGAMENTS: The medial collateral ligament and lateral collateral ligament complex are inta ct. Medial extrusion medial meniscus causes mass effect on MCL with surrounding fluid and partial tea ring if there is increased signal noted. EXTENSOR MECHANISM: Visualized quadriceps and patellar tendons are intact. EFFUSION: Large suprapatellar joint effusion. POPLITEAL CYST: No popliteal/cobos cyst. TRICOMPARTMENT SPACES: Moderate to severe tricompartment joint space loss and spurring. CARTILAGE: Significant chondromalacia patella with thinning of articular cartilage along the entire p osterior patellar pole. Some areas of full-thickness loss are seen. Marked thinning of articular cart ilage medial tibiofemoral compartment. BONE MARROW SIGNAL: Areas of heterogeneous diminished T1 and increased T2 signal medial tibial femora l compartment at site of joint space narrowing and cartilaginous loss. OTHER: Moderate subcutaneous edema anteriorly over the patella suspected soft tissue injury. Addition al moderate subcutaneous edema laterally. IMPRESSION: 1. Full-thickness ACL tear. 2. Full-thickness bucket-handle tear posterior horn of medial meniscus. 3. At least intrasubstance tear anterior horn medial meniscus. 4. At least intrasubstance tear throughout the lateral meniscus. 5. Large suprapatellar joint effusion. 6. Moderate to severe tricompartment degenerative changes as detailed above. 7. Mild to moderate MCL sprain injury.
== END | disposition home or self-care (01) ==
LOC: RADMRIMAIN 10:05
PROVIDERS: ATTEND Orthopaedic Surgery
DX: S83.512A Sprain of anterior cruciate ligament of left knee, initial encounter (principal); S83.212A Bucket-handle tear of medial meniscus, current injury, left knee, initial encounter; S83.242A Other tear of medial meniscus, current injury, left knee, initial encounter; S83.282A Other tear of lateral meniscus, current injury, left knee, initial encounter; M17.12 Unilateral primary osteoarthritis, left knee; S83.412A Sprain of medial collateral ligament of left knee, initial encounter

== ENCOUNTER → 2019-10-18 | Outpatient (CLI) | payer MEDICARE ==
--- NOTE | 2019-10-18 14:37 | XR ---
EXAMINATION TYPE: XR cervical spine comp DATE OF EXAM: 10/18/2019 COMPARISON: 11/09/2010 HISTORY: 79-year-old male M54.2, cervicalgia TECHNIQUE: 5 views FINDINGS: Multilevel facet and uncovertebral joint arthropathy. On the right, this results in mild bony neurofo raminal narrowing at C3-C4 and C4-C5. On the left, this results in mild bony neuroforaminal narrowing at C5-C6 and C6/C7, more mild to moderate at C3-C4. No predental space widening or prevertebral soft tissue swelling. Moderate degenerative disc disease throughout the mid and lower cervical spine. Jackie pected grade 1 anterolisthesis at C7-T1. Patient's shoulders obscure this region making assessment luz agee. Normal odontoid view. Heterotopic ossification along the back side of the C6 and C7 spinous pr ocesses unchanged from 2010. 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 There may be a grade 1 anterolist hesis at C7-T1. The patient's shoulders obscure this region limiting the assessment. Variable mild ne uroforaminal narrowing as outlined above.
== END | disposition home or self-care (01) ==
LOC: RADXRMAIN 11:28
PROVIDERS: ATTEND Internal Medicine Geriatric Medicine
DX: M48.061 Spinal stenosis, lumbar region without neurogenic claudication (principal); M43.16 Spondylolisthesis, lumbar region; M47.812 Spondylosis without myelopathy or radiculopathy, cervical region
CPT/HCPCS: 72050

== ENCOUNTER → 2021-08-18 | Outpatient (CLI) | payer MEDICARE ==
[2021-08-18 10:54] LABS: Partial Thromboplastin Time 27.9 sec (22.0-30.0); Prothrombin Time 11.3 sec (9.0-12.0)
[2021-08-18 15:19] LABS: HCT 46.6 % (39.6-50.0); HGB 15.2 g/dL (13.0-17.0); MCH 31.4 pg (27.0-32.0); MCHC 32.6 g/dL (32.0-37.0); MCV 96.3 fL (80.0-97.0); Mean Platelet Volume 10.7 fL (9.5-12.2); NRBC Per 100 WBC 0 /100 WBCS (0.0-0.0); Platelet Count 211 X 10*3/uL (140-440); RBC 4.84 X 10*6/uL (4.40-5.60); RDW 13.1 % (11.5-14.5)
[2021-08-18 15:34] LABS: African American GFR (CKD) 93.2 (60.0-200.0); Albumin 4.9 g/dL (3.8-4.9); Albumin/Globulin Ratio 2.58 (1.60-3.17); Anion Gap 11.8 mmol/L (10.00-18.00); BUN/Creat Ratio 17.67 Ratio (12.00-20.00); Blood Urea Nitrogen 15.9 mg/dL (9.0-27.0); Calcium 9.9 mg/dL (8.7-10.3); Carbon Dioxide 24.2 mmol/L (20.0-27.5); Globulin 1.9 g/dL (1.6-3.3); Non-African American GFR(CKD) 80.4 (60.0-200.0); Potassium 4.4 mmol/L (3.5-5.5); Total Bilirubin 1.1 mg/dL (0.30-1.20); Total Protein 6.8 g/dL (6.2-8.2)
[2021-08-18 17:28] LABS: Appearance,Urine Clear (Clear); Bacteria,Urine None Seen /HPF (None Seen); Bilirubin,Urine Negative (Negative); Blood,Urine Negative (Negative); Color,Urine Yellow (Yellow); Ketones,Urine Negative (Negative); Nitrite,Urine Negative (Negative); Specific Gravity,Urine 1.008 (1.001-1.030); Urobilinogen,Urine 0.2 (0.2,1.0)
== END | disposition home or self-care (01) ==
LOC: LABPAT 08:47
PROVIDERS: ATTEND Orthopaedic Surgery
DX: Z01.812 Encounter for preprocedural laboratory examination (principal)
CPT/HCPCS: 36415; 80053; 81001; 85027; 85610; 85730; 87070

== ENCOUNTER 2021-09-15 09:36 | Day surgery (SDC) | payer MEDICARE ==
[2021-09-10 14:57] VITALS: BMI 31.0
[~2021-09-15 09:36] MED LIST: ACETAMINOPHEN TAB 500 MG TAB PO PRN; DEXAMETHASONE SOD PHOSPHATE 4 MG/ML 1 ML VIAL IV ONE; GABAPENTIN 300 MG CAP PO PRN; LIDOCAINE 1% (10MG/ML) FOR IV START INTRADERMA PRN; MELOXICAM 7.5 MG TAB PO PRN; ONDANSETRON 4 MG/2 ML VIAL IVP ONE; ONDANSETRON 4 MG/2 ML VIAL IVP PRN; ROPIVACAINE/EPI/CLONIDINE/KET 50 ML SYRINGE MISCELLANE PRN; TRANEXAMIC ACID IN NACL,ISO-OS 1,000 MG in SALINE 1 100ML.BAG IVPB PRN
[2021-09-15] MEDS: LACTATED RINGERS 1,000 ML IV SCH (10:09)
[2021-09-15] MEDS ORDERED: MIDAZOLAM 2 MG/2 ML VIAL IVP ONE ×2 (10:45→11:01)
[2021-09-15] MEDS ORDERED: fentaNYL (PF) 50 MCG/ML 2 ML AMP IVP ONE (10:45)
[2021-09-15] MEDS ORDERED: HYDROmorphone 0.5 MG/0.5 ML SYRINGE IVP PRN ×2 (10:52)
[2021-09-15] MEDS ORDERED: MAGNESIUM HYDROXIDE 2,400 MG/10 ML CUP PO PRN (10:52)
[2021-09-15] MEDS ORDERED: bisacodyL 10 MG SUPP RECTAL PRN (10:52)
[2021-09-15] MEDS ORDERED: NA PHOS,M-B/NA PHOS,DI-BA 133 ML ENEMA RECTAL PRN (10:52)
[2021-09-15] MEDS ORDERED: ONDANSETRON 4 MG/2 ML VIAL IVP PRN ×2 (10:52→19:56)
[2021-09-15] MEDS ORDERED: NALOXONE 0.4 MG/ML 1 ML VIAL IV PRN (10:52)
[2021-09-15] MEDS ORDERED: HYDROmorphone (PF) 1 MG/ML ONE (11:01)
[2021-09-15] MEDS ORDERED: METOPROLOL TARTRATE 5 MG/5 ML VIAL IVP ONE (11:01)
[2021-09-15] MEDS ORDERED: SODIUM CHLORIDE 0.9% (PF) 10 ML VIAL ONE (11:01)
[2021-09-15] MEDS ORDERED: ROPIVACAINE 5 MG/ML 30 ML VIAL ONE (11:01)
[2021-09-15] MEDS ORDERED: PROPOFOL 10 MG/ML 20 ML VIAL IV ONE (11:01)
[2021-09-15] MEDS ORDERED: LIDOCAINE 2% INJ 20 MG/ML (2 ML VIAL) ONE (11:01)
[2021-09-15] MEDS ORDERED: fentaNYL (PF) 50 MCG/ML 2 ML AMP ONE (11:01)
[2021-09-15] MEDS ORDERED: TRANEXAMIC ACID IN NACL,ISO-OS 1,000 MG/100 ML BAG ONE (11:01)
[2021-09-15] MEDS ORDERED: ceFAZolin 1,000 MG in SODIUM CHLORIDE 0.9% 1,000 ML IRRIGATION ONE (11:04)
[2021-09-15] MEDS ORDERED: ROPIVACAINE 0.2%-NS ON-Q PUMP 1,090 MG, EMPTY PAIN BALL 1 EACH MISCELLANE PRN (11:17)
--- NOTE | 2021-09-15 11:18 | P.ANPRN ---
Procedure Note - Anesthesia - Nerve Block Performed Right Adductor Canal Time Out Performed: Yes (:44) Date of Procedure: 09/15/21 Procedure Start Time: Procedure Stop Time: Location of Patient: PreOp Indication: Acute Post-Operative Pain, Requested by Surgeon (Dr Eddie Lozada) Sedation Type: Sedate with meaningful contact maintained Preparation: Sterile Prep, Sterile Dressing Position: Supine Catheter: Indwelling Needle Types: Pajunk Needle Gauge: 21 Ultrasound used to visualize needle placement: Yes Ultrasound used to observe medication spread: Yes Injectate: 0.5% Ropivacaine (see comment for volume) (15cc) Blood Aspirated: No Pain Paresthesia on Injection Noted: No Resistance on Injection: Normal Image Stored and Saved: Yes Events: Uneventful and Well Tolerated
--- NOTE | 2021-09-15 11:20 | P.ANPRN ---
Procedure Note - Anesthesia - Nerve Block Performed Right iPack Time Out Performed: Yes Date of Procedure: 09/15/21 Procedure Start Time: 10:54 Procedure Stop Time: 11:02 Location of Patient: PreOp Indication: Acute Post-Operative Pain, Requested by Surgeon (Dr Eddie Lozada) Sedation Type: Sedate with meaningful contact maintained Preparation: Sterile Prep Position: Supine Catheter: None Needle Types: Pajunk Needle Gauge: 21 Ultrasound used to visualize needle placement: Yes Ultrasound used to observe medication spread: Yes Injectate: 0.5% Ropivacaine (see comment for volume) (15cc + 5cc PF Normal saline) Blood Aspirated: No Pain Paresthesia on Injection Noted: No Resistance on Injection: Normal Image Stored and Saved: Yes Events: Uneventful and Well Tolerated
--- NOTE | 2021-09-15 12:46 | P.OP ---
Date of Procedure: 09/15/21 Preoperative Diagnosis: Severe osteoarthritis right knee Postoperative Diagnosis: Severe osteoarthritis right knee Procedure(s) Performed: Right total knee arthroplasty Implants: [employer] Journey II CR Oxinium cruciate retaining femoral component size 9, right [employer] Journey nonporous tibial baseplate size 7, right [employer] Journey II, XLPE Deep Dished articular insert, size 10 mm, Size 7-8, right [employer] Journey Yasmin II resurfacing patellar component, oval, 38 mm All components were cemented using Palacos R bone cement The articulation is Oxinium on polyethylene Anesthesia: PASCALE Surgeon: Eddie Lozada Disability Liaison Officer #1: Linnea Salomon Estimated Blood Loss (ml): 30 Pathology: other (Bone and cartilage) Condition: stable Disposition: PACU Indications for Procedure: After failure of conservative treatment we discussed the surgical and nonsurgical treatment options at length. Patient wishes to proceed with a total knee arthroplasty. Complications specific to this procedure were discussed at length, including but not limited to infection, bleeding, stiffness, and nerve injury. Covid-19 was also discussed at length with the patient, and they are aware of the current policies and procedures. The patient was given the option of delaying surgery, but they elect to proceed knowing these risks. Patient is aware of all these complications and informed consent was obtained Operative Findings: The operative findings are consistent with severe osteoarthritis of the right knee Description of Procedure: Patient was seen in the preoperative area and the consent was reviewed and the operative site was marked with a skin marker. The patient verified the procedure and the operative site. An adductor canal pain catheter and an iPACK block was placed by anesthesia in the preoperative area. The patient was then brought to the operating room and given preoperative antibiotics intravenously. A gram of transexamic acid was given intravenously. A general anesthetic was administered by the anesthesia department. A tourniquet was placed on the upper thigh and the lower extremity was prepped with chlorhexidine and draped in usual sterile fashion. A universal timeout was then performed which confirmed the patient's name, surgical site, ALLERGIES, and consent. The lower extremity was then exsanguinated and tourniquet was inflated to 250 mmHg. A standard anterior midline approach to the knee was performed. The skin and subcutaneous tissue were sharply dissected down to the patellar tendon. A medial parapatellar arthrotomy was then performed. The knee was then extended, the patellar was everted, and the knee was again flexed. The infra-patellar fat pad was removed in order to enhance exposure. The anterior horns of both menisci were excised, and a release was performed to the posterior medial aspect of the knee. On gross visual inspection, there was complete loss of articular cartilage in the medial and patellofemoral joint spaces. There was also significant cartilage damage in the lateral compartment. There were multiple periarticular osteophytes globally about the knee which were then removed with a Ronguer. The femoral canal was then opened with the 9.5 mm intramedullary drill. The 8 mm intramedullary masood was then inserted into the femoral canal with the distal femoral cutting guide set for 5 of valgus. The distal femoral cutting block was then pinned in place. The intramedullary masood was then removed, and the distal femur was then cut. The cutting block was then removed and the cut was checked for symmetry. The resected bone was then measured to confirm the appropriate distal femoral resection. Next, the sizing guide was then placed and set for 3 external rotation based off of the epicondylar axis and Whitesides line. Pins were then placed and the drill holes, and the femur was sized with the sizing stylus. The pins were then removed, and the sizing guide was then removed. The spikes of the femoral block was then placed into the predrilled holes, and malleted into place. Two 45 mm pins were then placed into the fixation holes on the cutting block. An eunice wing was then used to ensure there would be no notching with the anterior cut. The anterior condyles were cut without notching. The anterior chord cut was then performed, followed by the posterior cut, posterior chamfer cut, and the anterior chamfer cut. The collateral ligaments were protected during the entire process. The cutting block was then removed. Any remaining bone and osteophytes were removed from the femur with a Ronguer. The femoral canal was plugged with autologous bone. Attention was then directed to the tibia. The remaining ACL was removed with a Ronguer, and the tibia was then gently subluxed forward with a large bent knee retractor. Any remaining menisci were excised. The posterior lateral corner was cauterized in order to coagulate the lateral geniculate artery. The extra medullary tibial cutting guide was then placed, set for the appropriate rotation, slope, and depth of resection. The proximal tibia cutting guide was then pinned in place. Proximal tibia was then cut and sized. The femoral trial was placed. A narrow saw blade was then used to remove the anterior intracondylar femoral bone. The CR notch trial was then placed. The tibial trial was placed with the appropriate-sized insert. The knee was able to fully extend and flex to 130 and was stable throughout all range of motion. The knee was then extended and the patella was everted. Patella was then measured, and then using an osteotomy guide, the patella was cut at the appropriate level. The patella was then measured and drilled and the patella trial was then placed. The knee was then taken through range of motion with the patella trial and the patella tracked normally using the no thumbs technique. The knee was then extended patella trial was then removed and the patella was everted. Knee was then flexed and lug holes were drilled through the femoral trial and the femoral trial was then removed. The tibial was then re-exposed, and the tibial broach guide was then pinned in place after it was set for the appropriate rotation to allow for the most coverage without overhang. The tibia was then reamed and broached. The cut surfaces of bone were then irrigated with pulsatile lavage. The knee was also irrigated with Irrisept solution. The components were then opened, the cement was mixed, and the components were then cemented in place. The cement was allowed to harden with the knee in full extension. After the cemented hardened, the tourniquet was released and hemostasis was obtained. A second gram of transexamic acid was given intravenously. The knee was again irrigated. The knee was again taken through range of motion and found to be stable throughout all range of motion of 0-130, and the patella tracked normally. The fascia was then closed with 0 Vicryl followed by #2 strata fix suture. The subcutaneous tissue was closed with 3-0 Vicryl and 3-0 strata fix. Exofin glue was used for the skin and placed with the knee in flexion. After the glue had dried, and Optafoam silver impregnated dressing was applied. The patient was then transferred to recovery room in stable condition. The medical assistant dermatology KRISTEN Mello was required due the complexity surgery and the need for a skilled ophthalmology surgical technician. She assisted in positioning, draping, retraction, and closure of the wound.
[2021-09-15] MEDS: fentaNYL (PF) 50 MCG/ML 2 ML AMP IV PRN ×3 (12:59→13:32)
--- NOTE | 2021-09-15 13:29 | XR ---
EXAMINATION TYPE: XR knee limited RT DATE OF EXAM: 09/15/2021 CLINICAL HISTORY: Right knee pain and arthritis status post total knee replacement. TECHNIQUE: Portable AP and crosstable lateral views of the right knee are obtained immediately posto peratively. COMPARISON: None FINDINGS: Metallic hardware from total right knee arthroplasty is seen and appears satisfactory in a lignment and position. There is evidence of recent surgery with diffuse subcutaneous gas and soft ti ssue swelling noted. Mild posterior arterial vascular calcification. IMPRESSION: METALLIC HARDWARE FROM TOTAL RIGHT KNEE ARTHROPLASTY IS SATISFACTORY IN ALIGNMENT.
[2021-09-15] MEDS ORDERED: HYDROmorphone 0.5 MG/0.5 ML SYRINGE IVP ONE (13:45)
[2021-09-15] MEDS: SODIUM CHLORIDE 0.9% 1,000 ML IV SCH (14:38)
[2021-09-15] MEDS: FINASTERIDE 5 MG TAB PO SCH (20:11)
[2021-09-15] MEDS: HYDROmorphone 0.5 MG/0.5 ML SYRINGE IVP PRN (20:12)
[2021-09-15] MEDS: HYDROcodone/APAP 7.5-325MG 1 EACH TAB PO PRN (20:12)
[2021-09-15] MEDS: SENNOSIDES-DOCUSATE SODIUM 1 EACH TAB PO SCH (20:12)
--- NOTE | 2021-09-15 22:37 | P.CONS ---
History of Present Illness - Reason for Consult Consult date: 09/15/21 medical management, A. fib, hypertension, hyperlipidemia and history of obs Requesting physician: Eddie Lozada - Chief Complaint post right total knee arthroplasty. - History of Present Illness HISTORY OF PRESENT ILLNESS 80-year-old male one of my office patient with past medical history of A. fib, hypertension, prostate disorders, obstructive sleep apnea, history of ESBL with her current infection in the past who had suffered from severe arthritis of the right knee for the last few years become much worse this winter ended up having significant restriction to motion and mobility changes social life and activity significantly. Patient had seen orthopedic and after failure to conservative management decided to go for intervention with total knee arthroplasty. Surgery was done today successfully patient developed to have slight lightheadedness and dizziness afterward specially with any type of mobility. Patient was to be continue on hydration and continue to withhold any opiate Or any pain meds at this point unless needed. REVIEW OF SYSTEMS Constitutional: No fever, no chills, no night sweats. No weight change. No weakness, fatigue or lethargy. No daytime sleepiness. EENT: No headache. No blurred vision or double vision, no loss of vision. No loss of Hearing, no ringing in the ears, no dizziness. No nasal drainage or congestion. No epistaxis. No sore throat. Lungs: No shortness of breath, cough, no sputum production. No wheezing. Cardiovascular: No chest pain, no lower extremity edema. No palpitations. No paroxysmal nocturnal dyspnea. No orthopnea. No lightheadedness or dizziness. No syncopal episodes. Abdominal: No abdominal pain. No nausea, vomiting. No diarrhea. No co nstipation. No bloody or tarry stools.. No loss of appetite. Genitourinary: No dysuria, increased frequency, urgency. No urinary retention. Musculoskeletal: No myalgias. No muscle weakness, no gait dysfunction, no frequent falls. No back pain. No neck pain.right knee incision looks fine with no hemorrhage. Integumentary: No wounds, no lesions. No rash or pruritus. No unusual bruising. No change in hair or nails. Neurologic: No aphasia. No facial droop. No change in mentation. No head injury. No headache. No paralysis. No paresthesia.mild lightheadedness and dizziness. Psychiatric: No depression. No anxiety. No mood swings. Endocrine: No abnormal blood sugars. No weight change. No excessive sweating or thirst. No cold intolerance. SOCIAL HISTORY he quit smoking 30 years ago used to smoke a pack a day for over 20 years, no code abuse, he is retired, and lives with his he use CPAP for obstructive sleep apnea. FAMILY HISTORY his father from dementia at age 72, mother dying in her 80s from heart disease, patient had 2 children with history of hypertension. PHYSICAL EXAMINATION Gen: This is overweight slightly lightheaded at the time sitting in bed does not look in any respiratory distress. HEENT: Head is atraumatic, normocephalic. Pupils equal, round. Sclerae is anicteric. NECK: Supple. No JVD. No lymphadenopathy. No thyromegaly. LUNGS: decreased for some relative final climb no crackles or wheezes. HEART: Irregular rate and rhythm. No murmur. ABDOMEN: Soft. Bowel sounds are present. No masses. No tenderness. EXTREMITIES: incision in the right knee Patient is able to wiggle his toesno sign of bleeding NEUROLOGICAL: Patient is awake, alert and oriented x3. Cranial nerves 2 through 12 are grossly intact. ASSESSMENT AND PLAN 1.post right total knee arthroplasty: Stable post surgery continue to have slight effect of anesthesia with mild lightheadedness and dizziness we watch patient hemodynamic status carefully meanwhile his blood pressure has been mildly elevated, pulse rate slightly fluctuated otherwisedoing well stable. 2 history of A. fib: Has been on Eliquis which will be resumed tomorrow we'll continue patient on metoprolol tartrate 12.5 mg twice a day. 3 hypertension: Stable on metoprolol tartrate. 4 BPH with no sign of urinary obstruction, remain on Proscar if needed will add Flomax. 5 chronic pain syndrome: With severe degenerative arthritis along with lower lumbar disease, patient remain on smaller dose of hydrocodone on as needed basis. 6 GI prophylaxis: Patient be continue on Pepcid 20 mg daily. 7 DVT prophylaxis: Early mobilization, knee-high TYE hose and start Eiquis by tomorrow morning. 8 CODE STATUS: Full code. Ex Dr. Lozada thank you very much for the consult if I can be any further help to please let me know. Past Medical History Past Medical History: Atrial Fibrillation, Hypertension, Prostate Disorder, Sleep Apnea/CPAP/BIPAP Additional Past Medical History / Comment(s): past BPH and had greenlight laser treatment at [place], uses cpap, constipation, History of Any Multi-Drug Resistant Organisms: ESBL Year Discovered:: 01/31/18 MDRO Source:: ESBL URINE, BLOOD Past Surgical History: Cholecystectomy, Orthopedic Surgery, Prostate Surgery Additional Past Surgical History / Comment(s): 01/25/18 prostrate greenlight laser treatment at [place], right first digit top phlange removed, bilateral knee arthroscopy, Past Anesthesia/Blood Transfusion Reactions: Postoperative Nausea & Vomiting (PONV) Past Psychological History: No Psychological Hx Reported Additional Psychological History / Comment(s): . Smoking Status: Former smoker Past Alcohol Use History: Daily Additional Past Alcohol Use History / Comment(s): quit smoking 30 yrs ago Past Drug Use History: None Reported - Past Family History Father Family Medical History: Dementia Additional Family Medical History / Comment(s): Father at age 72 from heart failure with history of Alzheimer dementia. Mother Family Medical History: No Reported History Additional Family Medical History / Comment(s): . Brother(s) Additional Family Medical History / Comment(s): Patient has 3 brothers. One with history of prostate cancer, 1 with benign prostatic hypertrophy, and one with unknown medical problems. Sister(s) Additional Family Medical History / Comment(s): Patient has one sister that at age 9 from some type of congenital brain disorder, unknown type. Patient has 2 daughters and 1 son with no major medical problems. Medications and Allergies Home Medications Medication Instructions Recorded Confirmed Type Metoprolol Tartrate [Lopressor] 12.5 mg PO DAILY 12/06/17 09/10/21 History Finasteride [Proscar] 5 mg PO HS 02/26/18 09/10/21 History Apixaban [Eliquis] 5 mg PO BID 09/10/21 09/10/21 History Ascorbic Acid [Vitamin C] 500 mg PO DAILY 09/10/21 09/10/21 History Cholecalciferol (Vitamin D3) 125 mcg PO DAILY 09/10/21 09/10/21 History [Vitamin D3 (125 MCG = 5,000 IU)] Tylenol(Dose Unknown) 1 tab PO DIRECTED PRN 09/10/21 09/10/21 History HYDROcodone/APAP 7.5-325MG [[place] 1 - 2 tab PO Q6H PRN #32 tab 09/15/21 Rx 7.5-325] Sennosides [Senokot] 2 tab PO DAILY PRN #60 tablet 09/15/21 Rx Allergies Allergy/AdvReac Type Severity Reaction Status Date / Time terbinafine [From Lamisil] Allergy Rash/Hives Verified 09/15/21 09:52 sulfamethoxazole AdvReac Unknown Verified 09/15/21 09:52 [From Bactrim] trimethoprim [From Bactrim] AdvReac Unknown Verified 09/15/21 09:52 Physical Exam Vitals: Vital Signs Temp Pulse Pulse Pulse Resp BP BP 09/15/21 15:36 85 175/99 09/15/21 15:22 80 150/88 09/15/21 15:06 74 151/100 09/15/21 14:51 83 158/83 09/15/21 14:36 97.6 F 85 21 159/91 09/15/21 14:00 72 16 132/65 09/15/21 13:45 87 16 138/73 09/15/21 13:30 73 16 168/82 09/15/21 13:15 78 16 159/86 09/15/21 13:00 82 18 144/97 09/15/21 12:46 97.9 F 75 10 L 142/92 09/15/21 10:59 82 16 110/64 09/15/21 09:56 97.8 F 80 20 140/85 Pulse Ox 09/15/21 15:36 96 09/15/21 15:22 97 09/15/21 15:06 93 L 09/15/21 14:51 88 L 09/15/21 14:36 99 09/15/21 14:00 94 L 09/15/21 13:45 92 L 09/15/21 13:30 97 09/15/21 13:15 94 L 09/15/21 13:00 98 09/15/21 12:46 98 09/15/21 10:59 95 09/15/21 09:56 99 Intake and Output 09/15/21 09/15/21 09/15/21 06:59 14:59 22:59 Intake Total 1151 220 Output Total 30 Balance 1121 220 Intake: IV 1151 Oral 220 Output: Estimated Blood Loss 30 Other: Weight 108.6 kg
[2021-09-16] MEDS: SODIUM CHLORIDE 0.9% 1,000 ML IV SCH ×2 (01:18→09:45)
[2021-09-16] MEDS: HYDROcodone/APAP 7.5-325MG 1 EACH TAB PO PRN ×4 (04:10→20:15)
[2021-09-16] MEDS: HYDROmorphone 0.5 MG/0.5 ML SYRINGE IVP PRN ×2 (04:10→20:16)
[2021-09-16] MEDS: LACTATED RINGERS 1,000 ML IV SCH (06:00)
--- NOTE | 2021-09-16 07:05 | P.PN ---
Progress Note - Text Progress Note Date: 09/16/21 Postoperative day # 1 status post total knee arthroplasty, and adductor canal catheter placed for postoperative analgesia, currently at ropivacaine 0.2% 8 mL per hour and continuous infusion, visual analogue scale is 3/10, patient using oral pain medication for breakthrough pain. Assessment and plan= Acute postoperative pain, adductor canal catheter for pain control, pain is well controlled we'll continue the same management.
[2021-09-16] MEDS: APIXABAN 5 MG TAB PO SCH ×2 (07:33→22:46)
[2021-09-16] MEDS: METOPROLOL TARTRATE 12.5 MG TAB PO SCH (07:33)
[2021-09-16] MEDS: CHOLECALCIFEROL 125 MCG (5000 IU) TABLET PO SCH (07:33)
[2021-09-16] MEDS ORDERED: APIXABAN 5 MG TAB PO SCH (09:00)
[2021-09-16 09:12] LABS: Basophils # (A) 0.02 X 10*3/uL (0.00-0.10); Basophils % (A) 0.2 %; Eosinophils # (A) 0.02 X 10*3/uL (0.04-0.35); Eosinophils % (A) 0.2 %; HCT 38.3 % (39.6-50.0); HGB 12.6 g/dL (13.0-17.0); Immature Grans, Automated 0.4 %; Lymphocytes # (A) 0.91 X 10*3/uL (0.90-5.00); Lymphocytes % (A) 7.8 %; MCH 31.9 pg (27.0-32.0); MCHC 32.9 g/dL (32.0-37.0); Mean Platelet Volume 10.8 fL (9.5-12.2); Monocytes # (A) 1.19 X 10*3/uL (0.20-1.00); Monocytes % (A) 10.2 %; NRBC Per 100 WBC 0 /100 WBCS (0.0-0.0); Neutrophils % (A) 81.2 %; Platelet Count 165 X 10*3/uL (140-440); RBC 3.95 X 10*6/uL (4.40-5.60); RDW 12.5 % (11.5-14.5); WBC 11.69 X 10*3/uL (4.50-10.00)
--- NOTE | 2021-09-16 09:54 | P.DS ---
Providers Date of admission: 09/16/21 07:30 Expected date of discharge: 09/16/21 Attending physician: Eddie Lozada Consults: 09/15/21 10:52 Consult Physician Routine Consulting Provider: Altaf Duff Reason/Comments: medical management Do you want consulting provider notified?: Yes Primary care physician: Altaf Duff [place] [facility] Course: This is an 80-year-old male who has been followed in our office by Dr. Lozada for continued complaints of right knee pain due to right knee osteoarthritis. Treatment options were discussed, and patient elected to undergo a right total knee arthroplasty. Patient was seen pre-operatively by Dr. Duff and cleared for surgery. Patient underwent a right total knee arthroplasty on 09/15/21. The procedure was performed without complication or sequelae. The patient is doing fairly well postoperatively. Vital signs and labs are stable on postoperative day #1. Patient was examined bedside today. Patient states he is overall doing very well and the pain in his right knee is well-controlled. He has been ambulating with a walker with minimal assistance. Patient has been working with physical therapy and passed physical therapy yesterday. Patient is tolerating his diet well. He is voiding with issues. Patient is comfortable being discharged home today. Patient denies chest pain, shortness of breath, nausea, vomiting, fevers, chills. On examination, the patient is sitting up in bed in no apparent distress. He is alert and orientated 3. On inspection of the right knee, there is a clean, dry, intact Optifoam dressing in place. There is no significant bleeding or drainage to the dressing. Patient has good strength and ROM of the right ankle and toes. Motor and sensory function is intact of the right lower extremity. The dorsalis pedis pulse is easily palpable, the right lower extremity is warm and well perfused with brisk capillary refill. Calf is soft and non-tender to palpation. Patient is discharged home with home health care today in good condition, pending medical clearance. Patient will follow-up with Dr. Lozada in the office in 2 weeks. Please see med rec for accurate list of discharge medication. Plan - Discharge Summary Discharge Rx Participant: Yes New Discharge Prescriptions: New HYDROcodone/APAP 7.5-325MG [[place] 7.5-325] 1 - 2 tab PO Q6H PRN #32 tab PRN Reason: Pain Sennosides [Senokot] 2 tab PO DAILY PRN #60 tablet PRN Reason: Constipation No Action Metoprolol Tartrate [Lopressor] 12.5 mg PO DAILY Finasteride [Proscar] 5 mg PO HS Ascorbic Acid [Vitamin C] 500 mg PO DAILY Cholecalciferol (Vitamin D3) [Vitamin D3 (125 MCG = 5,000 IU)] 125 mcg PO DAILY Apixaban [Eliquis] 5 mg PO BID Tylenol(Dose Unknown) 1 tab PO DIRECTED PRN PRN Reason: pain Discharge Medication List Metoprolol Tartrate [Lopressor] 12.5 mg PO DAILY 12/06/17 [History] Finasteride [Proscar] 5 mg PO HS 02/26/18 [History] Apixaban [Eliquis] 5 mg PO BID 09/10/21 [History] Ascorbic Acid [Vitamin C] 500 mg PO DAILY 09/10/21 [History] Cholecalciferol (Vitamin D3) [Vitamin D3 (125 MCG = 5,000 IU)] 125 mcg PO DAILY 09/10/21 [History] Tylenol(Dose Unknown) 1 tab PO DIRECTED PRN 09/10/21 [History] HYDROcodone/APAP 7.5-325MG [[place]and[place] 7.5-325] 1 - 2 tab PO Q6H PRN #32 tab 09/15/21 [Rx] Sennosides [Senokot] 2 tab PO DAILY PRN #60 tablet 09/15/21 [Rx] Follow up Appointment(s)/Referral(s): Eddie Lozada DO [Doctor of Osteopathic Medicine] - 2 Weeks Activity/Diet/Wound Care/Special Instructions: Weightbearing as tolerated with a walker. CPM 5-6h daily as tolerated. Leave dressing intact. Dressing may be removed by home care nurse or by patient in 7 days. Then change dressing twice daily until follow up. May shower with initial dressing intact and after removal. If dressing become saturated, please remove. Recommend use of compression stockings daily until follow up to help prevent swelling and blood clots. May remove at night before sleeping. Please resume Eliquis. Please follow up with [facility] and call with any questions or concerns, .
--- NOTE | 2021-09-16 10:16 | P.PN ---
Subjective Progress Note Date: 09/16/21 HISTORY OF PRESENT ILLNESS 80-year-old male one of my office patient with past medical history of A. fib, hypertension, prostate disorders, obstructive sleep apnea, history of ESBL with her current infection in the past who had suffered from severe arthritis of the right knee for the last few years become much worse this winter ended up having significant restriction to motion and mobility changes social life and activity significantly. Patient had seen orthopedic and after failure to conservative management decided to go for intervention with total knee arthroplasty. Surgery was done today successfully patient developed to have slight lightheadedness and dizziness afterward specially with any type of mobility. Patient was to be continue on hydration and continue to withhold any opiate Or any pain meds at this point unless needed. 09/16: Patient states that he had a rough night with nausea and dry heaves. He was able to urinate this morning with urinal. Pain is present and he will be working with PT and OT for the first time this morning. Patient resumed back on eliquis. He has been afebrile, heart rate 82, blood pressure 120/67, pulse ox 97% on room air. WBC 11.6 and hemoglobin 12.6. Patient is scheduled for discharge home today. Medication reconciliation has been reviewed. REVIEW OF SYSTEMS Constitutional: No fever, no chills, no night sweats. No weight change. No weakness, fatigue or lethargy. No daytime sleepiness. EENT: No headache. No blurred vision or double vision, no loss of vision. No loss of Hearing, no ringing in the ears, no dizziness. No nasal drainage or congestion. No epistaxis. No sore throat. Lungs: No shortness of breath, cough, no sputum production. No wheezing. Cardiovascular: No chest pain, no lower extremity edema. No palpitations. No paroxysmal nocturnal dyspnea. No orthopnea. No lightheadedness or dizziness. No syncopal episodes. Abdominal: No abdominal pain. No nausea, vomiting. No diarrhea. No constipation. No bloody or tarry stools.. No loss of appetite. Genitourinary: No dysuria, increased frequency, urgency. No urinary retention. Musculoskeletal: No myalgias. No muscle weakness, no gait dysfunction, no frequent falls. No back pain. No neck pain.right knee incision lightheadedness and dizziness has resolved. looks fine with no hemorrhage. Integumentary: No wounds, no lesions. No rash or pruritus. No unusual bruising. No change in hair or nails. Neurologic: No aphasia. No facial droop. No change in mentation. No head injury. No headache. No paralysis. No paresthesia.mild lightheadedness and dizziness. Psychiatric: No depression. No anxiety. No mood swings. Endocrine: No abnormal blood sugars. No weight change. No excessive sweating or thirst. No cold intolerance. PHYSICAL EXAMINATION Gen: This is overweight slightly lightheaded at the time sitting in bed does not look in any respiratory distress. HEENT: Head is atraumatic, normocephalic. Pupils equal, round. Sclerae is anicteric. NECK: Supple. No JVD. No lymphadenopathy. No thyromegaly. LUNGS: decreased for some relative final climb no crackles or wheezes. HEART: Irregular rate and rhythm. No murmur. ABDOMEN: Soft. Bowel sounds are present. No masses. No tenderness. EXTREMITIES: incision in the right knee Patient is able to wiggle his toesno sign of bleeding NEUROLOGICAL: Patient is awake, alert and oriented x3. Cranial nerves 2 through 12 are grossly intact. ASSESSMENT AND PLAN 1.post right total knee arthroplasty: Stable post surgery continue to have slight effect of anesthesia with mild lightheadedness and dizziness we watch patient hemodynamic status carefully meanwhile his blood pressure has been mildl y elevated, pulse rate slightly fluctuated otherwisedoing well stable. 2 history of A. fib: Has been on Eliquis which will be resumed tomorrow we'll continue patient on metoprolol tartrate 12.5 mg twice a day. 3 hypertension: Stable on metoprolol tartrate. 4 BPH with no sign of urinary obstruction, remain on Proscar. 5 chronic pain syndrome: With severe degenerative arthritis along with lower lumbar disease, patient remain on smaller dose of hydrocodone on as needed basis. 6 GI prophylaxis: Patient be continue on Pepcid 20 mg daily. 7 DVT prophylaxis: Early mobilization, knee-high TYE hose and start Eiquis. 8 CODE STATUS: Full code. Dr. Lozada thank you very much for the consult if I can be any further help to please let me know. Impression and plan of care have been directed as dictated by the signing physician. Kortney Alvarez nurse practitioner acting as scribe for signing physician. Objective - Vital Signs Vital signs: Vital Signs Temp 98.2 F 09/16/21 02:00 Pulse 75 09/16/21 02:00 Resp 16 09/16/21 02:00 BP 133/69 09/16/21 02:00 Pulse Ox 97 09/16/21 02:00 FiO2 Intake & Output 09/15/21 09/16/21 09/16/21 18:59 06:59 18:59 Intake Total 1371 Output Total 30 700 Balance 1341 -700 Weight 108.6 kg Intake: IV 1151 Oral 220 Output: Urine 700 Post Void Residual 0 Estimated Blood Loss 30 - Labs CBC & Chem 7: 09/16/21 05:27
[2021-09-16] MEDS ORDERED: TAMSULOSIN 0.4 MG CAP.ER.24H PO STA (12:42)
[2021-09-16] MEDS ORDERED: TAMSULOSIN 0.4 MG CAP.ER.24H PO SCH (18:30)
[2021-09-16] MEDS: FINASTERIDE 5 MG TAB PO SCH (20:15)
[2021-09-16] MEDS: SENNOSIDES-DOCUSATE SODIUM 1 EACH TAB PO SCH (20:16)
[2021-09-16] MEDS: TAMSULOSIN 0.4 MG CAP.ER.24H PO SCH (20:17)
[2021-09-17] MEDS: HYDROcodone/APAP 7.5-325MG 1 EACH TAB PO PRN ×3 (02:16→14:23)
[2021-09-17] MEDS: HYDROmorphone 0.5 MG/0.5 ML SYRINGE IVP PRN ×2 (02:16→06:34)
[2021-09-17] MEDS: SODIUM CHLORIDE 0.9% 1,000 ML IV SCH (05:07)
[2021-09-17] MEDS: LACTATED RINGERS 1,000 ML IV SCH (06:23)
[2021-09-17 08:09] VITALS: BP 124/67; PULSE 87; RESP 16; TEMP 97.9
[2021-09-17] MEDS: APIXABAN 5 MG TAB PO SCH (08:31)
[2021-09-17] MEDS: CHOLECALCIFEROL 125 MCG (5000 IU) TABLET PO SCH (08:31)
[2021-09-17] MEDS: TAMSULOSIN 0.4 MG CAP.ER.24H PO SCH (08:31)
[2021-09-17] MEDS: METOPROLOL TARTRATE 12.5 MG TAB PO SCH (08:31)
--- NOTE | 2021-09-17 09:57 | P.DS ---
Providers Date of admission: 09/16/21 07:30 Expected date of discharge: 09/17/21 Attending physician: Eddie Lozada Consults: 09/15/21 10:52 Consult Physician Routine Consulting Provider: Altaf Duff Consult Reason/Comments: medical management Do you want consulting provider notified?: Yes 09/16/21 17:46 Consult Physician Routine Consulting Provider: Ernie aCbrales Consult Reason/Comments: urinary retention Do you want consulting provider notified?: Yes Primary care physician: Altaf Duff - Discharge Diagnosis(es) (1) Osteoarthritis of right knee Current Visit: Yes Status: Acute (2) Status post total right knee replacement Current Visit: Yes Status: Acute Hospital Course: This is an 80-year-old male with known history of degenerative arthritis of the right knee. The patient presented for evaluation as an outpatient. After discussion and consideration patient elects to proceed with total knee arthroplasty. The patient is seen preoperatively by Dr. Lozada and medically cleared for surgery by their primary care physician. Patient is [facility] to [facility] on 09/15/2021 for total knee arthroplasty. The procedure is performed without complication or sequelae. The patient is doing well postoperatively. Labs and vital signs are stable on day of discharge. Patient has been evaluated by urology and will follow-up for this as an outpatient. On day of discharge patient's knee incision is healing well. There is minimal erythema. There is mild-moderate bloody drainage noted at this time. There is minimal soft tissue swelling to the knee. Patient has full foot and ankle motion without difficulty or pain. Calf is soft and nontender to palpation. Neurovascular status to the right lower extremity is intact. Patient is discharged home in good condition. Please see med rec for accurate list of home medications. Plan - Discharge Summary Discharge Rx Participant: Yes New Discharge Prescriptions: New HYDROcodone/APAP 7.5-325MG [[place] 7.5-325] 1 - 2 tab PO Q6H PRN #32 tab PRN Reason: Pain Sennosides [Senokot] 2 tab PO DAILY PRN #60 tablet PRN Reason: Constipation Tamsulosin [Flomax] 0.4 mg PO BID #60 cap Continue Metoprolol Tartrate [Lopressor] 12.5 mg PO DAILY Finasteride [Proscar] 5 mg PO HS Ascorbic Acid [Vitamin C] 500 mg PO DAILY Cholecalciferol (Vitamin D3) [Vitamin D3 (125 MCG = 5,000 IU)] 125 mcg PO DAILY Apixaban [Eliquis] 5 mg PO BID Tylenol(Dose Unknown) 1 tab PO DIRECTED PRN PRN Reason: pain Discharge Medication List Metoprolol Tartrate [Lopressor] 12.5 mg PO DAILY 12/06/17 [History] Finasteride [Proscar] 5 mg PO HS 02/26/18 [History] Apixaban [Eliquis] 5 mg PO BID 09/10/21 [History] Ascorbic Acid [Vitamin C] 500 mg PO DAILY 09/10/21 [History] Cholecalciferol (Vitamin D3) [Vitamin D3 (125 MCG = 5,000 IU)] 125 mcg PO DAILY 09/10/21 [History] Tylenol(Dose Unknown) 1 tab PO DIRECTED PRN 09/10/21 [History] HYDROcodone/APAP 7.5-325MG [[place] 7.5-325] 1 - 2 tab PO Q6H PRN #32 tab 09/15/21 [Rx] Sennosides [Senokot] 2 tab PO DAILY PRN #60 tablet 09/15/21 [Rx] Tamsulosin [Flomax] 0.4 mg PO BID #60 cap 09/17/21 [Rx] Follow up Appointment(s)/Referral(s): [facility],Equipment [NON-STAFF] - As Needed (*Please call [facility] once home to arrange delivery of the Continuous Passive Motion (CPM) machine. ) Altaf Duff MD [Primary Care Provider] - 1 Week [facility], [NON-STAFF] - ([facility] will call you to schedule your in home physical therapy visits. ) Eddie Lozada DO [Doctor of Osteopathic Medicine] - 09/30/21 2:05 pm Activity/Diet/Wound Care/Special Instructions: Weightbearing as tolerated with a walker. CPM 5-6h daily as tolerated. Leave dressing intact. Dressing may be removed by home care nurse or by patient in 7 days. Then change dressing twice daily until follow up. May shower with initial dressing intact and after removal. If dressing become saturated, please remove. Recommend use of compression stockings daily until follow up to help prevent swelling and blood clots. May remove at night before sleeping. Please resume Eliquis. Please follow up with [facility] and call with any questions or concerns, . Discharge Disposition: HOME WITH HOME HEALTH SERVICES
--- NOTE | 2021-09-17 10:00 | P.PN ---
Subjective Progress Note Date: 09/17/21 HISTORY OF PRESENT ILLNESS 80-year-old male one of my office patient with past medical history of A. fib, hypertension, prostate disorders, obstructive sleep apnea, history of ESBL with her current infection in the past who had suffered from severe arthritis of the right knee for the last few years become much worse this winter ended up having significant restriction to motion and mobility changes social life and activity significantly. Patient had seen orthopedic and after failure to conservative management decided to go for intervention with total knee arthroplasty. Surgery was done today successfully patient developed to have slight lightheadedness and dizziness afterward specially with any type of mobility. Patient was to be continue on hydration and continue to withhold any opiate Or any pain meds at this point unless needed. 09/16: Patient states that he had a rough night with nausea and dry heaves. He was able to urinate this morning with urinal. Pain is present and he will be working with PT and OT for the first time this morning. Patient resumed back on eliquis. He has been afebrile, heart rate 82, blood pressure 120/67, pulse ox 97% on room air. WBC 11.6 and hemoglobin 12.6. Patient is scheduled for discharge home today. Medication reconciliation has been reviewed. 09/17: Yesterday, patient had ongoing problems with urinary retention and required straight cath/Wood catheter, Flomax was increased to twice daily and a prescription is been sent to his pharmacy. Consult was in for urology. Patient is cleared for medicine for discharge if cleared by urology. Patient states that he is known to have larger residuals been normal. REVIEW OF SYSTEMS Constitutional: No fever, no chills, no night sweats. No weight change. No weakness, fatigue or lethargy. No daytime sleepiness. EENT: No headache. No blurred vision or double vision, no loss of vision. No loss of Hearing, no ringing in the ears, no dizziness. No nasal drainage or congestion. No epistaxis. No sore throat. Lungs: No shortness of breath, cough, no sputum production. No wheezing. Cardiovascular: No chest pain, no lower extremity edema. No palpitations. No paroxysmal nocturnal dyspnea. No orthopnea. No lightheadedness or dizziness. No syncopal episodes. Abdominal: No abdominal pain. No nausea, vomiting. No diarrhea. No consti pation. No bloody or tarry stools.. No loss of appetite. Genitourinary: No dysuria, increased frequency, urgency. Reports urinary retention. Musculoskeletal: No myalgias. No muscle weakness, no gait dysfunction, no frequent falls. No back pain. No neck pain.right knee incision lightheadedness and dizziness has resolved. looks fine with no hemorrhage. Integumentary: No wounds, no lesions. No rash or pruritus. No unusual bruising. No change in hair or nails. Neurologic: No aphasia. No facial droop. No change in mentation. No head injury. No headache. No paralysis. No paresthesia.mild lightheadedness and dizziness. Psychiatric: No depression. No anxiety. No mood swings. Endocrine: No abnormal blood sugars. No weight change. No excessive sweating or thirst. No cold intolerance. PHYSICAL EXAMINATION Gen: This is overweight slightly lightheaded at the time sitting in bed does not look in any respiratory distress. HEENT: Head is atraumatic, normocephalic. Pupils equal, round. Sclerae is anicteric. NECK: Supple. No JVD. No lymphadenopathy. No thyromegaly. LUNGS: decreased for some relative final climb no crackles or wheezes. HEART: Irregular rate and rhythm. No murmur. ABDOMEN: Soft. Bowel sounds are present. No masses. No tenderness. EXTREMITIES: incision in the right knee Patient is able to wiggle his toesno sign of bleeding NEUROLOGICAL: Patient is awake, alert and oriented x3. Cranial nerves 2 through 12 are grossly intact. ASSESSMENT AND PLAN 1.post right total knee arthroplasty: Stable post surgery continue to have slight effect of anesthesia with mild lightheadedness and dizziness we watch patient hemodynamic status carefully meanwhile his blood pressure has been mildly elevated, pulse rate slightly fluctuated otherwisedoing well stable. 2 history of A. fib: Has been on Eliquis which will be resumed tomorrow we'll continue patient on metoprolol tartrate 12.5 mg twice a day. 3 hypertension: Stable on metoprolol tartrate. 4 BPH with urinary retention. Continue Proscar and Avenue Flomax 0.4 mg twice daily, urology consult. 5 chronic pain syndrome: With severe degenerative arthritis along with lower lumbar disease, patient remain on smaller dose of hydrocodone on as needed basis. 6 GI prophylaxis: Patient be continue on Pepcid 20 mg daily. 7 DVT prophylaxis: Early mobilization, knee-high TYE hose and start Eiquis. 8 CODE STATUS: Full code. Dr. Lozada thank you very much for the consult if I can be any further help to please let me know. Impression and plan of care have been directed as dictated by the signing physician. Kortney Alvarez nurse practitioner acting as scribe for signing physician. Objective - Vital Signs Vital signs: Vital Signs Temp 97.9 F 09/17/21 08:00 Pulse 87 09/17/21 08:00 Resp 16 09/17/21 08:00 BP 124/67 09/17/21 08:00 Pulse Ox 96 09/17/21 08:00 FiO2 Intake & Output 09/16/21 09/17/21 09/17/21 18:59 06:59 18:59 Intake Total 928 Output Total 1425 1700 Balance -1425 -772 Intake: IV 8 Invasive Line 2 8 Oral 920 Output: Urine 875 1700 Straight 600 Post Void Residual 550 Other: Voiding Method Indwelling Catheter - Labs CBC & Chem 7: 09/16/21 05:27 Labs: Abnormal Lab Results - Last 24 Hours (Table) 09/16/21 Range/Units 05:27 WBC 11.69 H (4.50-10.00) X 10*3/uL RBC 3.95 L (4.40-5.60) X 10*6/uL Hgb 12.6 L (13.0-17.0) g/dL Hct 38.3 L (39.6-50.0) % Immature Gran # 0.05 H (0.00-0.04) X 10*3/uL Neutrophils # 9.50 H (1.80-7.70) X 10*3/uL Monocytes # 1.19 H (0.20-1.00) X 10*3/uL Eosinophils # 0.02 L (0.04-0.35) X 10*3/uL
--- NOTE | 2021-09-17 15:32 | P.GSCN ---
History of Present Illness Consult date: 09/17/21 Reason for Consult: Urinary retention History of present illness: This is an 80-year-old male that underwent right-sided knee replacement on September [address] Lozada. Patient has been having elevated postvoid residual of 400 mL, subsequently a Wood catheter was reinserted yesterday. He follows up with Dr. Cabrales as an outpatient. He does have history of urinary retention, underwent greenlight prostate laser ablation, approximetely 2 years ago. And since his surgery his postvoid residual has been running in 300-400 mL range. He indicated prior to Wood insertion he's been able to void on his own, but has having elevated postvoid residual at 400. Denies any dysuria or gross hematuria. He indicated his voiding is stable compared to his baseline. Review of Systems - Constitutional Denies fever, Denies weight loss - EENT Ears, nose, mouth and throat: Denies dysphagia - Cardiovascular Denies chest pain, Denies shortness of breath - Respiratory Denies cough, Denies 7 - Gastrointestinal Reports as per HPI - Genitourinary Denies dysuria, Denies hematuria Past Medical History Past Medical History: Atrial Fibrillation, Hypertension, Prostate Disorder, Sleep Apnea/CPAP/BIPAP Additional Past Medical History / Comment(s): past BPH and had greenlight laser treatment at [place], uses cpap, constipation, History of Any Multi-Drug Resistant Organisms: ESBL Year Discovered:: 01/31/18 MDRO Source:: ESBL URINE, BLOOD Past Surgical History: Cholecystectomy, Orthopedic Surgery, Prostate Surgery Additional Past Surgical History / Comment(s): 01/25/18 prostrate greenlight laser treatment at [place], right first digit top phlange removed, bilateral knee arthroscopy, Past Anesthesia/Blood Transfusion Reactions: Postoperative Nausea & Vomiting (PONV) Past Psychological History: No Psychological Hx Reported Additional Psychological History / Comment(s): . Smoking Status: Former smoker Past Alcohol Use History: Daily Additional Past Alcohol Use History / Comment(s): quit smoking 30 yrs ago Past Drug Use History: None Reported - Past Family History Father Family Medical History: Dementia Additional Family Medical History / Comment(s): Father at age 72 from heart failure with history of Alzheimer dementia. Mother Family Medical History: No Reported History Additional Family Medical History / Comment(s): . Brother(s) Additional Family Medical History / Comment(s): Patient has 3 brothers. One with history of prostate cancer, 1 with benign prostatic hypertrophy, and one with unknown medical problems. Sister(s) Additional Family Medical History / Comment(s): Patient has one sister that at age 9 from some type of congenital brain disorder, unknown type. Patient has 2 daughters and 1 son with no major medical problems. Medications and Allergies Home Medications Medication Instructions Recorded Confirmed Type Metoprolol Tartrate [Lopressor] 12.5 mg PO DAILY 12/06/17 09/10/21 History Finasteride [Proscar] 5 mg PO HS 02/26/18 09/10/21 History Apixaban [Eliquis] 5 mg PO BID 09/10/21 09/10/21 History Ascorbic Acid [Vitamin C] 500 mg PO DAILY 09/10/21 09/10/21 History Cholecalciferol (Vitamin D3) 125 mcg PO DAILY 09/10/21 09/10/21 History [Vitamin D3 (125 MCG = 5,000 IU)] Tylenol(Dose Unknown) 1 tab PO DIRECTED PRN 09/10/21 09/10/21 History HYDROcodone/APAP 7.5-325MG [[place] 1 - 2 tab PO Q6H PRN #32 tab 09/15/21 Rx 7.5-325] Sennosides [Senokot] 2 tab PO DAILY PRN #60 tablet 09/15/21 Rx Tamsulosin [Flomax] 0.4 mg PO BID #60 cap 09/17/21 Rx Allergies Allergy/AdvReac Type Severity Reaction Status Date / Time terbinafine [From Lamisil] Allergy Rash/Hives Verified 09/15/21 09:52 sulfamethoxazole AdvReac Unknown Verified 09/15/21 09:52 [From Bactrim] trimethoprim [From Bactrim] AdvReac Unknown Verified 09/15/21 09:52 Surgical - Exam Vital Signs Temp Pulse Resp BP Pulse Ox 97.8 F 80 20 140/85 99 09/15/21 09:56 09/15/21 09:56 09/15/21 09:56 09/15/21 09:56 09/15/21 09:56 - General no distress, no pain - Eyes normal ocular movement, no pale - ENT normal nares, normal mucosa - Respiratory normal expansion, normal respiratory effort - Abdomen Abdomen: soft, non tender Results - Labs 09/16/21 05:27 Assessment and Plan Assessment: 80-year-old male status post right knee replacement, has been having elevated postvoid residual following surgery. History of greenlight laser ablation approximate 2 years ago for urinary retention. Since his surgery he's been having elevated postvoid 300-400 mL, but able to void spontaneously. At baseline patient does not void completely, was having no issues with his incomplete bladder emptying. Given that the patient is emptying greater than 50% of his bladder. Okay to remove the Wood catheter from urology standpoint, if his voiding more than 50% and his postvoid is less than 400 okay for discharge from urology standpoint. Recommend starting patient on Flomax and start him on few weeks of Flomax. He can follow-up with Dr. Cabrales in 2 weeks
== END 2021-09-17 14:45 | disposition home health service (06) ==
LOC: OR 09:36 → 4SSUR 12:44 → OR 09-16 07:22 → 4SSUR 09-16 07:30
PROVIDERS: ADMIT Orthopaedic Surgery; ATTEND Orthopaedic Surgery
DX: M17.11 Unilateral primary osteoarthritis, right knee (principal); G47.33 Obstructive sleep apnea (adult) (pediatric); I48.91 Unspecified atrial fibrillation; E78.5 Hyperlipidemia, unspecified; H91.90 Unspecified hearing loss, unspecified ear; N40.1 Benign prostatic hyperplasia with lower urinary tract symptoms; I11.9 Hypertensive heart disease without heart failure; G89.4 Chronic pain syndrome; Z85.828 Personal history of other malignant neoplasm of skin; Z97.3 Presence of spectacles and contact lenses; Z90.49 Acquired absence of other specified parts of digestive tract; Z98.890 Other specified postprocedural states; Z82.0 Family history of epilepsy and other diseases of the nervous system; Z82.49 Family history of ischemic heart disease and other diseases of the circulatory system; Z86.19 Personal history of other infectious and parasitic diseases; Z87.891 Personal history of nicotine dependence; Z79.01 Long term (current) use of anticoagulants; Z79.899 Other long term (current) drug therapy; Z88.8 Allergy status to other drugs, medicaments and biological substances
CPT/HCPCS: 27447; 97116; 97161; 97535; 97165; 64999; 64448; 76942; 85025; 88300; 73560; G0378 ×2; C1713; C1776; S0138 ×2; J2250; J1100; J0690 ×3; J2405; J3010; J1170 ×4; J2795 ×2; J2704; J2001

== ENCOUNTER → 2023-08-15 | Outpatient (CLI) | payer MEDICARE ==
[2023-08-15 12:47] LABS: ALT 22 U/L (4-49); AST 26 U/L (17-59); African American GFR (CKD) 87 (>60 ml/min/1.73 sqM); Albumin 4.4 g/dL (3.5-5.0); Albumin/Globulin Ratio 1.7; Alkaline Phosphatase 50 U/L (38-126); Anion Gap 6 mmol/L; Blood Urea Nitrogen 17 mg/dL (9-20); Calcium 9.8 mg/dL (8.4-10.2); Carbon Dioxide 27 mmol/L (22-30); Chloride 106 mmol/L (98-107); Globulin 2.6 g/dL; Glucose 105 mg/dL (74-99); Non-African American GFR(CKD) 76 (>60 ml/min/1.73 sqM); Potassium 4.6 mmol/L (3.5-5.1); Sodium 139 mmol/L (137-145); Total Bilirubin 1.3 mg/dL (0.2-1.3)
[2023-08-15 15:05] LABS: Blood Urea Nitrogen 15.7 mg/dL (9.0-27.0); LDL Cholesterol,Calculated 97.8 mg/dL (0.0-131.0); VLDL Calculation 18.14 mg/dL (5.00-40.00)
[2023-08-15 15:37] LABS: Basophils # (A) 0.08 X 10*3/uL (0.00-0.10); Basophils % (A) 1.3 %; Eosinophils # (A) 1.06 X 10*3/uL (0.04-0.35); HCT 45.2 % (39.6-50.0); HGB 15.5 g/dL (13.0-17.0); Lymphocytes # (A) 1.07 X 10*3/uL (0.90-5.00); Lymphocytes % (A) 17.2 %; MCH 32.4 pg (27.0-32.0); MCHC 34.3 g/dL (32.0-37.0); MCV 94.6 FL (80.0-97.0); Mean Platelet Volume 10.6 FL (9.5-12.2); Monocytes # (A) 0.53 X 10*3/uL (0.20-1.00); Monocytes % (A) 8.5 %; NRBC Per 100 WBC 0 X 10*3/uL (0.00-0.01); Neutrophils # (A) 3.46 X 10*3/uL (1.80-7.70); Neutrophils % (A) 55.7 %; Platelet Count 202 X 10*3/uL (140-440); RBC 4.78 X 10*6/uL (4.40-5.60); RDW 13.2 % (11.5-14.5); WBC 6.22 X 10*3/uL (4.50-10.00)
--- NOTE | 2023-08-17 17:22 | CT ---
EXAMINATION TYPE: CT abdomen pelvis w con DATE OF EXAM: 08/15/2023 COMPARISON: 02/02/2018 INDICATION: Diverticulitis DLP: 2097.1 mGycm, Automated exposure control for dose reduction was used. CONTRAST: 100 mL of Isovue 300. Study performed with Oral Contrast TECHNIQUE: Axial images were obtained from above the diaphragm to the pubic rami in the axial plane a t 5 mm thick sections. Reconstructed images are reviewed on the computer in the coronal plane. FINDINGS: Limited CT sections are obtained the lung bases. The lung bases are clear. CT ABDOMEN: Liver: Fatty infiltration of liver is present. Spleen: Normal Pancreas: Normal Adrenal glands: Left adrenal gland is mildly thickened at 1.2 cm. Gallbladder: Normal Kidneys: No masses are evident. No hydronephrosis is present. No cysts are present. Delayed images were obtained through the kidneys, which remain unremarkable. Aorta: Vascular calcification is within the aorta. Inferior vena cava: Normal. CT PELVIS: Loops of bowel within the abdomen and pelvis are normal. Scattered diverticula are present. No adjace nt inflammatory changes are evident however. There are loops of bowel which are incompletely diste nded or lack oral contrast limiting their evaluation. Appendix: Normal as visualized. Urinary bladder: Normal. Genitourinary structures: Prostate is prominent. Osseous structures: No suspicious lytic or sclerotic lesions. IMPRESSION: 1. Diverticulosis. No suspicious change to suggest acute diverticulitis. 2. Prostate hypertrophy. 3. Mild fatty infiltration liver. 4. Minimal thickening of the left adrenal gland.
== END | disposition home or self-care (01) ==
LOC: RADCTMAIN 11:07
PROVIDERS: ATTEND Internal Medicine Geriatric Medicine
DX: K57.30 Diverticulosis of large intestine without perforation or abscess without bleeding (principal); K57.92 Diverticulitis of intestine, part unspecified, without perforation or abscess without bleeding; E78.2 Mixed hyperlipidemia; R10.9 Unspecified abdominal pain; N40.0 Benign prostatic hyperplasia without lower urinary tract symptoms; K76.0 Fatty (change of) liver, not elsewhere classified; E27.8 Other specified disorders of adrenal gland
CPT/HCPCS: 80061; 80053; 82565; 84443; 84520; 85025; 74177; 36415; Q9967

== ENCOUNTER → 2024-02-22 | Outpatient (CLI) | payer MEDICARE ==
[2024-02-22 14:32] VITALS: BP 141/78; PULSE 85; RESP 18; TEMP 97.9
--- NOTE | 2024-02-22 16:03 | P.SLEEP ---
History of Present Illness DATE: 02/22/2024 CONSULTATION/NEW PATIENT EVALUATION HISTORY OF PRESENT ILLNESS/SLEEP-WAKE EVALUATION: 83-year-old gentleman had b een evaluated in the sleep center for obstructive sleep apnea hypopnea syndrome. Last time patient was seen in our office on 10/30/2015. Patient continued to use his BiPAP equipment every night for the whole night. I checked a BiPAP unit pressure is 8/4 usage of 100% of nights, average 6.8 hours per night. Leak increased to 28 L/min. Apnea hypopnea index average significantly increased for the last months to 15.6. Total life expectancy of the BiPAP unit was exceeded. SLEEP SCHEDULE: Usually sleep schedule from 810 PM to 7 AM. FALLING ASLEEP: No problems with falling asleep. DURING SLEEP: Patient wakes up from sleep up to 3 times with 3 episodes of nocturia. No history of hypnogogical hallucinations, sleep paralysis, or cataplexy. DURING THE DAY/WAKE STATE: Patient feels sleepiness during the day. [place] sleepiness scale is increased to 15. Patient takes 1 nap during the day at the afternoon. PAST MEDICAL HISTORY: Atrial fibrillation, BPH. PAST SURGICAL HISTORY: Right knee replacement, left knee arthroscopic surgery. MEDICATIONS: Please see below. SOCIAL HISTORY: Please see below. FAMILY HISTORY: Please see below. REVIEW OF SYSTEMS: No snoring on BiPAP. No fevers. No double vision. No recent chest pain. No shortness of breath. No abdominal pain. No bleeding episodes. No blood in urine. No seizure episodes. PHYSICAL EXAMINATION: GENERAL: A pleasant patient without any distress. VITAL SIGNS: Please see below, weight 257.8 pounds, BMI 36.7. HEENT: PERRLA, EOMI. Evaluation of oropharynx showed tongue protrudes midline, low position of soft palate Mallampati 4. NECK: Supple. No JVD. Thyroid is not palpable. 18 inches in circumference. LUNGS: Clear to percussion and to auscultation. Good air exchange. No wheezing or rhonchi. HEART: S1, S2 regular. No murmurs, gallops or rubs. ABDOMEN: Soft and nontender. Bowel sounds are present. No organomegaly appreciated. EXTREMITIES: No clubbing or cyanosis. RECOVERY ASSISTANT: Awake, alert, and oriented x3. Cranial nerves 2 to 7 intact. There is no fasciculation or atrophy noted. No focal deficits observed. ASSESSMENT: 1. 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 Patient continued to use BiPAP equipment every night. Apnea hypopnea index reading from BiPAP unit significantly increased for 15.6 average for the last months and 24 for the last night. Low position of soft palate Mallampati 4. Sleepiness during the day with [place] Sleepiness Scale significantly increased to 15. 2. Obesity, BMI 36.7. 3. Atrial fibrillation. 4. Status post cholecystectomy. 5 status post right knee replacement. 6 . Status post left knee arthroscopic surgery. 7. BPH. I increased pressure in BiPAP unit to 10/6 cm of water. PLAN: 1. PAP titration for correction of respiratory abnormalities at the present time. Presently patient is on BiPAP. 2. Patient will need to replace BiPAP unit, motor life expectancy was exceeded.. 3. Preferable position during sleep on the side. 4. No driving if patient feels any sleepiness. Patient is aware of civil and criminal liability for unsafe driving. 5. Sleep hygiene with regular sleep time for at least 7.5-8 hours. 6. Watching and losing weight. Thank you very much for referring this patient for consultation. Sincerely, Theo Jackson MD, PhD, FAASM. Diplomat of [place] [employer], Sleep Medicine Board by [place] [employer] [place] [employer] Motor Operator [facility] [place] cc: Altaf Duff MD Past Medical History Past Medical History: Atrial Fibrillation, Prostate Disorder, Sleep Apnea/CPAP/BIPAP Additional Past Medical History / Comment(s): Current UTI, recent urinary retention/IDC which was discontinued 01/30/18, past BPH and had greenlight laser treatment at [facility], TORI with bipap History of Any Multi-Drug Resistant Organisms: ESBL Date of last positivie culture/infection: 01/31/18 MDRO Source:: ESBL URINE, BLOOD Past Surgical History: Cholecystectomy, Orthopedic Surgery, Prostate Surgery, Tonsillectomy Additional Past Surgical History / Comment(s): 01/25/18 prostrate greenlight laser treatment at [facility], right first digit top phlange removed, bilateral knee arthroscopy, colonoscopy-normal. Shingles (after I had the shot) Past Anesthesia/Blood Transfusion Reactions: No Reported Reaction Past Psychological History: No Psychological Hx Reported Additional Psychological History / Comment(s): Pt resides with his spouse of 57yrs. He is independent. Smoking Status: Former smoker Past Alcohol Use History: Daily Additional Past Alcohol Use History / Comment(s): Patient was a smoker one and half packs per day for 15-20 years and quit 40 years ago. He drinks a couple beers per day during the summer. He lives at home with his . Past Drug Use History: None Reported - Past Family History Father Family Medical History: Dementia Additional Family Medical History / Comment(s): Father at age 72 from heart failure with history of Alzheimer dementia. Mother Family Medical History: No Reported History Additional Family Medical History / Comment(s): .Scoliosis and related issues/surgeries. Brother(s) Additional Family Medical History / Comment(s): Patient has 3 brothers. One with history of prostate cancer, 1 with benign prostatic hypertrophy, and one with unknown medical problems. Sister(s) Additional Family Medical History / Comment(s): Patient has one sister that at age 9 from some type of congenital brain disorder, unknown type. Patient has 2 daughters and 1 son with no major medical problems. Medications and Allergies Home Medications Medication Instructions Recorded Confirmed Type Metoprolol Tartrate [Lopressor] 12.5 mg PO DAILY 12/06/17 09/10/21 History Finasteride [Proscar] 5 mg PO HS 02/26/18 02/22/24 History Apixaban [Eliquis] 5 mg PO BID 09/10/21 02/22/24 History Ascorbic Acid [Vitamin C] 500 mg PO DAILY 09/10/21 09/10/21 History Cholecalciferol (Vitamin D3) 125 mcg PO DAILY 09/10/21 09/10/21 History [Vitamin D3 (125 MCG = 5,000 IU)] Tylenol(Dose Unknown) 1 tab PO DIRECTED PRN 09/10/21 09/10/21 History HYDROcodone/APAP 7.5-325MG [[place] 1 - 2 tab PO Q6H PRN #32 tab 09/15/21 Rx 7.5-325] Sennosides [Senokot] 2 tab PO DAILY PRN #60 tablet 09/15/21 Rx Tamsulosin [Flomax] 0.4 mg PO BID #60 cap 09/17/21 Rx Metoprolol Succinate (ER) [Toprol 12.5 mg PO DAILY 02/22/24 02/22/24 History Xl] Allergies Allergy/AdvReac Type Severity Reaction Status Date / Time terbinafine [From Lamisil] Allergy Rash/Hives Verified 09/15/21 09:52 sulfamethoxazole AdvReac Unknown Verified 09/15/21 09:52 [From Bactrim] trimethoprim [From Bactrim] AdvReac Unknown Verified 09/15/21 09:52 Physical Exam Vitals: Vital Signs Temp Pulse Resp BP Pulse Ox 02/22/24 14:31 97.9 F 85 18 141/78 96 Intake and Output 02/22/24 02/22/24 02/22/24 06:59 14:59 22:59 Other: Weight 107.728 kg Sleep Note - Sleep Data ESS Total: 15 - Sleep Note Sleep Note: Temperature: 97.9 F Pulse Rate: 85 Respiratory Rate: 18 Blood Pressure: 141/78 SpO2: 96 Height: 6 ft 0.05 in Weight: 107.728 kg BMI: Neck Circumference: 18
== END ==
LOC: 3 N SLEEP 14:04
PROVIDERS: ATTEND Internal Medicine
DX: G47.33 Obstructive sleep apnea (adult) (pediatric) (principal); G47.31 Primary central sleep apnea; E66.9 Obesity, unspecified; I48.91 Unspecified atrial fibrillation; N40.0 Benign prostatic hyperplasia without lower urinary tract symptoms; Z98.890 Other specified postprocedural states; Z90.49 Acquired absence of other specified parts of digestive tract; Z96.651 Presence of right artificial knee joint; Z68.36 Body mass index [BMI] 36.0-36.9, adult; Z88.2 Allergy status to sulfonamides; Z88.1 Allergy status to other antibiotic agents; Z88.8 Allergy status to other drugs, medicaments and biological substances; Z79.01 Long term (current) use of anticoagulants; Z87.891 Personal history of nicotine dependence
CPT/HCPCS: 99211

== ENCOUNTER 2024-03-11 19:23 | Outpatient (CLI) | payer MEDICARE ==
--- NOTE | 2024-03-12 10:31 | P.PCN ---
Description of Procedure: CLINICAL: Titration with positive air pressure has been done for correction of respiratory abnormalities during sleep. DESCRIPTION OF PROCEDURE: The standard montage for clinical polysomnography included the electroencephalogram, the electrocardiogram, the mentalis surface electromyography and Lead II cardiography. The respiratory battery consisted of measurements of nasal /buccal air flow, pressure transducer measurements from the nose, thoracic and /or abdominal effort and intercostal surface electromyography. Video monitoring has been done to check for any parasomnia events. Nocturnal oxyhemoglobin saturations were obtained by finger oximetry. Step-ayon titration with positive airway pressure was utilized to control respiratory events. Raw data of sleep recording has been reviewed and is adequate. RESULTS: Sleep efficiency was decreased to 80.8%. Latency to sleep onset was in short range of 7.0 minutes.]. Sleep architecture showed stage N1 was extremely short 0.6%, Delta sleep was normal 8.1%, REM sleep was borderline high 29.5%. Heart rate was minimum 58 BPM, maximum 72 BPM, average 65 BPM. EMG showed 27.3 periodic limb movements per hour with 0.9 micriarousals per hour. PAP titration have been done with CPAP up to the pressure 8 cm H2O. The best results were at the pressure 6 cm H2O. Apnea hypopnea index reduced to 0.6. IMPRESSION: 1. Obstructive sleep apnea hypopnea syndrome mostly on controle with PAP treatment. 2. Periodic limb movements have been documented. Please see other impressions from consultation. PLAN: 1. The patient will have treatment with positive air pressure equipment with the level of pressure AutoPAP 5-8 cm H2O and should use it every night for the whole night. 2. Watching weight. 3. Sleep hygiene with regular time in bed for at least 8 hours. 4. No driving if feeling any sleepiness. 5. I will see the patient for follow up visit to explain the results of the test, recommendations, check compliance with treatment and make any necessary adjustment related to mask fitting, pressure and humidification. 6. Please check iron profile including ferritin level. Low level of iron may increase risk for periodic limb movements Thank you very much for allowing me to participate in the management of your patient. Sincerely, Theo Jackson MD, PhD, FAASM Diplomat of [place] [employer] Sleep Medicine Board of [place] [employer]ouflage Specialist [facility] [place] cc: Altaf Duff MD
== END 2024-03-12 05:10 | disposition home or self-care (01) ==
LOC: 3 N SLEEP 19:23
PROVIDERS: ATTEND Internal Medicine
DX: G47.33 Obstructive sleep apnea (adult) (pediatric) (principal); G47.61 Periodic limb movement disorder; Z88.8 Allergy status to other drugs, medicaments and biological substances; Z88.2 Allergy status to sulfonamides; Z88.1 Allergy status to other antibiotic agents; Z87.891 Personal history of nicotine dependence
CPT/HCPCS: 95811

== ENCOUNTER → 2024-05-17 | Outpatient (CLI) | payer MEDICARE ==
[2024-05-17 14:27] VITALS: BP 142/92; PULSE 64; RESP 16; TEMP 97.4
--- NOTE | 2024-05-17 15:03 | P.PROGSL ---
Subjective DATE: 05/17/2024 FOLLOW UP VISIT. Patient with obstructive sleep apnea hypopnea syndrome return to sleep center for follow-up visit. Information from previous visit have been reviewed. Patient recently had CPAP titration and today is first visit after patient received new PAP unit. Patient is using PAP equipment every night for the whole night, getting PAP supplies in time. The patient does not have significant problems with the mask, PAP unit and humidification. [place] sleepiness scale is slightly increased to 11. I checked information from PAP unit. PAP unit pressure 5-8, average 7.4 cm H2O. Usage is 90% and 87% for more then 4 hours, average 7.75 hours per night. Leak is 26.9 l/m, which is in acceptable range. Apnea Hypopnea Index is increased to 9.1. MEDICATIONS have been reviewed, please see below. During physical exam: GENERAL: A pleasant patient without any distress. VITAL SIGNS: Please see below, weight is 244.0 lbs. HEENT: PERRLA, EOMI.low position of soft palate, Mallapati 4 . NECK: Supple. No JVD. LUNGS: Clear to percussion and to auscultation. Good air exchange. No wheezing or rhonchi. HEART: S1, S2 irregular. ABDOMEN: Soft and nontender.[] EXTREMITIES: No clubbing or cyanosis. NURSE UNIT MANAGER: Awake, alert, and oriented x3. No focal deficit. Impressions: 1. Obstructive sleep apnea-hypopnea syndrome. Patient demonstrated great compliance with treatment, benefiting from treatment. 2. Obesity. 3. Atrial fibrillation. 4. Status post right knee replacement. 5. Status post left knee arthroscopic surgery. 6. BPH. I changed range of the pressure in AutoPap to 5-12 cm of water. Plan: 1. Continue using PAP equipment every night for the whole night. 2. Sleep hygiene with regular time in bed for at least 7.5-8 hours 3. PAP unit should stay lower then position of the head. 4. Advised patient to remove all remaining water from humidifier canister daily and make it dry after each usage. Refill canister with fresh distilled water before each usage. 5. Watching and losing weight. 6. Precautions related to driving. No driving if feel any sleepiness. 7. I will maintain prescription for PAP supplies including mask, tube, filters. 8. Follow up visit in 4 months or earlier if patient has any problems. Thank you very much for allowing me to participate in the management of your patient. Theo Jackson MD, PhD, FAASM. Diplomat of [place] [employer], Sleep Medicine Board by [place] [employer] Business Sales Consultant [facility] [place] Objective - Vital Signs Vital Signs: Vital Signs Temp 97.4 F L 05/17/24 14:26 Pulse 64 05/17/24 14:26 Resp 16 05/17/24 14:26 BP 142/92 05/17/24 14:26 Pulse Ox 98 05/17/24 14:26 FiO2 Home Medications: Home Medications Medication Instructions Recorded Confirmed Type Metoprolol Tartrate [Lopressor] 12.5 mg PO DAILY 12/06/17 09/10/21 History Finasteride [Proscar] 5 mg PO HS 02/26/18 02/22/24 History Apixaban [Eliquis] 5 mg PO BID 09/10/21 02/22/24 History Ascorbic Acid [Vitamin C] 500 mg PO DAILY 09/10/21 09/10/21 History Cholecalciferol (Vitamin D3) 125 mcg PO DAILY 09/10/21 09/10/21 History [Vitamin D3 (125 MCG = 5,000 IU)] Tylenol(Dose Unknown) 1 tab PO DIRECTED PRN 09/10/21 09/10/21 History HYDROcodone/APAP 7.5-325MG [[place] 1 - 2 tab PO Q6H PRN #32 tab 09/15/21 Rx 7.5-325] Sennosides [Senokot] 2 tab PO DAILY PRN #60 tablet 09/15/21 Rx Tamsulosin [Flomax] 0.4 mg PO BID #60 cap 09/17/21 Rx Metoprolol Succinate (ER) [Toprol 12.5 mg PO DAILY 02/22/24 02/22/24 History Xl]
== END ==
LOC: 3 N SLEEP 14:08
PROVIDERS: ATTEND Internal Medicine
DX: G47.33 Obstructive sleep apnea (adult) (pediatric) (principal); E66.9 Obesity, unspecified; I48.91 Unspecified atrial fibrillation; Z96.651 Presence of right artificial knee joint; N40.0 Benign prostatic hyperplasia without lower urinary tract symptoms; Z98.890 Other specified postprocedural states; Z87.891 Personal history of nicotine dependence; Z79.899 Other long term (current) drug therapy; Z88.2 Allergy status to sulfonamides
CPT/HCPCS: 99212